=== PATIENT | female | born 1940 | race Caucasian/White ===

== ENCOUNTER 2022-02-10 09:44 | Inpatient (IN) ==
[2022-02-10] MEDS ORDERED: 0.9 % SODIUM CHLORIDE 1,000 ML IV ONE (09:50)
[2022-02-10 10:13] LABS: POC Calcium, Ionized 1.16 (1.16-1.32); POC Creatinine 1.7 (0.6-1.2); POC Potassium 4.3 (3.3-5.1)
--- NOTE | 2022-02-10 10:26 | Emergency Department Note ---
HPI General Chief complaint: Wound/Laceration Stated complaint: Lower Leg Infection Time Seen by Provider: 02/10/22 09:50 Source: patient Mode of arrival: wheelchair Limitations: no limitations History of Present Illness HPI Narrative: Narrative: 81-year-old female presents the emergency department with wounds on both legs. She is currently seeing wound care for these the wound care Dr. Wong actually came and spoke with me and wants the patient admitted for possible sepsis as well as infection on the legs and better wound care. Patient family state that her legs do seem to be getting worse. She started to get this more ulcers and pain in both lower extremity wounds. Does not believe it is a vascularity issue thinks it could just all be a cellulitis would like basic labs sepsis including CRP and procalcitonin ordered which will be done. Patient says that she really does not want to stay but understands that she is okay with staying in the hospital to get better treatment of her legs. Patient currently has no fevers or chills just does not feel well in the pain in the legs it seems to be getting worse and they are not healing. There is been no trauma to the legs. Related Data Home Medications Medication Instructions Recorded Confirmed allopurinol 300 mg tablet 300 mg PO QDAY 01/09/15 01/17/22 carvedilol 25 mg tablet 12.5 mg PO BID 01/09/15 01/17/22 pravastatin 40 mg tablet 40 mg PO QDAY 01/09/15 01/17/22 potassium chloride 20 mEq 20 meq PO QDAY 90 days #90 tabs 03/01/18 01/17/22 tablet,extended release(part/cryst) levothyroxine 100 mcg tablet 100 mcg PO .COMPLEX 30 days 02/20/19 01/17/22 acetaminophen 325 mg capsule 325 mg PO ONCE PRN 10/06/20 10/18/21 albuterol sulfate 90 mcg/actuation 2 puff inhalation Q4H PRN 10/06/20 01/17/22 aerosol inhaler isosorbide mononitrate 60 mg 60 mg PO QDAY 10/06/20 01/17/22 tablet,extended release 24 hr losartan 25 mg tablet 25 mg PO 10/06/20 01/17/22 warfarin 2.5 mg tablet 2.5 mg PO 10/06/20 01/17/22 Lactobacillus acidophilus 1 tab PO QDAY 12/14/20 10/18/21 [Probiotic Acidophilus] calcium carbonate [Antacid 1 tab PO QDAY 12/14/20 01/17/22 (calcium carbonate)] acetaminophen 300 mg-codeine 30 mg 1 tab PO Q6H PRN 01/17/22 01/17/22 tablet gabapentin 100 mg capsule 0 mg PO 01/17/22 01/17/22 metoprolol succinate 50 mg 50 mg PO QDAY 01/17/22 01/17/22 tablet,extended release 24 hr Previous Rx's Medication Instructions Recorded calcitriol 0.25 mcg capsule 0.25 mcg PO Q OTHER DAY #15 caps 07/13/21 torsemide 20 mg tablet 20 mg PO BID CHF #180 tabs 01/20/22 Allergies Allergy/AdvReac Type Severity Reaction Status Date / Time Sulfa (Sulfonamide Allergy Severe Unknown Verified 02/10/22 09:50 Antibiotics) NSAIDS (Non-Steroidal Allergy Intermediate Unknown Verified 02/10/22 09:50 Anti-Inflamma LIDYA Inhibitors Allergy Unknown Unknown Verified 02/10/22 09:50 morphine Allergy Unknown Nausea Verified 02/10/22 09:50 pantoprazole [From Protonix] Allergy Unknown Unknown Verified 02/10/22 09:50 paregoric Allergy Unknown Nausea Verified 02/10/22 09:50 tramadol Allergy Unknown Unknown Verified 02/10/22 09:50 Review of Systems ROS ROS Narrative: Narrative: All systems ED: reviewed and negative except as stated. PFSH Narrative Patient History Narrative: Narrative: Medical/Surgical/Family History All Active Problems (Updated 02/10/22 @ 14:40 by Mynor Curiel DO) Cellulitis (Acute) Cardiac pacemaker in situ (Chronic) Restrictive lung disease (Chronic) Varicose veins of lower extremities (Chronic) Chronic venous insufficiency (Chronic) Atrophic vaginitis (Chronic) Impaired fasting glucose (Chronic) Malaise and fatigue (Chronic) IBS (irritable bowel syndrome) (Chronic) Intrinsic asthma (Chronic) Hypertension, essential (Chronic) CKD (chronic kidney disease), stage III (Chronic) Cardiomyopathy, hypertensive (Chronic) Hyperlipidemia (Chronic) GERD (gastroesophageal reflux disease) (Chronic) Hypothyroidism (Chronic) Gout (Chronic) Morbid obesity (Chronic) Allergic rhinitis (Chronic) Gastric ulcer (Chronic ~2009) History of esophagogastroduodenoscopy (Chronic) Hiatal hernia (Chronic) History of colonoscopy (Chronic) Sigmoid diverticulosis (Chronic) Diverticulitis (Chronic) PVC (premature ventricular contraction) (Chronic) Skin ulcer (Chronic) Chronic rhinitis (Chronic) History of appendectomy (Chronic) History of hysterectomy (Chronic) Hx of BSO (bilateral salpingo-oophorectomy) (Chronic) S/P removal of thyroid nodule (Chronic) History of breast biopsy (Chronic) History of open reduction and internal fixation (ORIF) procedure (Chronic) History of knee replacement (Chronic) History of varicose vein stripping (Chronic) History of cardiac cath (Chronic) Hypertensive renal disease (Chronic) 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, 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) Secondary hyperparathyroidism of renal origin (Chronic) Sebaceous cyst (Chronic) Cellulitis of left leg (Chronic) Paroxysmal atrial fibrillation (Chronic) Venous insufficiency (Chronic) Right leg swelling (Chronic) Pansinusitis (Chronic) Familial hypercholesterolemia (Chronic) Abnormal fasting glucose (Chronic) Hair loss (Chronic) Soft tissue mass (Chronic) Neck pain (Chronic) Back pain, thoracic (Chronic) Lumbar radiculitis (Chronic) Closed head injury (Chronic) Osteoarthrosis-multiple sites (Chronic) Fibromyalgia (Chronic) Diarrhea (Chronic) Duodenitis without hemorrhage (Chronic) Redness (Chronic) Hemorrhoid (Chronic) Poor circulation (Chronic) Lymphedema of lower extremity (Acute) Stasis edema with ulcer and inflammation (Acute) Superficial incisional infection of surgical site (Acute) No-show for appointment (Acute) Medical History Abnormal fasting glucose Allergic rhinitis Atrophic vaginitis Back pain, thoracic 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, 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 BNP elevated, on B-blockers, loop diuretic and ARB Weigh 190's seems good (down from 204) Cardiac pacemaker in situ 2007 - Replaced 2013 - Biventricular ICD pulse generator with defibrillator Cardiomyopathy, hypertensive Cellulitis of left leg Chronic rhinitis Chronic venous insufficiency CKD (chronic kidney disease), stage III Stable CKD 3-4 with bland U/A Controlled HTN, systolic CHF and vascular disease likely etiology Closed head injury Diarrhea Diverticulitis 2008, 2010 Duodenitis without hemorrhage Familial hypercholesterolemia Fibromyalgia Gastric ulcer (~2009) GERD (gastroesophageal reflux disease) Gout Hair loss Hemorrhoid Internal, External Hiatal hernia Hyperlipidemia Hypertension, essential Hypertensive renal disease Hypothyroidism IBS (irritable bowel syndrome) Impaired fasting glucose Intrinsic asthma Lumbar radiculitis Malaise and fatigue Morbid obesity Neck pain Osteoarthrosis-multiple sites Pansinusitis Paroxysmal atrial fibrillation Poor circulation PVC (premature ventricular contraction) Redness Restrictive lung disease Right leg swelling Sebaceous cyst Secondary hyperparathyroidism of renal origin Low dose, calcitriol qOD Sigmoid diverticulosis 2010 Skin ulcer Both Legs Soft tissue mass Left thigh Varicose veins of lower extremities Venous insufficiency Surgical History History of appendectomy History of breast biopsy History of cardiac cath 2006 - Left History of colonoscopy History of esophagogastroduodenoscopy History of hysterectomy History of knee replacement Bilateral History of open reduction and internal fixation (ORIF) procedure Left Femur History of pacemaker (~2007) Replaced 2014 History of toe surgery Left great toenail medial slantback History of varicose vein stripping bilateral legs, left-2016 Hx of BSO (bilateral salpingo-oophorectomy) 1968 - For bleeding S/P removal of thyroid nodule Family History Mother Cardiac disease Essential hypertension HTN (hypertension) ASCVD (arteriosclerotic cardiovascular disease) Father Cardiac disease ASCVD (arteriosclerotic cardiovascular disease) Brother Cardiac disease Myocardial infarct Daughter Depression Social History Smoking Status: Never smoker Alcohol Intake Frequency: does not drink Substance Use: does not use Exam Narrative Narrative: Narrative: Vital signs noted General: Awake. Alert. No distress. Skin: Warm. Dry. No rash. Obvious open wounds but no involvement of the bones almost like bilateral ulcers in both lower extremities in the tib-fib area along the shins. No involvement of the ankles. There is generalized alert erythema to both lower extremities as well. There are 2+ bilateral pedal pulses. Normal sensation and normal range of motion in both lower extremities. HEENT: NCAT. PERRL. EOMI. No conjunctivitis. No nystagmus. No pharyngitis. Membranes moist. Neck: No PTP. Good ROM. No meningeal signs. No stridor. No thyromegaly. No JVD. Cardiovascular: RRR. No murmur. No rubs. No gallops. Respiratory: No respiratory distress. Breath sounds equal. Lungs clear. Gastrointestinal: Abdomen soft. No tenderness. No distention. Normal bowel sounds. No palpable organomegaly or masses. Back: No deformity. No CVAT. Musculoskeletal: No tenderness. No swelling. No erythema. No edema. Good peripheral pulses x 4 Lymphatic: No palpable adenopathy. Neurological: No focal neurological deficits observed. General Limitations: no limitations Course Vital Signs Vital signs: Vital Signs Temperature 97.5 F 02/10/22 09:47 Pulse Rate 89 02/10/22 09:47 Respiratory Rate 18 02/10/22 09:47 Blood Pressure 121/63 02/10/22 09:47 Pulse Oximetry (%) 98 02/10/22 09:47 Oxygen Delivery Method 02/10/22 09:47 Temperature 97.5 F 02/10/22 09:47 Pulse Rate 84 02/10/22 14:02 Respiratory Rate 18 02/10/22 09:47 Blood Pressure 116/58 02/10/22 14:02 Pulse Oximetry (%) 98 02/10/22 14:02 Oxygen Delivery Method 02/10/22 09:47 MDM MDM Narrative Medical decision making narrative: Narrative: Patient has obvious wounds to both lower extremities. This could easily be sepsis. I think she does need further wound care. I think it would be most beneficial for patient to be admitted for further wound care and possibly IV antibiotics. We will going get basic labs including CRP procalc itonin lactic acid and blood cultures. I will also go ahead and get bilateral duplex ultrasounds to be sure there is not a secondary to venous stasis be sure she does not have any blood clots. Patient and family are okay with this plan. He more about fluid overload so we will only give the patient 1 L of IV fluids then reevaluate she is not currently in septic shock or in severe sepsis at this time. Do not think she needs the full 30 mL per kg iv fluid bolus. Ultrasounds were done and they showed no signs of DVT but there is some venous stasis. Patient was started on antibiotics. Patient again has no signs of sirs or sepsis at this time. I do think patient does need IV antibiotics and further wound care. We will look at admitting the patient at this time. Spoke with . Who has agreed to admit the patient. Labs to come back she had no white blood cell count CRP and procalcitonin all came back just mildly elevated lactate was normal there is again no signs of sepsis or severe sepsis. Patient will be admitted in fair condition for bilateral lower leg cellulitis and will be Followed also by wound care. Sepsis Sepsis Identified: No Lab Data Result diagrams: 02/10/22 10:05 Labs: Lab Results 02/10/22 02/10/22 02/10/22 Range/Units 10:05 10:05 10:05 WBC 8.5 (4.5-11.0) K/mcL RBC 3.19 L (3.59-5.38) M/mcL Hgb 9.6 L (11.2-15.7) g/dL Hct 31.8 L (34.1-44.9) % POC Hct (36-48) MCV 99.7 (80.0-100.0) fL MCH 30.1 (26.0-34.0) pg MCHC 30.2 L (31.0-36.0) g/dL RDW 16.2 H (11.5-14.5) % Plt Count 172 (140-440) K/mcL MPV 10.1 (8.8-12.5) fL Immature Gran % (Auto) 0.6 H (0.0-0.5) % Neut % (Auto) 76.7 (38.0-78.0) % Lymph % (Auto) 6.6 L (15.5-49.0) % [place] % (Auto) 9.6 (1.0-12.0) % Eos % (Auto) 5.8 (0.0-7.0) % Baso % (Auto) 0.7 (0.0-2.0) % Lymph # (Auto) 0.56 L (1.50-4.80) K/mcL [place] # (Auto) 0.81 (0.10-0.90) K/mcL Eos # (Auto) 0.49 (0.00-0.70) K/mcL Baso # (Auto) 0.06 (0.00-0.30) K/mcL Immature Gran # 0.05 (0.00-0.05) K/mcl Absolute Neutrophils 6.51 (1.80-8.00) K/mcL PT (11.9-14.5) sec INR (0.9-1.1) VBG Lactic Acid < 0.2 L (0.5-2.0) mmol/L POC Sodium (133-145) POC Potassium (3.3-5.1) POC Chloride (96-108) POC Total CO2 (22-30) POC BUN (6-20) POC Creatinine (0.6-1.2) POC Glucose (70-105) POC WB Ioniz Calcium (1.16-1.32) C-Reactive Protein 8.50 H (0.03-0.80) mg/dL Procalcitonin 0.12 H (<0.10) ng/mL Urine Color Urine Appearance (Clear) Urine pH (5.0-9.0) Ur Specific [place] (1.000-1.035) Urine Protein (Negative) mg/dL Urine Glucose (UA) (Negative) mg/dL Urine Ketones (Negative) mg/dL Urine Occult Blood (Negative) mg/dL Urine Nitrate (Negative) Urine Bilirubin (Negative) mg/dL Urine Urobilinogen mg/dL Ur Leukocyte Esterase (Negative) /uL Urine RBC (0-3) /hpf Urine WBC (0-4) /hpf Ur Squamous Epith Cells (0-4) /hpf Ur Transition Epith Cell (0-2) /hpf Urine Bacteria (0) /hpf Hyaline Casts (0-2) /lph Urine Mucus (None) /hpf Ur Culture Indicated? 02/10/22 02/10/22 02/10/22 Range/Units 10:05 10:10 10:26 WBC (4.5-11.0) K/mcL RBC (3.59-5.38) M/mcL Hgb (11.2-15.7) g/dL Hct (34.1-44.9) % POC Hct 31.0 L (36-48) MCV (80.0-100.0) fL MCH (26.0-34.0) pg MCHC (31.0-36.0) g/dL RDW (11.5-14.5) % Plt Count (140-440) K/mcL MPV (8.8-12.5) fL Immature Gran % (Auto) (0.0-0.5) % Neut % (Auto) (38.0-78.0) % Lymph % (Auto) (15.5-49.0) % [place] % (Auto) (1.0-12.0) % Eos % (Auto) (0.0-7.0) % Baso % (Auto) (0.0-2.0) % Lymph # (Auto) (1.50-4.80) K/mcL [place] # (Auto) (0.10-0.90) K/mcL Eos # (Auto) (0.00-0.70) K/mcL Baso # (Auto) (0.00-0.30) K/mcL Immature Gran # (0.00-0.05) K/mcl Absolute Neutrophils (1.80-8.00) K/mcL PT 26.7 H (11.9-14.5) sec INR 2.4 H (0.9-1.1) VBG Lactic Acid (0.5-2.0) mmol/L POC Sodium 138 (133-145) POC Potassium 4.3 (3.3-5.1) POC Chloride 108 (96-108) POC Total CO2 21.0 L (22-30) POC BUN 51 H (6-20) POC Creatinine 1.7 H (0.6-1.2) POC Glucose 133 H (70-105) POC WB Ioniz Calcium 1.16 (1.16-1.32) C-Reactive Protein (0.03-0.80) mg/dL Procalcitonin (<0.10) ng/mL Urine Color Yellow Urine Appearance Cloudy A (Clear) Urine pH 5.0 (5.0-9.0) Ur Specific [place] 1.020 (1.000-1.035) Urine Protein 30 A (Negative) mg/dL Urine Glucose (UA) Negative (Negative) mg/dL Urine Ketones Negative (Negative) mg/dL Urine Occult Blood 0.03 (Negative) mg/dL Urine Nitrate Negative (Negative) Urine Bilirubin Negative (Negative) mg/dL Urine Urobilinogen Negative mg/dL Ur Leukocyte Esterase 250 A (Negative) /uL Urine RBC 4 H (0-3) /hpf Urine WBC 11 H (0-4) /hpf Ur Squamous Epith Cells 6 H (0-4) /hpf Ur Transition Epith Cell < 1 (0-2) /hpf Urine Bacteria Few A (0) /hpf Hyaline Casts 9 H (0-2) /lph Urine Mucus Few A (None) /hpf Ur Culture Indicated? No Discharge Plan Patient/Caregiver Discharge Instructions Pt seen by [employer]/PA only: No Clinical Impression: Cellulitis Activity: increase activity as tolerated Patient Disposition: Xfer As Outpt/Obs ([facility]) Condition: Fair Follow up with: Susan Abad ARNP [Primary Care Provider] - Prescriptions: No Action calcitriol 0.25 mcg capsule 0.25 mcg PO Q OTHER DAY Qty: 15 11RF torsemide 20 mg tablet 20 mg PO BID Qty: 180 3RF Rx Instructions: New dose carvedilol 25 mg tablet 12.5 mg PO BID Rx Instructions: administer with food pravastatin 40 mg tablet 40 mg PO QDAY allopurinol 300 mg tablet 300 mg PO QDAY albuterol sulfate 90 mcg/actuation HFA aerosol inhaler 2 puff INHALATION Q4H PRN Rx Instructions: administer with spacer calcium carbonate [Antacid (calcium carbonate)] 1 tab PO QDAY Lactobacillus acidophilus [Probiotic Acidophilus] 1 tab PO QDAY potassium chloride 20 mEq tablet,ER particles/crystals 20 meq PO QDAY 90 Days Qty: 90 levothyroxine 100 mcg tablet 100 mcg PO .COMPLEX 30 Days Rx Instructions: 100 mcg PO Every other day with 75mg on other days; losartan 25 mg tablet 25 mg PO Label Comments: take 1/2 tablet by mouth twice a day isosorbide mononitrate 60 mg tablet extended release 24 hr 60 mg PO QDAY Label Comments: take 1 tablet by mouth every morning warfarin 2.5 mg tablet 2.5 mg PO Label Comments: take 2 tablets by mouth once daily EXCEPT 1 TABLET ON SUN, MON, AND THURS acetaminophen 325 mg capsule 325 mg PO ONCE PRN metoprolol succinate 50 mg tablet extended release 24 hr 50 mg PO QDAY Label Comments: take 1 tablet by mouth twice a day acetaminophen-codeine 300-30 mg tablet 1 tab PO Q6H PRN gabapentin 100 mg capsule 0 mg PO
[2022-02-10 10:53] LABS: Basophils # (Auto) 0.06 K/mcL (0.00-0.30); Basophils % (Auto) 0.7 % (0.0-2.0); Eosinophils # (Auto) 0.49 K/mcL (0.00-0.70); Eosinophils % (Auto) 5.8 % (0.0-7.0); Hematocrit 31.8 % (34.1-44.9); Hemoglobin 9.6 g/dL (11.2-15.7); Lymphocytes # (Auto) 0.56 K/mcL (1.50-4.80); Lymphocytes % (Auto) 6.6 % (15.5-49.0); Mean Cell Volume 99.7 fL (80.0-100.0); Mean Corpuscular HGB Conc 30.2 g/dL (31.0-36.0); Mean Platelet Volume 10.1 fL (8.8-12.5); Monocytes # (Auto) 0.81 K/mcL (0.10-0.90); Monocytes % (Auto) 9.6 % (1.0-12.0); Neutrophils % (Auto) 76.7 % (38.0-78.0); Platelet Count 172 K/mcL (140-440); RBC 3.19 M/mcL (3.59-5.38); Red Cell Distribution Width 16.2 % (11.5-14.5); WBC 8.5 K/mcL (4.5-11.0)
[2022-02-10] MEDS ORDERED: cefTRIAXone 1 GM VIAL IV ONE (11:16)
[2022-02-10 11:25] LABS: INR 2.4 (0.9-1.1); Prothrombin Time 26.7 sec (11.9-14.5)
[2022-02-10 11:47] LABS: Appearance,Urine CLOUDY (Clear); Bacteria,Urine FEW /hpf (0); Bilirubin,Urine Negative (Negative); Color,Urine YELLOW; Culture Indicated,Urine No; Glucose,Urine (UA) Negative (Negative); Ketones,Urine Negative (Negative); Leukocyte Esterase,Urine 250 /uL (Negative); Mucus,Urine FEW /hpf; Nitrate,Urine Negative (Negative); Protein,Urine 30 mg/dL (Negative); Urine Blood 0.03 mg/dL (Negative); Urine Hyaline Cast 9 /lph (0-2); Urine RBC 4 /hpf (0-3); Urine Squamous Epithelial Cell 6 /hpf (0-4); Urine Transitional Epi Cells < 1 /hpf (0-2); Urine WBC 11 /hpf (0-4); Urobilinogen,Urine Negative
--- NOTE | 2022-02-10 11:54 | Ultrasound Report ---
CLINICAL INFORMATION: Bilateral leg swelling COMPARISON: None. FINDINGS: The entire deep venous system of both lower extremities including the common femoral, superficial femoral, popliteal and paired trifurcation calf veins are easily compressible and show normal venous blood flow on color and spectral Doppler. No evidence of thrombus IMPRESSION: Negative exam - no evidence of deep vein thrombosis in either lower extremity. Moderate reflux in both greater saphenous and lesser saphenous veins suggests venous insufficiency. Interpreted and Authenticated by: Cristopher Davalos 02/10/22
[2022-02-10] MEDS ORDERED: ACETAMINOPHEN W/CODEINE #3 1 TABLET PO ONE (13:04)
--- NOTE | 2022-02-10 14:33 | Internal Med History&Physical ---
HPI History of Present Illness Patient information: Note initiated : 02/10/22 at 2:31 pm Service Date, if different from initiated Date: [] Patient: Courtney Reid a 81 y/o F admitted on for Lower Leg Infection. Chief Complaint: [] History of present illness: Ms. Reid is a 81 year old F With history of bilateral lower extremity wounds for several months has been following with Dr. Berrios. Sent from Dr. Berrios office due to concerns of sepsis with cellulitis of the wounds which are draining and painful and red and warm. Patient states over the past week her legs have become increasingly tender. She states are always erythematous and started felt that is different but they are definitely more painful and she is also had more swelling past couple days. She denies fevers or chills. In the ED she was evaluated she had vital stable signs and a normal temperature. Her CRP was elevated 8.5. She admits to feeling constipated from pain medications. Review of Systems: Pertinent positives as above. Denies headache/fever/chills/naus ea/vomiting/chest or abdominal pain/cough/dyspnea/diarrhea. Remaining 10 point review of system reviewed negative PFSH PFSH All Active Problems (Updated 02/10/22 @ 14:40 by Mynor Curiel DO) Cellulitis (Acute) Cardiac pacemaker in situ (Chronic) Restrictive lung disease (Chronic) Varicose veins of lower extremities (Chronic) Chronic venous insufficiency (Chronic) Atrophic vaginitis (Chronic) Impaired fasting glucose (Chronic) Malaise and fatigue (Chronic) IBS (irritable bowel syndrome) (Chronic) Intrinsic asthma (Chronic) Hypertension, essential (Chronic) CKD (chronic kidney disease), stage III (Chronic) Cardiomyopathy, hypertensive (Chronic) Hyperlipidemia (Chronic) GERD (gastroesophageal reflux disease) (Chronic) Hypothyroidism (Chronic) Gout (Chronic) Morbid obesity (Chronic) Allergic rhinitis (Chronic) Gastric ulcer (Chronic ~2009) History of esophagogastroduodenoscopy (Chronic) Hiatal hernia (Chronic) History of colonoscopy (Chronic) Sigmoid diverticulosis (Chronic) Diverticulitis (Chronic) PVC (premature ventricular contraction) (Chronic) Skin ulcer (Chronic) Chronic rhinitis (Chronic) History of appendectomy (Chronic) History of hysterectomy (Chronic) Hx of BSO (bilateral salpingo-oophorectomy) (Chronic) S/P removal of thyroid nodule (Chronic) History of breast biopsy (Chronic) History of open reduction and internal fixation (ORIF) procedure (Chronic) History of knee replacement (Chronic) History of varicose vein stripping (Chronic) History of cardiac cath (Chronic) Hypertensive renal disease (Chronic) 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, 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) Secondary hyperparathyroidism of renal origin (Chronic) Sebaceous cyst (Chronic) Cellulitis of left leg (Chronic) Paroxysmal atrial fibrillation (Chronic) Venous insufficiency (Chronic) Right leg swelling (Chronic) Pansinusitis (Chronic) Familial hypercholesterolemia (Chronic) Abnormal fasting glucose (Chronic) Hair loss (Chronic) Soft tissue mass (Chronic) Neck pain (Chronic) Back pain, thoracic (Chronic) Lumbar radiculitis (Chronic) Closed head injury (Chronic) Osteoarthrosis-multiple sites (Chronic) Fibromyalgia (Chronic) Diarrhea (Chronic) Duodenitis without hemorrhage (Chronic) Redness (Chronic) Hemorrhoid (Chronic) Poor circulation (Chronic) Lymphedema of lower extremity (Acute) Stasis edema with ulcer and inflammation (Acute) Superficial incisional infection of surgical site (Acute) No-show for appointment (Acute) Medical History Abnormal fasting glucose Allergic rhinitis Atrophic vaginitis Back pain, thoracic 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, 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 BNP elevated, on B-blockers, loop diuretic and ARB Weigh 190's seems good (down from 204) Cardiac pacemaker in situ 2007 - Replaced 2013 - Biventricular ICD pulse generator with defibrillator Cardiomyopathy, hypertensive Cellulitis of left leg Chronic rhinitis Chronic venous insufficiency CKD (chronic kidney disease), stage III Stable CKD 3-4 with bland U/A Controlled HTN, systolic CHF and vascular disease likely etiology Closed head injury Diarrhea Diverticulitis 2008, 2010 Duodenitis without hemorrhage Familial hypercholesterolemia Fibromyalgia Gastric ulcer (~2009) GERD (gastroesophageal reflux disease) Gout Hair loss Hemorrhoid Internal, External Hiatal hernia Hyperlipidemia Hypertension, essential Hypertensive renal disease Hypothyroidism IBS (irritable bowel syndrome) Impaired fasting glucose Intrinsic asthma Lumbar radiculitis Malaise and fatigue Morbid obesity Neck pain Osteoarthrosis-multiple sites Pansinusitis Paroxysmal atrial fibrillation Poor circulation PVC (premature ventricular contraction) Redness Restrictive lung disease Right leg swelling Sebaceous cyst Secondary hyperparathyroidism of renal origin Low dose, calcitriol qOD Sigmoid diverticulosis 2010 Skin ulcer Both Legs Soft tissue mass Left thigh Varicose veins of lower extremities Venous insufficiency Surgical History History of appendectomy History of breast biopsy History of cardiac cath 2006 - Left History of colonoscopy History of esophagogastroduodenoscopy History of hysterectomy History of knee replacement Bilateral History of open reduction and internal fixation (ORIF) procedure Left Femur History of pacemaker (~2007) Replaced 2013 History of toe surgery Left great toenail medial slantback History of varicose vein stripping bilateral legs, left-2016 Hx of BSO (bilateral salpingo-oophorectomy) 1968 - For bleeding S/P removal of thyroid nodule Family History Mother Cardiac disease Essential hypertension HTN (hypertension) ASCVD (arteriosclerotic cardiovascular disease) Father Cardiac disease ASCVD (arteriosclerotic cardiovascular disease) Brother Cardiac disease Myocardial infarct Daughter Depression Social History household members: significant other marital status: occupational status: retired occupation: [employer] physical activity: none smoking status: Never smoker alcohol intake frequency: does not drink substance use type: does not use MEDS/ALLERGIES Home Medications and Allergies Home Medications Medication Instructions Recorded Confirmed Type allopurinol 300 mg tablet 300 mg PO QDAY 01/09/15 01/17/22 History carvedilol 25 mg tablet 12.5 mg PO BID 01/09/15 01/17/22 History pravastatin 40 mg tablet 40 mg PO QDAY 01/09/15 01/17/22 History potassium chloride 20 mEq 20 meq PO QDAY 90 days #90 tabs 03/01/18 01/17/22 History tablet,extended release(part/cryst) levothyroxine 100 mcg tablet 100 mcg PO .COMPLEX 30 days 02/20/19 01/17/22 History acetaminophen 325 mg capsule 325 mg PO ONCE PRN 10/06/20 10/18/21 History albuterol sulfate 90 mcg/actuation 2 puff inhalation Q4H PRN 10/06/20 01/17/22 History aerosol inhaler isosorbide mononitrate 60 mg 60 mg PO QDAY 10/06/20 01/17/22 History tablet,extended release 24 hr losartan 25 mg tablet 25 mg PO 10/06/20 01/17/22 History warfarin 2.5 mg tablet 2.5 mg PO 10/06/20 01/17/22 History Lactobacillus acidophilus 1 tab PO QDAY 12/14/20 10/18/21 History [Probiotic Acidophilus] calcium carbonate [Antacid 1 tab PO QDAY 12/14/20 01/17/22 History (calcium carbonate)] calcitriol 0.25 mcg capsule 0.25 mcg PO Q OTHER DAY #15 caps 07/13/21 01/17/22 Rx acetaminophen 300 mg-codeine 30 mg 1 tab PO Q6H PRN 01/17/22 01/17/22 History tablet gabapentin 100 mg capsule 0 mg PO 01/17/22 01/17/22 History metoprolol succinate 50 mg 50 mg PO QDAY 01/17/22 01/17/22 History tablet,extended release 24 hr torsemide 20 mg tablet 20 mg PO BID CHF #180 tabs 01/20/22 Rx Allergies Allergy/AdvReac Type Severity Reaction Status Date / Time Sulfa (Sulfonamide Allergy Severe Unknown Verified 02/10/22 09:50 Antibiotics) NSAIDS (Non-Steroidal Allergy Intermediate Unknown Verified 02/10/22 09:50 Anti-Inflamma LIDYA Inhibitors Allergy Unknown Unknown Verified 02/10/22 09:50 morphine Allergy Unknown Nausea Verified 02/10/22 09:50 pantoprazole [From Protonix] Allergy Unknown Unknown Verified 02/10/22 09:50 paregoric Allergy Unknown Nausea Verified 02/10/22 09:50 tramadol Allergy Unknown Unknown Verified 02/10/22 09:50 EXAM Constitutional Vitals: Temp Pulse Resp BP Pulse Ox O2 Del Method 97.5 F 84 18 116/58 98 02/10/22 09:47 02/10/22 14:02 02/10/22 09:47 02/10/22 14:02 02/10/22 14:02 02/10/22 09:47 Exam: General: Alert, Awake, No acute Distress, obese Eyes/N/T: EOMI, Head/Neck: neck supple, normocephalic atraumatic CV: RRR with occ irreg, No murmurs, normal s1/s2 Pulm: Clear b/l, no wheezing/rhonchi/rales Abd: soft, nontender, +BS x4 Ext: no clubbing/cyanosis, b/l LE edema/erythema/TTP/warmth/drainage Neuro: Alert, no focal deficits, moves all extremities, CN 2-12 grossly intact, sensations intact b/l upper/lower Skin: warm/dry DATA Data Completed and Pending Labs: Labs from last 24 hours 02/10/22 02/10/22 02/10/22 10:26 10:10 10:05 WBC RBC Hgb Hct POC Hct 31.0 L MCV MCH MCHC RDW Plt Count MPV Immature Gran % (Auto) Neut % (Auto) Lymph % (Auto) [place] % (Auto) Eos % (Auto) Baso % (Auto) Lymph # (Auto) [place] # (Auto) Eos # (Auto) Baso # (Auto) Immature Gran # Absolute Neutrophils PT 26.7 H INR 2.4 H VBG Lactic Acid POC Sodium 138 POC Potassium 4.3 POC Chloride 108 POC Total CO2 21.0 L POC BUN 51 H POC Creatinine 1.7 H POC Glucose 133 H POC WB Ioniz Calcium 1.16 C-Reactive Protein Procalcitonin Urine Color Yellow Urine Appearance Cloudy A Urine pH 5.0 Ur Specific [place] 1.020 Urine Protein 30 A Urine Glucose (UA) Negative Urine Ketones Negative Urine Occult Blood 0.03 Urine Nitrate Negative Urine Bilirubin Negative Urine Urobilinogen Negative Ur Leukocyte Esterase 250 A Urine RBC 4 H Urine WBC 11 H Ur Squamous Epith Cells 6 H Ur Transition Epith Cell < 1 Urine Bacteria Few A Hyaline Casts 9 H Urine Mucus Few A Ur Culture Indicated? No 02/10/22 02/10/22 02/10/22 10:05 10:05 10:05 WBC 8.5 RBC 3.19 L Hgb 9.6 L Hct 31.8 L POC Hct MCV 99.7 MCH 30.1 MCHC 30.2 L RDW 16.2 H Plt Count 172 MPV 10.1 Immature Gran % (Auto) 0.6 H Neut % (Auto) 76.7 Lymph % (Auto) 6.6 L [place] % (Auto) 9.6 Eos % (Auto) 5.8 Baso % (Auto) 0.7 Lymph # (Auto) 0.56 L [place] # (Auto) 0.81 Eos # (Auto) 0.49 Baso # (Auto) 0.06 Immature Gran # 0.05 Absolute Neutrophils 6.51 PT INR VBG Lactic Acid < 0.2 L POC Sodium POC Potassium POC Chloride POC Total CO2 POC BUN POC Creatinine POC Glucose POC WB Ioniz Calcium C-Reactive Protein 8.50 H Procalcitonin 0.12 H Urine Color Urine Appearance Urine pH Ur Specific [place] Urine Protein Urine Glucose (UA) Urine Ketones Urine Occult Blood Urine Nitrate Urine Bilirubin Urine Urobilinogen Ur Leukocyte Esterase Urine RBC Urine WBC Ur Squamous Epith Cells Ur Transition Epith Cell Urine Bacteria Hyaline Casts Urine Mucus Ur Culture Indicated? A/P Narrative A/P Narrative: A: *b/l LE cellulitis R>L: * *CKD IV: Follows with Dr. Smith *Anemia, chronic: *h/o CHF: on ARB/BB/Torsemide *h/o PAFib w/PPM: on BB/Warfarin *Hypothyroidism: *HTN/HLD: *Obesity: BMI 31 P: -IV abx -pending BC/WC -f/u CT leg -Dr. Berrios for wound care -repeat UA -Continue home BB/ARB/Imdur/torsemide - -Home medication reconciliation -PT/OT -CM for placement needs -ppx: Warfarin per pharmacy DNR Time Spent With Patient Time: Total time spent is greater than 50% in coordination of care (as documented) at patient's floor/unit and/or counseling patient: Total time spent with greater than 50% in coordination of care (as documented) at patient's floor/unit and/or counseling patient:: Greater than 70 minutes
--- NOTE | 2022-02-10 16:01 | Cat Scan Report ---
CLINICAL INFORMATION: Cellulitis and swelling. Evaluate for abscess COMPARISON: None. TECHNIQUE: 0.625 mm helical slices were obtained from the mid tibia fibula through the foot and ankle.2.5 cm sagittal coronal axial reformatted images were processed and reviewed in bone and soft tissue windows. FINDINGS: Bone windows show no evidence of osteomyelitis or other significant osseous lesion. There are scattered tiny cysts within the tarsometatarsal regions of the foot compatible with degeneration. Mild hallux valgus deformity and also hammertoe deformities first through fifth digits noted. There is moderate degeneration in the talonavicular joint and also all of the MTT joints. Diffuse cellulitis seen throughout the calf and ankle. Scattered calcified phleboliths noted within superficial congested varicose veins. IMPRESSION: Diffuse cellulitis. No evidence of soft tissue abscess or osteomyelitis. Other chronic findings as as described Interpreted and Authenticated by: Cristopher Davalos 02/10/22
[2022-02-10] MEDS ORDERED: POLYETHYLENE GLYCOL 3350 17 GM PACKET PO ONE (16:41)
[2022-02-10] MEDS ORDERED: IPRATROPIUM/ALBUTEROL 3 ML AMPUL.NEB NEB PRN (16:41)
[2022-02-10] MEDS ORDERED: POTASSIUM CHLORIDE 40 MEQ in DEXTROSE 5% IN WATER 500 ML IV PRN (16:41)
[2022-02-10] MEDS ORDERED: METOCLOPRAMIDE 10 MG/2 ML VIAL IV PRN (16:41)
[2022-02-10] MEDS ORDERED: POTASSIUM CHLORIDE 20 MEQ TABLET PO PRN ×2 (16:41)
[2022-02-10] MEDS ORDERED: MAGNESIUM SULFATE 2 GM/50 ML BAG IV PRN (16:41)
[2022-02-10] MEDS ORDERED: LACTULOSE 20 GM/30 ML ORAL.SOL PO PRN (16:41)
[2022-02-10] MEDS ORDERED: POLYETHYLENE GLYCOL 3350 17 GM PACKET PO PRN (16:41)
[2022-02-10] MEDS: HYDROmorphone 0.5 MG/0.5 ML SYRINGE IV PRN ×3 (17:24→23:53)
[2022-02-10] MEDS ORDERED: WARFARIN 2.5 MG TABLET PO ONE (18:00)
[2022-02-10] MEDS: PIPERACILLIN SODIUM/TAZOBACTAM 2.25 GM in DEXTROSE 5% IN WATER 50 ML IV SCH ×2 (18:05→23:54)
[2022-02-10 18:47] LABS: Appearance,Urine CLOUDY (Clear); Bilirubin,Urine Negative (Negative); Color,Urine YELLOW; Culture Indicated,Urine No; Glucose,Urine (UA) Negative (Negative); Ketones,Urine Negative (Negative); Leukocyte Esterase,Urine 500 /uL (Negative); Nitrate,Urine Negative (Negative); Protein,Urine Negative (Negative); Specific Gravity,Urine 1.018 (1.000-1.035); Urine Blood 0.03 mg/dL (Negative); Urine RBC 4 /hpf (0-3); Urine Squamous Epithelial Cell 24 /hpf (0-4); Urine WBC 22 /hpf (0-4); Urobilinogen,Urine Negative
[2022-02-10] MEDS: 0.9 % SODIUM CHLORIDE 10 ML SYRINGE IV SCH (21:52)
[2022-02-10] MEDS: SENNOSIDES 1 TABLET PO PRN (21:52)
[2022-02-10] MEDS: DOCUSATE SODIUM 100 MG CAPSULE PO SCH (21:52)
[2022-02-11] MEDS: HYDROcodone/APAP 5/325MG TABLET PO PRN ×3 (02:08→15:50)
[2022-02-11] MEDS: ONDANSETRON 4 MG/2 ML VIAL IV PRN (02:08)
[2022-02-11] MEDS: 0.9 % SODIUM CHLORIDE 10 ML SYRINGE IV SCH ×3 (05:55→20:29)
[2022-02-11] MEDS: PIPERACILLIN SODIUM/TAZOBACTAM 2.25 GM in DEXTROSE 5% IN WATER 50 ML IV SCH ×4 (05:55→23:56)
[2022-02-11 06:06] LABS: Hematocrit 29.3 % (34.1-44.9); Hemoglobin 8.8 g/dL (11.2-15.7); Mean Cell Volume 98.3 fL (80.0-100.0); Mean Platelet Volume 10.2 fL (8.8-12.5); Platelet Count 169 K/mcL (140-440); RBC 2.98 M/mcL (3.59-5.38); Red Cell Distribution Width 16.1 % (11.5-14.5); WBC 9.4 K/mcL (4.5-11.0)
[2022-02-11 06:34] LABS: INR 3.2 (0.9-1.1); Prothrombin Time 33.5 sec (11.9-14.5)
[2022-02-11 06:49] LABS: ALT/SGPT < 5 U/L (<40); AST/SGOT 13 U/L (<32); Albumin/Globulin Ratio 1.1 (1.0-2.3); Alkaline Phosphatase 162 U/L (39-117); Bilirubin,Direct 0.5 mg/dL (<0.3); Bilirubin,Total 0.7 mg/dL (0.1-1.0); Blood Urea Nitrogen 35 mg/dL (8-23); Calcium 8.1 mg/dL (8.6-10.4); Carbon Dioxide 20 mmol/L (22-30); Chloride 106 mmol/L (96-108); Globulin 2.7 gm/dL (2.2-3.7); Glomerular Filtration Rate 35; Glucose 109 mg/dL (70-105); Lactate Dehydrogenase 121 U/L (135-225); Phosphorous 2.4 mg/dL (2.5-4.5); Triglycerides 80 mg/dL (<150); Uric Acid 5.1 mg/dL (2.5-8.0)
[2022-02-11 07:06] LABS: Anisocytosis 1+ (None Seen); Eosinophils % (Manual) 8 % (0-7); Lymphocytes % 6 % (15-49); Monocytes % (Manual) 11 % (1-12); Ovalocytes FEW (None Seen); Platelet Estimate NORMAL (Normal); RBC Morphology ABNORMAL (Normal); Segmented Neutrophils % 75 % (38-78)
--- NOTE | 2022-02-11 08:10 | Internal Med Progress Note ---
SUBJECTIVE Subjective Patient information: Note initiated : 02/11/22 at 8:04 am Service Date, if different from initiated Date: [] Patient: Courtney Reid a 81 y/o F admitted on 02/10/22 for Lower Leg Infection. Chief Complaint: [] Interval history: History of present illness: Ms. Reid is a 81 year old F With history of bilateral lower extremity wounds for several months has been following with Dr. Berrios. Sent from Dr. Berrios office due to concerns of sepsis with cellulitis of the wounds which are draining and painful and red and warm. Patient states over the past week her legs have become increasingly tender. She states are always erythematous and started felt that is different but they are definitely more painful and she is also had more swelling past couple days. She denies fevers or chills. In the ED she was evaluated she had vital stable signs and a normal temperature. Her CRP was elevated 8.5. She admits to feeling constipated from pain medications. 02/11 Patient says she is a little uncomfortable and had poor sleep. Other than that it was some reported chills she denies any other complaints. Awaiting cultures. Anemia present. Awaiting Dr. Berrios's evaluation and wound care. Review of Systems: denies headache/fever/chills/nausea/vomiting/chest or abdominal pain/cough/dyspnea/diarrhea. Otherwise see above. Constitutional Vitals: Vital Signs Temp Pulse Resp BP Pulse Ox O2 Del Method 98.9 F 93 H 16 92/51 91 02/10/22 23:46 02/11/22 04:37 02/11/22 04:37 02/11/22 04:37 02/11/22 04:37 02/11/22 04:37 Period Temp Pulse Resp BP Sys/Landry Pulse Ox O2 Del Method O2 Flow Rate Last 24 Hr 97.5 F-98.9 F 78-102 16-18 92-122/51-89 90-98 Room Air-Room Air Intake and Output 02/10/22 02/11/22 02/11/22 21:59 05:59 13:59 Intake Total 50 770 50 Output Total 425 225 Balance -375 545 50 Weight 84.867 kg Intake & Output: Intake & Output 02/10/22 02/11/22 02/11/22 21:59 05:59 13:59 Intake Total 50 770 50 Output Total 425 225 Balance -375 545 50 Weight 84.867 kg Intake: IV 50 50 50 Zosyn 2.25 gm In Dextrose 5% in 50 50 50 Water 50 ml @ 100 mls/hr IV Q6H [facility] Rx#:[id number] Oral 720 Output: Void Amount 425 225 Other: Urine Appearance Clear Cloudy Urine Color Dark Yellow Yellow Urine Odor Normal Normal Exam: General: Alert, Awake, No acute Distress, obese Eyes/N/T: EOMI, Head/Neck: neck supple, CV: RRR with occ irreg, No murmurs, Pulm: Clear b/l, no wheezing/rhonchi/rales Abd: soft, nontender, +BS x4 Ext: no clubbing/cyanosis, b/l LE edema/erythema/TTP/warmth/drainage Neuro: Alert, no focal deficits, moves all extremities Skin: warm/dry OBJ DATA Labs CBC & Chem 7: 02/11/22 05:10 02/11/22 05:09 Labs: Abnormal Lab Results 02/11/22 02/11/22 02/11/22 05:10 05:10 05:09 RBC 2.98 L Hgb 8.8 L Hct 29.3 L POC Hct MCHC 30.0 L RDW 16.1 H Immature Gran % (Auto) Lymph % (Auto) Lymph # (Auto) Lymphocytes % 6 L Eosinophils % (Manual) 8 H RBC Morphology Abnormal A Anisocytosis 1+ A Ovalocytes Few A PT 33.5 H INR 3.2 H VBG Lactic Acid Carbon Dioxide 20 L POC Total CO2 POC BUN BUN 35 H Creatinine 1.4 H POC Creatinine Glucose 109 H POC Glucose Calcium 8.1 L Phosphorus 2.4 L Direct Bilirubin 0.5 H GGT 63 H Alkaline Phosphatase 162 H Lactate Dehydrogenase 121 L C-Reactive Protein Total Protein 5.7 L Albumin 3.0 L Procalcitonin Urine Appearance Urine Protein Ur Leukocyte Esterase Urine RBC Urine WBC Ur Squamous Epith Cells Urine Bacteria Hyaline Casts Urine Mucus 02/10/22 02/10/22 02/10/22 17:50 10:26 10:10 RBC Hgb Hct POC Hct 31.0 L MCHC RDW Immature Gran % (Auto) Lymph % (Auto) Lymph # (Auto) Lymphocytes % Eosinophils % (Manual) RBC Morphology Anisocytosis Ovalocytes PT INR VBG Lactic Acid Carbon Dioxide POC Total CO2 21.0 L POC BUN 51 H BUN Creatinine POC Creatinine 1.7 H Glucose POC Glucose 133 H Calcium Phosphorus Direct Bilirubin GGT Alkaline Phosphatase Lactate Dehydrogenase C-Reactive Protein Total Protein Albumin Procalcitonin Urine Appearance Cloudy A Cloudy A Urine Protein 30 A Ur Leukocyte Esterase 500 A 250 A Urine RBC 4 H 4 H Urine WBC 22 H 11 H Ur Squamous Epith Cells 24 H 6 H Urine Bacteria Few A Hyaline Casts 9 H Urine Mucus Few A 02/10/22 02/10/22 02/10/22 10:05 10:05 10:05 RBC Hgb Hct POC Hct MCHC RDW Immature Gran % (Auto) Lymph % (Auto) Lymph # (Auto) Lymphocytes % Eosinophils % (Manual) RBC Morphology Anisocytosis Ovalocytes PT 26.7 H INR 2.4 H VBG Lactic Acid < 0.2 L Carbon Dioxide POC Total CO2 POC BUN BUN Creatinine POC Creatinine Glucose POC Glucose Calcium Phosphorus Direct Bilirubin GGT Alkaline Phosphatase Lactate Dehydrogenase C-Reactive Protein 8.50 H Total Protein Albumin Procalcitonin 0.12 H Urine Appearance Urine Protein Ur Leukocyte Esterase Urine RBC Urine WBC Ur Squamous Epith Cells Urine Bacteria Hyaline Casts Urine Mucus 02/10/22 10:05 RBC 3.19 L Hgb 9.6 L Hct 31.8 L POC Hct MCHC 30.2 L RDW 16.2 H Immature Gran % (Auto) 0.6 H Lymph % (Auto) 6.6 L Lymph # (Auto) 0.56 L Lymphocytes % Eosinophils % (Manual) RBC Morphology Anisocytosis Ovalocytes PT INR VBG Lactic Acid Carbon Dioxide POC Total CO2 POC BUN BUN Creatinine POC Creatinine Glucose POC Glucose Calcium Phosphorus Direct Bilirubin GGT Alkaline Phosphatase Lactate Dehydrogenase C-Reactive Protein Total Protein Albumin Procalcitonin Urine Appearance Urine Protein Ur Leukocyte Esterase Urine RBC Urine WBC Ur Squamous Epith Cells Urine Bacteria Hyaline Casts Urine Mucus Meds: Medications Acetaminophen (Acetaminophen 325 Mg Tablet) 650 mg PO Q6HP PRN; Protocol PRN Reason: Per Pain Protocol/Fever > 101 Hydrocodone Bitart/Acetaminophen (Hydrocodone/Apap 5/325mg Tablet) 1 tab PO Q4HP PRN PRN Reason: PAIN LEVEL 3-6 Last Admin: 02/11/22 02:08 Dose: 1 tab Albuterol/Ipratropium (Ipratropium/Albuterol 3 Ml Ampul.Neb) 3 ml NEB Q4HP PRN PRN Reason: Shortness Of Breath Docusate Sodium (Docusate Sodium 100 Mg Capsule) 100 mg PO BID EDIE Last Admin: 02/10/22 21:52 Dose: 100 mg Hydromorphone HCl (Hydromorphone 0.5 Mg/0.5 Ml Syringe) 0 mg IV Q2HP PRN PRN Reason: Pain Last Admin: 02/10/22 23:53 Dose: 0.5 mg Potassium Chloride 40 meq/ (Dextrose) 520 mls @ 130 mls/hr IV UD PRN PRN Reason: Potassium < 3 Magnesium Sulfate (Magnesium Sulfate) 2 gm in 50 mls @ 50 mls/hr IV UD PRN PRN Reason: Magnesium </= 1.6 Piperacillin Sod/Tazobactam (Sod 2.25 gm/ Dextrose) 50 mls @ 100 mls/hr IV Q6H [facility]; Protocol Last Infusion: 02/11/22 06:41 Dose: Infused Lactulose (Lactulose 20 Gm/30 Ml Oral.Linh) 20 gm PO DAILYP PRN PRN Reason: Constipation Metoclopramide HCl (Metoclopramide 10 Mg/2 Ml Vial) 10 mg IV Q6HP PRN PRN Reason: Nausea And Vomiting Last Admin: 02/10/22 21:52 Dose: 10 mg Ondansetron HCl (Ondansetron 4 Mg/2 Ml Vial) 4 mg IV Q4HP PRN PRN Reason: Nausea And Vomiting Last Admin: 02/11/22 02:08 Dose: 4 mg Polyethylene Glycol (Polyethylene Glycol 3350 17 Gm Packet) 17 gm PO DAILYP PRN PRN Reason: Constipation Potassium Chloride (Potassium Chloride 20 Meq Tablet) 40 meq PO UD PRN PRN Reason: Potssium is 3-3.5 Potassium Chloride (Potassium Chloride 20 Meq Tablet) 40 meq PO UD PRN PRN Reason: Potassium < 3 Senna (Sennosides 1 Tablet) 2 tab PO DAILYP PRN PRN Reason: Constipation Last Admin: 02/10/22 21:52 Dose: 2 tab Sodium Chloride (0.9 % Sodium Chloride 10 Ml Syringe) 10 ml IV Q8 EDIE Last Admin: 02/11/22 05:55 Dose: 10 ml Warfarin Sodium (Warfarin Per Pharmacy) 1 order PO UD EDIE A/P Narrative A/P Narrative: A: *b/l LE cellulitis R>L (h/o proteus/enterococcus/pseudomonas wound cx's): -no abscess/fasciitis/osteo on imaging *CKD IV: Follows with Dr. Smith *Anemia, chronic: *h/o CHF: on ARB/BB/Torsemide *h/o PAFib w/PPM: on BB/Warfarin *Hypothyroidism: *HTN/HLD: *Obesity: BMI 31 P: -IV abx -pending BC/WC, MRSA screen neg -Dr. Berrios for wound care -Continue home BB/ARB/Imdur/torsemide -Home medication reconciliation -PT/OT -CM for placement needs -ppx: Warfarin per pharmacy DNR Time Spent With Patient Time: Total time spent is greater than 50% in coordination of care (as documented) at patient's floor/unit and/or counseling patient: Total time spent with greater than 50% in coordination of care (as documented) at patient's floor/unit and/or counseling patient:: 25 - 35 minutes QUALITY Stroke Symptom Onset Unknown: No VTE Deep Vein Thrombosis/Pulmonary Embolism Present on Admission: No
[2022-02-11] MEDS: DOCUSATE SODIUM 100 MG CAPSULE PO SCH ×2 (08:26→20:29)
[2022-02-11] MEDS ORDERED: METOPROLOL SUCCINATE 50 MG TAB.XL.24H PO SCH (09:00)
--- NOTE | 2022-02-11 12:20 | General Surgery Consult Note ---
HPI Date of Consult Consult Date: 02/11/22 Requesting physician: Gera Poon Primary Care Provider: Susan Abad Consult Narrative Chief complaint: Bilateral lower lleg cellulitis Reason for consult: Wound care / management. History of present illness: Established patient at wound care clinic. Admitted via ER overnite for change in conation, cc:: CC: Gera Poon Constitutional Constitutional: Present as per HPI and other (Occasional chills and increased odorous draiange from leg wounds) Integumentary Integumentary: Present wounds Additional comments: Bilateral chronic lower leg wounds / venous leg ulcers with cellulitis and in creased drainage. Endocrine Endocrine: Present other Additional comments: Secondary hyperparathyroidism. PFSH PFSH All Active Problems Cellulitis (Acute) Cardiac pacemaker in situ (Chronic) Restrictive lung disease (Chronic) Varicose veins of lower extremities (Chronic) Chronic venous insufficiency (Chronic) Atrophic vaginitis (Chronic) Impaired fasting glucose (Chronic) Malaise and fatigue (Chronic) IBS (irritable bowel syndrome) (Chronic) Intrinsic asthma (Chronic) Hypertension, essential (Chronic) CKD (chronic kidney disease), stage III (Chronic) Cardiomyopathy, hypertensive (Chronic) Hyperlipidemia (Chronic) GERD (gastroesophageal reflux disease) (Chronic) Hypothyroidism (Chronic) Gout (Chronic) Morbid obesity (Chronic) Allergic rhinitis (Chronic) Gastric ulcer (Chronic ~2009) History of esophagogastroduodenoscopy (Chronic) Hiatal hernia (Chronic) History of colonoscopy (Chronic) Sigmoid diverticulosis (Chronic) Diverticulitis (Chronic) PVC (premature ventricular contraction) (Chronic) Skin ulcer (Chronic) Chronic rhinitis (Chronic) History of appendectomy (Chronic) History of hysterectomy (Chronic) Hx of BSO (bilateral salpingo-oophorectomy) (Chronic) S/P removal of thyroid nodule (Chronic) History of breast biopsy (Chronic) History of open reduction and internal fixation (ORIF) procedure (Chronic) History of knee replacement (Chronic) History of varicose vein stripping (Chronic) History of cardiac cath (Chronic) Hypertensive renal disease (Chronic) 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, 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) Secondary hyperparathyroidism of renal origin (Chronic) Sebaceous cyst (Chronic) Cellulitis of left leg (Chronic) Paroxysmal atrial fibrillation (Chronic) Venous insufficiency (Chronic) Right leg swelling (Chronic) Pansinusitis (Chronic) Familial hypercholesterolemia (Chronic) Abnormal fasting glucose (Chronic) Hair loss (Chronic) Soft tissue mass (Chronic) Neck pain (Chronic) Back pain, thoracic (Chronic) Lumbar radiculitis (Chronic) Closed head injury (Chronic) Osteoarthrosis-multiple sites (Chronic) Fibromyalgia (Chronic) Diarrhea (Chronic) Duodenitis without hemorrhage (Chronic) Redness (Chronic) Hemorrhoid (Chronic) Poor circulation (Chronic) Lymphedema of lower extremity (Acute) Stasis edema with ulcer and inflammation (Acute) Superficial incisional infection of surgical site (Acute) No-show for appointment (Acute) Medical History Abnormal fasting glucose Allergic rhinitis Atrophic vaginitis Back pain, thoracic 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, 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 BNP elevated, on B-blockers, loop diuretic and ARB Weigh 190's seems good (down from 204) Cardiac pacemaker in situ 2007 - Replaced 2013 - Biventricular ICD pulse generator with defibrillator Cardiomyopathy, hypertensive Cellulitis of left leg Chronic rhinitis Chronic venous insufficiency CKD (chronic kidney disease), stage III Stable CKD 3-4 with bland U/A Controlled HTN, systolic CHF and vascular disease likely etiology Closed head injury Diarrhea Diverticulitis 2008, 2010 Duodenitis without hemorrhage Familial hypercholesterolemia Fibromyalgia Gastric ulcer (~2009) GERD (gastroesophageal reflux disease) Gout Hair loss Hemorrhoid Internal, External Hiatal hernia Hyperlipidemia Hypertension, essential Hypertensive renal disease Hypothyroidism IBS (irritable bowel syndrome) Impaired fasting glucose Intrinsic asthma Lumbar radiculitis Malaise and fatigue Morbid obesity Neck pain Osteoarthrosis-multiple sites Pansinusitis Paroxysmal atrial fibrillation Poor circulation PVC (premature ventricular contraction) Redness Restrictive lung disease Right leg swelling Sebaceous cyst Secondary hyperparathyroidism of renal origin Low dose, calcitriol qOD Sigmoid diverticulosis 2010 Skin ulcer Both Legs Soft tissue mass Left thigh Varicose veins of lower extremities Venous insufficiency Surgical History History of appendectomy History of breast biopsy History of cardiac cath 2006 - Left History of colonoscopy History of esophagogastroduodenoscopy History of hysterectomy History of knee replacement Bilateral History of open reduction and internal fixation (ORIF) procedure Left Femur History of pacemaker (~2007) Replaced 2014 History of toe surgery Left great toenail medial slantback History of varicose vein stripping bilateral legs, left-2015 Hx of BSO (bilateral salpingo-oophorectomy) 1968 - For bleeding S/P removal of thyroid nodule Family History Mother Cardiac disease Essential hypertension HTN (hypertension) ASCVD (arteriosclerotic cardiovascular disease) Father Cardiac disease ASCVD (arteriosclerotic cardiovascular disease) Brother Cardiac disease Myocardial infarct Daughter Depression Social History household members: significant other marital status: occupational status: retired occupation: Resident Hall Director physical activity: none smoking status: Never smoker alcohol intake frequency: does not drink substance use type: does not use MEDS/ALLERGIES Home Medications and Allergies Home Medications Medication Instructions Recorded Confirmed Type allopurinol 300 mg tablet 300 mg PO QDAY 01/09/15 01/17/22 History carvedilol 25 mg tablet 12.5 mg PO BID 01/09/15 01/17/22 History pravastatin 40 mg tablet 40 mg PO QDAY 01/09/15 01/17/22 History potassium chloride 20 mEq 20 meq PO QDAY 90 days #90 tabs 03/01/18 01/17/22 History tablet,extended release(part/cryst) levothyroxine 100 mcg tablet 100 mcg PO .COMPLEX 30 days 02/20/19 01/17/22 History acetaminophen 325 mg capsule 325 mg PO ONCE PRN 10/06/20 10/18/21 History albuterol sulfate 90 mcg/actuation 2 puff inhalation Q4H PRN 10/06/20 01/17/22 History aerosol inhaler isosorbide mononitrate 60 mg 60 mg PO QDAY 10/06/20 01/17/22 History tablet,extended release 24 hr losartan 25 mg tablet 25 mg PO 10/06/20 01/17/22 History warfarin 2.5 mg tablet 2.5 mg PO 10/06/20 01/17/22 History Lactobacillus acidophilus 1 tab PO QDAY 12/14/20 10/18/21 History [Probiotic Acidophilus] calcium carbonate [Antacid 1 tab PO QDAY 12/14/20 01/17/22 History (calcium carbonate)] calcitriol 0.25 mcg capsule 0.25 mcg PO Q OTHER DAY #15 caps 07/13/21 01/17/22 Rx acetaminophen 300 mg-codeine 30 mg 1 tab PO Q6H PRN 01/17/22 01/17/22 History tablet gabapentin 100 mg capsule 0 mg PO 01/17/22 01/17/22 History metoprolol succinate 50 mg 50 mg PO QDAY 01/17/22 01/17/22 History tablet,extended release 24 hr torsemide 20 mg tablet 20 mg PO BID CHF #180 tabs 01/20/22 Rx Allergies Allergy/AdvReac Type Severity Reaction Status Date / Time LIDYA Inhibitors Allergy Unknown Unknown Verified 02/10/22 09:50 NSAIDS (Non-Steroidal Allergy Unknown Unknown Verified 02/10/22 17:31 Anti-Inflamma pantoprazole [From Protonix] Allergy Unknown Unknown Verified 02/10/22 09:50 Sulfa (Sulfonamide Allergy Unknown Unknown Verified 02/10/22 17:31 Antibiotics) tramadol Allergy Unknown Unknown Verified 02/10/22 09:50 morphine AdvReac Mild Nausea Verified 02/10/22 17:31 paregoric AdvReac Mild Nausea Verified 02/10/22 17:31 Physical Examination Vital Signs Vital signs: Temp Pulse Resp BP Pulse Ox O2 Del Method 97.9 F 90 20 116/63 93 02/11/22 11:37 02/11/22 11:37 02/11/22 11:37 02/11/22 11:37 02/11/22 11:37 02/11/22 11:37 General physical appearance General physical exam: well developed, well nourished, no distress and chronical ly ill Eyes Eye exam: PERRL ENT ENT exam: normal pinna, normal mucosa and no congestion Head Head exam IM: Present atraumatic and normocephalic Neck Neck exam: no masses, trachea midline and no venous distension Cardiovascular Cardiovascular exam IM: Present irregular rhythm Peripheral pulses: 2+: dorsalis pedis (L) and dorsalis pedis (R) Respiratory Respiratory exam: normal respiratory effort and clear to auscultation Abdomen Abdomen: Present soft, non tender and bowel sounds Integumentary Integumentary: Present other (Crhonic venous leg ulcers Stage 2 and 3 BOTH lower legs. Lymphedema Cellulitis.Lymphatic serous draiange form wounds with odor. ) Neurologic Neurologic: Present normal coordination and other (No gross neurological or lateralizing signs.) Results Labs Result diagrams: 02/11/22 05:10 02/11/22 05:09 Labs: Abnormal lab results 02/10/22 02/10/22 02/11/22 Range/Units 10:05 17:50 05:09 RBC (3.59-5.38) M/mcL Hgb (11.2-15.7) g/dL Hct (34.1-44.9) % MCHC (31.0-36.0) g/dL RDW (11.5-14.5) % Lymphocytes % (15-49) % Eosinophils % (Manual) (0-7) % RBC Morphology (Normal) Anisocytosis (None Seen) Ovalocytes (None Seen) PT (11.9-14.5) sec INR (0.9-1.1) Carbon Dioxide 20 L (22-30) mmol/L BUN 35 H (8-23) mg/dL Creatinine 1.4 H (0.6-1.1) mg/dL Glucose 109 H (70-105) mg/dL Calcium 8.1 L (8.6-10.4) mg/dL Phosphorus 2.4 L (2.5-4.5) mg/dL Direct Bilirubin 0.5 H (<0.3) mg/dL GGT 63 H (5-36) U/L Alkaline Phosphatase 162 H (39-117) U/L Lactate Dehydrogenase 121 L (135-225) U/L C-Reactive Protein 8.50 H (0.03-0.80) mg/dL Total Protein 5.7 L (5.9-8.4) gm/dL Albumin 3.0 L (3.2-5.2) gm/dL Urine Appearance Cloudy A (Clear) Ur Leukocyte Esterase 500 A (Negative) /uL Urine RBC 4 H (0-3) /hpf Urine WBC 22 H (0-4) /hpf Ur Squamous Epith Cells 24 H (0-4) /hpf 02/11/22 02/11/22 Range/Units 05:10 05:10 RBC 2.98 L (3.59-5.38) M/mcL Hgb 8.8 L (11.2-15.7) g/dL Hct 29.3 L (34.1-44.9) % MCHC 30.0 L (31.0-36.0) g/dL RDW 16.1 H (11.5-14.5) % Lymphocytes % 6 L (15-49) % Eosinophils % (Manual) 8 H (0-7) % RBC Morphology Abnormal A (Normal) Anisocytosis 1+ A (None Seen) Ovalocytes Few A (None Seen) PT 33.5 H (11.9-14.5) sec INR 3.2 H (0.9-1.1) Carbon Dioxide (22-30) mmol/L BUN (8-23) mg/dL Creatinine (0.6-1.1) mg/dL Glucose (70-105) mg/dL Calcium (8.6-10.4) mg/dL Phosphorus (2.5-4.5) mg/dL Direct Bilirubin (<0.3) mg/dL GGT (5-36) U/L Alkaline Phosphatase (39-117) U/L Lactate Dehydrogenase (135-225) U/L C-Reactive Protein (0.03-0.80) mg/dL Total Protein (5.9-8.4) gm/dL Albumin (3.2-5.2) gm/dL Urine Appearance (Clear) Ur Leukocyte Esterase (Negative) /uL Urine RBC (0-3) /hpf Urine WBC (0-4) /hpf Ur Squamous Epith Cells (0-4) /hpf Diabetes panel 02/11/22 Range/Units 05:09 Sodium 140 (133-145) mmol/L Potassium 4.4 (3.3-5.1) mmol/L Chloride 106 (96-108) mmol/L Carbon Dioxide 20 L (22-30) mmol/L BUN 35 H (8-23) mg/dL Creatinine 1.4 H (0.6-1.1) mg/dL Glucose 109 H (70-105) mg/dL Calcium 8.1 L (8.6-10.4) mg/dL AST 13 (<32) U/L ALT < 5 (<40) U/L Alkaline Phosphatase 162 H (39-117) U/L Total Protein 5.7 L (5.9-8.4) gm/dL Albumin 3.0 L (3.2-5.2) gm/dL Triglycerides 80 (<150) mg/dL Calcium panel 02/11/22 Range/Units 05:09 Calcium 8.1 L (8.6-10.4) mg/dL Phosphorus 2.4 L (2.5-4.5) mg/dL Albumin 3.0 L (3.2-5.2) gm/dL Pituitary panel 02/11/22 Range/Units 05:09 Sodium 140 (133-145) mmol/L Potassium 4.4 (3.3-5.1) mmol/L Chloride 106 (96-108) mmol/L Carbon Dioxide 20 L (22-30) mmol/L BUN 35 H (8-23) mg/dL Creatinine 1.4 H (0.6-1.1) mg/dL Glucose 109 H (70-105) mg/dL Calcium 8.1 L (8.6-10.4) mg/dL Adrenal panel 02/11/22 Range/Units 05:09 Sodium 140 (133-145) mmol/L Potassium 4.4 (3.3-5.1) mmol/L Chloride 106 (96-108) mmol/L Carbon Dioxide 20 L (22-30) mmol/L BUN 35 H (8-23) mg/dL Creatinine 1.4 H (0.6-1.1) mg/dL Glucose 109 H (70-105) mg/dL Calcium 8.1 L (8.6-10.4) mg/dL Total Bilirubin 0.7 (0.1-1.0) mg/dL AST 13 (<32) U/L ALT < 5 (<40) U/L Alkaline Phosphatase 162 H (39-117) U/L Total Protein 5.7 L (5.9-8.4) gm/dL Albumin 3.0 L (3.2-5.2) gm/dL All other labs normal. A/P Narrative A/P Narrative: Assessment: Bilateral lower leg venous leg ulcers Cellulitis (Lymphorrhea) Lymphedema of both lower legs. Comorbidities: Anemia HTN CHF CKD Secondary hyperparathyroidism. Hypothyroid Obesity Plan of Treatment: plan: Local wound care Daily MIST treatment IV antibiotics per Dr. Poon Await wound cultures. Will review wounds again with [place] (patient's daughter) Tomorrow Monday around 10:00 Hrs. Time Spent With Patient Time: Total time spent is greater than 50% in coordination of care (as documented) at patient's floor/unit and/or counseling patient:
[2022-02-11] MEDS: HYDROmorphone 0.5 MG/0.5 ML SYRINGE IV PRN ×2 (12:25→23:55)
[2022-02-11] MEDS: MELATONIN 3 MG TABLET PO SCH (20:29)
[2022-02-12] MEDS: PIPERACILLIN SODIUM/TAZOBACTAM 2.25 GM in DEXTROSE 5% IN WATER 50 ML IV SCH ×4 (05:45→23:54)
[2022-02-12] MEDS: 0.9 % SODIUM CHLORIDE 10 ML SYRINGE IV SCH ×5 (05:46→20:35)
[2022-02-12] MEDS: HYDROcodone/APAP 5/325MG TABLET PO PRN ×3 (06:50→17:17)
[2022-02-12 06:51] LABS: Basophils # (Auto) 0.06 K/mcL (0.00-0.30); Basophils % (Auto) 0.6 % (0.0-2.0); Eosinophils % (Auto) 9.3 % (0.0-7.0); Hematocrit 29.7 % (34.1-44.9); Lymphocytes # (Auto) 0.72 K/mcL (1.50-4.80); Lymphocytes % (Auto) 7.5 % (15.5-49.0); Mean Corpuscular HGB Conc 30.3 g/dL (31.0-36.0); Mean Platelet Volume 10.2 fL (8.8-12.5); Monocytes # (Auto) 0.93 K/mcL (0.10-0.90); Monocytes % (Auto) 9.6 % (1.0-12.0); Neutrophils % (Auto) 72.5 % (38.0-78.0); Platelet Count 180 K/mcL (140-440); Red Cell Distribution Width 16.4 % (11.5-14.5); WBC 9.6 K/mcL (4.5-11.0)
[2022-02-12 06:56] LABS: INR 3.6 (0.9-1.1); Prothrombin Time 37.3 sec (11.9-14.5)
[2022-02-12 07:08] LABS: ALT/SGPT < 5 U/L (<40); AST/SGOT 15 U/L (<32); Albumin 2.9 gm/dL (3.2-5.2); Alkaline Phosphatase 165 U/L (39-117); Bilirubin,Direct 0.5 mg/dL (<0.3); Bilirubin,Total 0.6 mg/dL (0.1-1.0); Blood Urea Nitrogen 36 mg/dL (8-23); Calcium 8.9 mg/dL (8.6-10.4); Carbon Dioxide 22 mmol/L (22-30); Chloride 106 mmol/L (96-108); Globulin 2.9 gm/dL (2.2-3.7); Glomerular Filtration Rate 32; Glucose 123 mg/dL (70-105); Lactate Dehydrogenase 123 U/L (135-225); Phosphorous 2.7 mg/dL (2.5-4.5); Triglycerides 76 mg/dL (<150); Uric Acid 4.7 mg/dL (2.5-8.0)
[2022-02-12] MEDS ORDERED: ACETAMINOPHEN W/CODEINE #3 1 TABLET PO PRN (07:57)
--- NOTE | 2022-02-12 07:59 | Internal Med Progress Note ---
SUBJECTIVE Subjective Patient information: Note initiated : 02/12/22 at 7:55 am Service Date, if different from initiated Date: [] Patient: Courtney Reid a 81 y/o F admitted on 02/10/22 for Lower Leg Infection. Chief Complaint: [] Interval history: History of present illness: Ms. Reid is a 81 year old F With history of bilateral lower extremity wounds for several months has been following with Dr. Berrios. Sent from Dr. Berrios office due to concerns of sepsis with cellulitis of the wounds which are draining and painful and red and warm. Patient states over the past week her legs have become increasingly tender. She states are always erythematous and started felt that is different but they are definitely more painful and she is also had more swelling past couple days. She denies fevers or chills. In the ED she was evaluated she had vital stable signs and a normal temperature. Her CRP was elevated 8.5. She admits to feeling constipated from pain medications. 02/11 Patient says she is a little uncomfortable and had poor sleep. Other than that it was some reported chills she denies any other complaints. Awaiting cultures. Anemia present. Awaiting Dr. Berrios's evaluation and wound care. 02/12 Patient does not seem to be quite as uncomfortable today. She says she was constipated had a large bowel movements and feels somewhat better from that standpoint although she says she has also little residual abdominal discomfort from it. Wound culture pending. Follow-up CRP. Continue wound care. Review of Systems: denies headache/fever/chills/nausea/vomiting/chest or abdominal pain/cough/dyspnea/diarrhea. Otherwise see above. Constitutional Vitals: Vital Signs Temp Pulse Resp BP Pulse Ox O2 Del Method 97.8 F 91 H 20 121/66 98 02/12/22 06:52 02/12/22 06:52 02/12/22 06:52 02/12/22 06:52 02/12/22 06:52 02/12/22 06:52 Period Temp Pulse Resp BP Sys/Landry Pulse Ox O2 Del Method O2 Flow Rate Last 24 Hr 97.1 F-98.4 F 88-93 - 104-122/55-67 93-98 Room Air-Room Air Intake and Output 02/11/22 02/12/22 02/12/22 21:59 05:59 13:59 Intake Total 50 450 50 Output Total 51 245 Balance -1 205 50 Weight 82.781 kg Intake & Output: Intake & Output 02/11/22 02/12/22 02/12/22 21:59 05:59 13:59 Intake Total 50 450 50 Output Total 51 245 Balance -1 205 50 Weight 82.781 kg Intake: IV 50 50 50 Zosyn 2.25 gm In Dextrose 5% in 50 50 50 Water 50 ml @ 100 mls/hr IV Q6H [facility] Rx#:[id number] Oral 400 Output: Void Amount 51 245 Other: Urine Appearance Clear Clear Clear Urine Color Dark Yellow Dark Yellow Yellow Urine Odor Normal Strong Stool Size Small Small Stool Color Brown Brown Stool Consistency Dry and Hard Formed Formed # Voids 1 # Bowel Movements 1 1 # of times incontinent of 1 Bowels Exam: General: Alert, Awake, No acute Distress, obese Eyes/N/T: EOMI, Head/Neck: neck supple, CV: RRR with occ irreg, 3/6SM Pulm: Clear b/l, no wheezing/rhonchi/rales Abd: soft, nontender, +BS x4 Ext: no clubbing/cyanosis, b/l LE's in dressings - edema/erythema/TTP/warmth/drainage Neuro: Alert, no focal deficits, moves all extremities Skin: warm/dry OBJ DATA Labs CBC & Chem 7: 02/12/22 05:12 02/12/22 05:12 Labs: Abnormal Lab Results 02/12/22 02/12/22 02/12/22 05:12 05:12 05:12 RBC 3.00 L Hgb 9.0 L Hct 29.7 L POC Hct MCHC 30.3 L RDW 16.4 H Immature Gran % (Auto) Lymph % (Auto) 7.5 L Eos % (Auto) 9.3 H Lymph # (Auto) 0.72 L Bullock # (Auto) 0.93 H Eos # (Auto) 0.90 H Lymphocytes % Eosinophils % (Manual) RBC Morphology Anisocytosis Ovalocytes PT 37.3 H INR 3.6 H VBG Lactic Acid Carbon Dioxide POC Total CO2 POC BUN BUN 36 H Creatinine 1.5 H POC Creatinine Glucose 123 H POC Glucose Calcium Phosphorus Direct Bilirubin 0.5 H GGT 66 H Alkaline Phosphatase 165 H Lactate Dehydrogenase 123 L C-Reactive Protein 11.30 H Total Protein 5.8 L Albumin 2.9 L Procalcitonin Urine Appearance Urine Protein Ur Leukocyte Esterase Urine RBC Urine WBC Ur Squamous Epith Cells Urine Bacteria Hyaline Casts Urine Mucus 02/11/22 02/11/22 02/11/22 05:10 05:10 05:09 RBC 2.98 L Hgb 8.8 L Hct 29.3 L POC Hct MCHC 30.0 L RDW 16.1 H Immature Gran % (Auto) Lymph % (Auto) Eos % (Auto) Lymph # (Auto) Bullock # (Auto) Eos # (Auto) Lymphocytes % 6 L Eosinophils % (Manual) 8 H RBC Morphology Abnormal A Anisocytosis 1+ A Ovalocytes Few A PT 33.5 H INR 3.2 H VBG Lactic Acid Carbon Dioxide 20 L POC Total CO2 POC BUN BUN 35 H Creatinine 1.4 H POC Creatinine Glucose 109 H POC Glucose Calcium 8.1 L Phosphorus 2.4 L Direct Bilirubin 0.5 H GGT 63 H Alkaline Phosphatase 162 H Lactate Dehydrogenase 121 L C-Reactive Protein Total Protein 5.7 L Albumin 3.0 L Procalcitonin Urine Appearance Urine Protein Ur Leukocyte Esterase Urine RBC Urine WBC Ur Squamous Epith Cells Urine Bacteria Hyaline Casts Urine Mucus 02/10/22 02/10/22 02/10/22 17:50 10:26 10:10 RBC Hgb Hct POC Hct 31.0 L MCHC RDW Immature Gran % (Auto) Lymph % (Auto) Eos % (Auto) Lymph # (Auto) Bullock # (Auto) Eos # (Auto) Lymphocytes % Eosinophils % (Manual) RBC Morphology Anisocytosis Ovalocytes PT INR VBG Lactic Acid Carbon Dioxide POC Total CO2 21.0 L POC BUN 51 H BUN Creatinine POC Creatinine 1.7 H Glucose POC Glucose 133 H Calcium Phosphorus Direct Bilirubin GGT Alkaline Phosphatase Lactate Dehydrogenase C-Reactive Protein Total Protein Albumin Procalcitonin Urine Appearance Cloudy A Cloudy A Urine Protein 30 A Ur Leukocyte Esterase 500 A 250 A Urine RBC 4 H 4 H Urine WBC 22 H 11 H Ur Squamous Epith Cells 24 H 6 H Urine Bacteria Few A Hyaline Casts 9 H Urine Mucus Few A 02/10/22 02/10/22 02/10/22 10:05 10:05 10:05 RBC Hgb Hct POC Hct MCHC RDW Immature Gran % (Auto) Lymph % (Auto) Eos % (Auto) Lymph # (Auto) Bullock # (Auto) Eos # (Auto) Lymphocytes % Eosinophils % (Manual) RBC Morphology Anisocytosis Ovalocytes PT 26.7 H INR 2.4 H VBG Lactic Acid < 0.2 L Carbon Dioxide POC Total CO2 POC BUN BUN Creatinine POC Creatinine Glucose POC Glucose Calcium Phosphorus Direct Bilirubin GGT Alkaline Phosphatase Lactate Dehydrogenase C-Reactive Protein 8.50 H Total Protein Albumin Procalcitonin 0.12 H Urine Appearance Urine Protein Ur Leukocyte Esterase Urine RBC Urine WBC Ur Squamous Epith Cells Urine Bacteria Hyaline Casts Urine Mucus 02/10/22 10:05 RBC 3.19 L Hgb 9.6 L Hct 31.8 L POC Hct MCHC 30.2 L RDW 16.2 H Immature Gran % (Auto) 0.6 H Lymph % (Auto) 6.6 L Eos % (Auto) Lymph # (Auto) 0.56 L Bullock # (Auto) Eos # (Auto) Lymphocytes % Eosinophils % (Manual) RBC Morphology Anisocytosis Ovalocytes PT INR VBG Lactic Acid Carbon Dioxide POC Total CO2 POC BUN BUN Creatinine POC Creatinine Glucose POC Glucose Calcium Phosphorus Direct Bilirubin GGT Alkaline Phosphatase Lactate Dehydrogenase C-Reactive Protein Total Protein Albumin Procalcitonin Urine Appearance Urine Protein Ur Leukocyte Esterase Urine RBC Urine WBC Ur Squamous Epith Cells Urine Bacteria Hyaline Casts Urine Mucus Meds: Medications Acetaminophen (Acetaminophen 325 Mg Tablet) 650 mg PO Q6HP PRN; Protocol PRN Reason: Per Pain Protocol/Fever > 101 Hydrocodone Bitart/Acetaminophen (Hydrocodone/Apap 5/325mg Tablet) 1 tab PO Q4HP PRN PRN Reason: PAIN LEVEL 3-6 Last Admin: 02/12/22 06:50 Dose: 1 tab Albuterol/Ipratropium (Ipratropium/Albuterol 3 Ml Ampul.Neb) 3 ml NEB Q4HP PRN PRN Reason: Shortness Of Breath Docusate Sodium (Docusate Sodium 100 Mg Capsule) 100 mg PO BID EDIE Last Admin: 02/11/22 20:29 Dose: 100 mg Hydromorphone HCl (Hydromorphone 0.5 Mg/0.5 Ml Syringe) 0 mg IV Q2HP PRN PRN Reason: Pain Last Admin: 02/11/22 23:55 Dose: 0.5 mg Potassium Chloride 40 meq/ (Dextrose) 520 mls @ 130 mls/hr IV UD PRN PRN Reason: Potassium < 3 Magnesium Sulfate (Magnesium Sulfate) 2 gm in 50 mls @ 50 mls/hr IV UD PRN PRN Reason: Magnesium </= 1.6 Piperacillin Sod/Tazobactam (Sod 2.25 gm/ Dextrose) 50 mls @ 100 mls/hr IV Q6H EDIE; Protocol Last Infusion: 02/12/22 06:31 Dose: Infused Lactulose (Lactulose 20 Gm/30 Ml Oral.Linh) 20 gm PO DAILYP PRN PRN Reason: Constipation Last Admin: 02/11/22 08:26 Dose: 20 gm Melatonin (Melatonin 3 Mg Tablet) 3 mg PO QHS EDIE Last Admin: 02/11/22 20:29 Dose: 3 mg Metoclopramide HCl (Metoclopramide 10 Mg/2 Ml Vial) 10 mg IV Q6HP PRN PRN Reason: Nausea And Vomiting Last Admin: 02/10/22 21:52 Dose: 10 mg Metoprolol Succinate (Metoprolol Succinate 50 Mg Tab.Xl.24h) 50 mg PO DAILY EDIE Last Admin: 02/11/22 08:26 Dose: 50 mg Ondansetron HCl (Ondansetron 4 Mg/2 Ml Vial) 4 mg IV Q4HP PRN PRN Reason: Nausea And Vomiting Last Admin: 02/11/22 02:08 Dose: 4 mg Polyethylene Glycol (Polyethylene Glycol 3350 17 Gm Packet) 17 gm PO DAILYP PRN PRN Reason: Constipation Potassium Chloride (Potassium Chloride 20 Meq Tablet) 40 meq PO UD PRN PRN Reason: Potssium is 3-3.5 Potassium Chloride (Potassium Chloride 20 Meq Tablet) 40 meq PO UD PRN PRN Reason: Potassium < 3 Senna (Sennosides 1 Tablet) 2 tab PO DAILYP PRN PRN Reason: Constipation Last Admin: 02/10/22 21:52 Dose: 2 tab Sodium Chloride (0.9 % Sodium Chloride 10 Ml Syringe) 10 ml IV Q8 [facility] Last Admin: 02/12/22 05:46 Dose: 10 ml Warfarin Sodium (Warfarin Per Pharmacy) 1 order PO UD EDIE A/P Narrative A/P Narrative: A: *b/l LE cellulitis R>L (h/o proteus/enterococcus/pseudomonas wound cx's) & venous ulcers: -no abscess/fasciitis/osteo on imaging *CKD IV: Follows with Dr. Smith *Anemia, chronic: *h/o CHF: on ARB/BB/Torsemide *h/o PAFib w/PPM: on BB/Warfarin *Hypothyroidism: *HTN/HLD: *Obesity: BMI 31 P: -IV zosyn pending WC -pending BC/WC, MRSA screen neg -Dr. Berrios for wound care -Continue home BB/ARB/Imdur/torsemide -PT/OT -CM for placement needs -ppx: Warfarin per pharmacy DNR Time Spent With Patient Time: Total time spent is greater than 50% in coordination of care (as documented) at patient's floor/unit and/or counseling patient: Total time spent with greater than 50% in coordination of care (as documented) at patient's floor/unit and/or counseling patient:: 25 - 35 minutes QUALITY Stroke Symptom Onset Unknown: No VTE Deep Vein Thrombosis/Pulmonary Embolism Present on Admission: No
[2022-02-12] MEDS ORDERED: CALCIUM CARBONATE 500 MG TAB.CHEW CHEWED PRN ×2 (08:14→15:19)
[2022-02-12] MEDS ORDERED: diphenhydrAMINE 50 MG/ML VIAL IV ONE (08:30)
[2022-02-12] MEDS ORDERED: PRAVASTATIN 40 MG TABLET PO SCH (09:00)
[2022-02-12] MEDS: METOPROLOL SUCCINATE 50 MG TAB.XL.24H PO SCH (09:35)
[2022-02-12] MEDS: CARVEDILOL 12.5 MG TABLET PO SCH ×2 (09:35→16:19)
[2022-02-12] MEDS: ISOSORBIDE MONONITRATE 60 MG TAB.XL.24H PO SCH (09:36)
[2022-02-12] MEDS: TORSEMIDE 20 MG TABLET PO SCH ×2 (09:36→16:18)
[2022-02-12] MEDS: GABAPENTIN 100 MG CAPSULE PO SCH ×2 (09:37→20:34)
[2022-02-12] MEDS: DOCUSATE SODIUM 100 MG CAPSULE PO SCH ×2 (09:38→20:34)
[2022-02-12] MEDS: LOSARTAN 25 MG TABLET PO SCH (09:38)
[2022-02-12] MEDS: ALLOPURINOL 300 MG TABLET PO SCH (09:38)
[2022-02-12] MEDS: SIMVASTATIN 20 MG TABLET PO SCH (09:39)
[2022-02-12] MEDS: LACTOBACILLUS 1 CAPSULE PO SCH (09:39)
--- NOTE | 2022-02-12 10:52 | General Surgery Progress Note ---
SUBJECTIVE Subjective Patient information: Note initiated : 02/12/22 at 10:39 am Service Date, if different from initiated Date: [] Patient: Courtney Reid 81 y/o F admitted on 02/10/22 for Lower Leg Infection. Chief Complaint: [] Additional PMFSH (Level 3 Only): Patient seen along with her daughter Alexandrea. Progress reviewed with Nurse and Dr. Poon. Patient had a large BM, Feels better. C/O Itching and skin rash groins and back. Constitutional Vitals: Vital Signs Temp Pulse Resp BP Pulse Ox O2 Del Method 97.8 F 91 H 20 121/66 98 02/12/22 06:52 02/12/22 06:52 02/12/22 06:52 02/12/22 06:52 02/12/22 06:52 02/12/22 06:52 Period Temp Pulse Resp BP Sys/Landry Pulse Ox O2 Del Method O2 Flow Rate Last 24 Hr 97.4 F-98.4 F 89-93 16-20 106-122/57-67 93-98 Room Air-Room Air Intake and Output 02/11/22 02/12/22 02/12/22 21:59 05:59 13:59 Intake Total 50 450 50 Output Total 51 245 Balance -1 205 50 Weight 182 lb 8 oz Intake & Output: Intake & Output 02/11/22 02/12/22 02/12/22 21:59 05:59 13:59 Intake Total 50 450 50 Output Total 51 245 Balance -1 205 50 Weight 182 lb 8 oz Intake: IV 50 50 50 Zosyn 2.25 gm In Dextrose 5% in 50 50 50 Water 50 ml @ 100 mls/hr IV Q6H [facility] Rx#:[id number] Oral 400 Output: Void Amount 51 245 Other: Meal Breakfast Percent of Meal Consumed 50% Feeding Ability Independent Urine Appearance Clear Clear Clear Urine Color Dark Yellow Dark Yellow Bright Yellow Urine Odor Normal Strong Normal Stool Size Small Small Stool Color Brown Brown Stool Consistency Dry and Hard Formed Formed # Voids 1 # Bowel Movements 1 1 # of times incontinent of 1 Bowels Exam: AVSS. NIKOLAY unremarkable. No distress. CONSUELO like rash groins and back. Drainage from VLU Right lower leg > Left. Toes are PWD. Drainage thru Kerlix bandage RIGHT leg. Labs: Blood c/s negative MRSA nasal swab negative WOUND tissue c/s pending. 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 Consuelo Wound c/s awaited Plan of Treatment: Plan: Continue wound care ? MIST daily INTERDRY in groin skin folds. Change in 3 days DESITIN creme on back daily BID Time Spent With Patient Time: Total time spent is greater than 50% in coordination of care (as documented) at patient's floor/unit and/or counseling patient: Total time spent with greater than 50% in coordination of care (as documented) at patient's floor/unit and/or counseling patient:: 15 - 24 minutes
[2022-02-12] MEDS ORDERED: INTERDRY SCH (11:00)
[2022-02-12] MEDS: ZINC OXIDE TOPICAL SCH ×2 (13:27→20:35)
[2022-02-12] MEDS: HYDROmorphone 0.5 MG/0.5 ML SYRINGE IV PRN (13:27)
[2022-02-12] MEDS: LEVOTHYROXINE 100 MCG TABLET PO SCH (14:40)
[2022-02-12] MEDS: MELATONIN 3 MG TABLET PO SCH (20:34)
[2022-02-13] MEDS: 0.9 % SODIUM CHLORIDE 10 ML SYRINGE IV SCH ×3 (05:39→20:36)
[2022-02-13] MEDS: PIPERACILLIN SODIUM/TAZOBACTAM 2.25 GM in DEXTROSE 5% IN WATER 50 ML IV SCH ×4 (05:39→23:51)
[2022-02-13 06:20] LABS: INR 3.3 (0.9-1.1); Prothrombin Time 34.9 sec (11.9-14.5)
[2022-02-13 06:33] LABS: Blood Urea Nitrogen 42 mg/dL (8-23); Calcium 8.9 mg/dL (8.6-10.4); Carbon Dioxide 23 mmol/L (22-30); Chloride 105 mmol/L (96-108); Glomerular Filtration Rate 29; Glucose 114 mg/dL (70-105)
[2022-02-13] MEDS ORDERED: CARVEDILOL 12.5 MG TABLET PO SCH (08:00)
[2022-02-13] MEDS: ALLOPURINOL 300 MG TABLET PO SCH (08:26)
[2022-02-13] MEDS: GABAPENTIN 100 MG CAPSULE PO SCH ×2 (08:26→20:36)
[2022-02-13] MEDS: SIMVASTATIN 20 MG TABLET PO SCH (08:27)
[2022-02-13] MEDS: DOCUSATE SODIUM 100 MG CAPSULE PO SCH ×3 (08:27→21:00)
[2022-02-13] MEDS: TORSEMIDE 20 MG TABLET PO SCH (08:28)
[2022-02-13] MEDS: LACTOBACILLUS 1 CAPSULE PO SCH (08:28)
[2022-02-13] MEDS: ZINC OXIDE TOPICAL SCH ×2 (08:29→20:38)
--- NOTE | 2022-02-13 09:10 | Internal Med Progress Note ---
SUBJECTIVE Subjective Patient information: Note initiated : 02/13/22 at 9:03 am Service Date, if different from initiated Date: [] Patient: Courtney Reid 81 y/o F admitted on 02/10/22 for Lower Leg Infection. Chief Complaint: [] Interval history: History of present illness: Ms. Reid is a 81 year old F With history of bilateral lower extremity wounds for several months has been following with Dr. Berrios. Sent from Dr. Berrios office due to concerns of sepsis with cellulitis of the wounds which are draining and painful and red and warm. Patient states over the past week her legs have become increasingly tender. She states are always erythematous and started felt that is different but they are definitely more painful and she is also had more swelling past couple days. She denies fevers or chills. In the ED she was evaluated she had vital stable signs and a normal temperature. Her CRP was elevated 8.5. She admits to feeling constipated from pain medications. 02/11 Patient says she is a little uncomfortable and had poor sleep. Other than that it was some reported chills she denies any other complaints. Awaiting cultures. Anemia present. Awaiting Dr. Berrios's evaluation and wound care. 02/12 Patient does not seem to be quite as uncomfortable today. She says she was constipated had a large bowel movements and feels somewhat better from that standpoint although she says she has also little residual abdominal discomfort from it. Wound culture pending. Follow-up CRP. Continue wound care. 02/13 New complaints. Superficial wound cultures grew out Pseudomonas aeruginosa. CRP now improving. BUN/creatinine slightly bumped. We will hold diuretic today and ARB. She is on metoprolol and carvedilol. We will stop carvedilol and continue Toprol for soft blood pressures. Review of Systems: denies headache/fever/chills/nausea/vomiting/chest or abdominal pain/cough/dyspnea/diarrhea. Otherwise see above. Constitutional Vitals: Vital Signs Temp Pulse Resp BP Pulse Ox O2 Del Method 97.7 F 84 20 96/87 97 02/13/22 07:42 02/13/22 07:42 02/13/22 07:42 02/13/22 07:42 02/13/22 07:42 02/13/22 07:42 Period Temp Pulse Resp BP Sys/Landry Pulse Ox O2 Del Method O2 Flow Rate Last 24 Hr 97.5 F-98.3 F 82-92 16-20 89-105/49-87 93-97 Room Air-Room Air Intake and Output 02/12/22 02/13/22 02/13/22 21:59 05:59 13:59 Intake Total 150 250 400 Output Total 270 100 225 Balance -120 150 175 Weight 83.597 kg Intake & Output: Intake & Output 02/12/22 02/13/22 02/13/22 21:59 05:59 13:59 Intake Total 150 250 400 Output Total 270 100 225 Balance -120 150 175 Weight 83.597 kg Intake: Nourishment/Supplement quantity 0 (ml) IV 50 50 50 Zosyn 2.25 gm In Dextrose 5% in 50 50 50 Water 50 ml @ 100 mls/hr IV Q6H [facility] Rx#:[id number] Oral 100 200 GI Tube Flush 350 Output: Void Amount 270 100 225 Other: Meal Dinner Percent of Meal Consumed 25% Feeding Ability Independent Nourishment/Supplement name ensure enlive Urine Appearance Clear Cloudy Sediment Urine Color Dark Yellow Dark Yellow Dark Yellow Urine Odor Normal Strong # Bowel Movements 0 Exam: General: Alert, Awake, No acute Distress, obese Eyes/N/T: EOMI, Head/Neck: neck supple, CV: RRR with occ irreg, 3/6SM Pulm: Clear b/l, no wheezing/rhonchi/rales Abd: soft, nontender, +BS x4 Ext: no clubbing/cyanosis, b/l LE's in dressings Neuro: Alert, no focal deficits, moves all extremities Skin: warm/dry OBJ DATA Labs CBC & Chem 7: 02/12/22 05:12 02/13/22 05:16 Labs: Abnormal Lab Results 02/13/22 02/13/22 02/12/22 05:16 05:16 05:12 RBC Hgb Hct POC Hct MCHC RDW Immature Gran % (Auto) Lymph % (Auto) Eos % (Auto) Lymph # (Auto) Yancey # (Auto) Eos # (Auto) Lymphocytes % Eosinophils % (Manual) RBC Morphology Anisocytosis Ovalocytes PT 34.9 H INR 3.3 H VBG Lactic Acid Carbon Dioxide POC Total CO2 POC BUN BUN 42 H 36 H Creatinine 1.6 H 1.5 H POC Creatinine Glucose 114 H 123 H POC Glucose Calcium Phosphorus Direct Bilirubin 0.5 H GGT 66 H Alkaline Phosphatase 165 H Lactate Dehydrogenase 123 L C-Reactive Protein 7.10 H 11.30 H Total Protein 5.8 L Albumin 2.9 L Procalcitonin Urine Appearance Urine Protein Ur Leukocyte Esterase Urine RBC Urine WBC Ur Squamous Epith Cells Urine Bacteria Hyaline Casts Urine Mucus 02/12/22 02/12/22 02/11/22 05:12 05:12 05:10 RBC 3.00 L Hgb 9.0 L Hct 29.7 L POC Hct MCHC 30.3 L RDW 16.4 H Immature Gran % (Auto) Lymph % (Auto) 7.5 L Eos % (Auto) 9.3 H Lymph # (Auto) 0.72 L Yancey # (Auto) 0.93 H Eos # (Auto) 0.90 H Lymphocytes % Eosinophils % (Manual) RBC Morphology Anisocytosis Ovalocytes PT 37.3 H 33.5 H INR 3.6 H 3.2 H VBG Lactic Acid Carbon Dioxide POC Total CO2 POC BUN BUN Creatinine POC Creatinine Glucose POC Glucose Calcium Phosphorus Direct Bilirubin GGT Alkaline Phosphatase Lactate Dehydrogenase C-Reactive Protein Total Protein Albumin Procalcitonin Urine Appearance Urine Protein Ur Leukocyte Esterase Urine RBC Urine WBC Ur Squamous Epith Cells Urine Bacteria Hyaline Casts Urine Mucus 02/11/22 02/11/22 02/10/22 05:10 05:09 17:50 RBC 2.98 L Hgb 8.8 L Hct 29.3 L POC Hct MCHC 30.0 L RDW 16.1 H Immature Gran % (Auto) Lymph % (Auto) Eos % (Auto) Lymph # (Auto) Yancey # (Auto) Eos # (Auto) Lymphocytes % 6 L Eosinophils % (Manual) 8 H RBC Morphology Abnormal A Anisocytosis 1+ A Ovalocytes Few A PT INR VBG Lactic Acid Carbon Dioxide 20 L POC Total CO2 POC BUN BUN 35 H Creatinine 1.4 H POC Creatinine Glucose 109 H POC Glucose Calcium 8.1 L Phosphorus 2.4 L Direct Bilirubin 0.5 H GGT 63 H Alkaline Phosphatase 162 H Lactate Dehydrogenase 121 L C-Reactive Protein Total Protein 5.7 L Albumin 3.0 L Procalcitonin Urine Appearance Cloudy A Urine Protein Ur Leukocyte Esterase 500 A Urine RBC 4 H Urine WBC 22 H Ur Squamous Epith Cells 24 H Urine Bacteria Hyaline Casts Urine Mucus 02/10/22 02/10/22 02/10/22 10:26 10:10 10:05 RBC Hgb Hct POC Hct 31.0 L MCHC RDW Immature Gran % (Auto) Lymph % (Auto) Eos % (Auto) Lymph # (Auto) Yancey # (Auto) Eos # (Auto) Lymphocytes % Eosinophils % (Manual) RBC Morphology Anisocytosis Ovalocytes PT 26.7 H INR 2.4 H VBG Lactic Acid Carbon Dioxide POC Total CO2 21.0 L POC BUN 51 H BUN Creatinine POC Creatinine 1.7 H Glucose POC Glucose 133 H Calcium Phosphorus Direct Bilirubin GGT Alkaline Phosphatase Lactate Dehydrogenase C-Reactive Protein Total Protein Albumin Procalcitonin Urine Appearance Cloudy A Urine Protein 30 A Ur Leukocyte Esterase 250 A Urine RBC 4 H Urine WBC 11 H Ur Squamous Epith Cells 6 H Urine Bacteria Few A Hyaline Casts 9 H Urine Mucus Few A 02/10/22 02/10/22 02/10/22 10:05 10:05 10:05 RBC 3.19 L Hgb 9.6 L Hct 31.8 L POC Hct MCHC 30.2 L RDW 16.2 H Immature Gran % (Auto) 0.6 H Lymph % (Auto) 6.6 L Eos % (Auto) Lymph # (Auto) 0.56 L Yancey # (Auto) Eos # (Auto) Lymphocytes % Eosinophils % (Manual) RBC Morphology Anisocytosis Ovalocytes PT INR VBG Lactic Acid < 0.2 L Carbon Dioxide POC Total CO2 POC BUN BUN Creatinine POC Creatinine Glucose POC Glucose Calcium Phosphorus Direct Bilirubin GGT Alkaline Phosphatase Lactate Dehydrogenase C-Reactive Protein 8.50 H Total Protein Albumin Procalcitonin 0.12 H Urine Appearance Urine Protein Ur Leukocyte Esterase Urine RBC Urine WBC Ur Squamous Epith Cells Urine Bacteria Hyaline Casts Urine Mucus Meds: Medications Acetaminophen (Acetaminophen 325 Mg Tablet) 650 mg PO Q6HP PRN; Protocol PRN Reason: Per Pain Protocol/Fever > 101 Hydrocodone Bitart/Acetaminophen (Hydrocodone/Apap 5/325mg Tablet) 1 tab PO Q4HP PRN PRN Reason: PAIN LEVEL 3-6 Last Admin: 02/12/22 17:17 Dose: 1 tab Albuterol/Ipratropium (Ipratropium/Albuterol 3 Ml Ampul.Neb) 3 ml NEB Q4HP PRN PRN Reason: Shortness Of Breath Allopurinol (Allopurinol 300 Mg Tablet) 300 mg PO QDAY [facility] Last Admin: 02/13/22 08:26 Dose: 300 mg Calcium Carbonate/Glycine (Calcium Carbonate 500 Mg Tab.Chew) 500 mg CHEWED BAILEY LYP PRN PRN Reason: Acid Reflux Last Admin: 02/12/22 15:19 Dose: 500 mg Carvedilol (Carvedilol 12.5 Mg Tablet) 6.25 mg PO BIDCC [facility] Last Admin: 02/13/22 08:27 Dose: 6.25 mg Docusate Sodium (Docusate Sodium 100 Mg Capsule) 100 mg PO BID [facility] Last Admin: 02/13/22 08:27 Dose: 100 mg Gabapentin (Gabapentin 100 Mg Capsule) 200 mg PO BID [facility] Last Admin: 02/13/22 08:26 Dose: 200 mg Hydromorphone HCl (Hydromorphone 0.5 Mg/0.5 Ml Syringe) 0 mg IV Q2HP PRN PRN Reason: Pain Last Admin: 02/12/22 13:27 Dose: 0.5 mg Potassium Chloride 40 meq/ (Dextrose) 520 mls @ 130 mls/hr IV UD PRN PRN Reason: Potassium < 3 Magnesium Sulfate (Magnesium Sulfate) 2 gm in 50 mls @ 50 mls/hr IV UD PRN PRN Reason: Magnesium </= 1.6 Piperacillin Sod/Tazobactam (Sod 2.25 gm/ Dextrose) 50 mls @ 100 mls/hr IV Q6H [facility]; Protocol Last Infusion: 02/13/22 06:11 Dose: Infused Isosorbide Mononitrate (Isosorbide Mononitrate 60 Mg Tab.Xl.24h) 60 mg PO QDAY [facility] Last Admin: 02/12/22 09:36 Dose: 60 mg Lactobacillus Rhamnosus (Lactobacillus 1 Capsule) 1 cap PO QDAY [facility] Last Admin: 02/13/22 08:28 Dose: 1 cap Lactulose (Lactulose 20 Gm/30 Ml Oral.Linh) 20 gm PO DAILYP PRN PRN Reason: Constipation Last Admin: 02/11/22 08:26 Dose: 20 gm Levothyroxine Sodium (Levothyroxine 100 Mcg Tablet) 100 mcg PO Q48H [facility] Last Admin: 02/12/22 14:40 Dose: Not Given Levothyroxine Sodium (Levothyroxine 75 Mcg Tablet) 75 mcg PO Q48H [facility] Losartan Potassium (Losartan 25 Mg Tablet) 12.5 mg PO DAILY [facility] Last Admin: 02/12/22 09:38 Dose: 12.5 mg Melatonin (Melatonin 3 Mg Tablet) 3 mg PO QHS [facility] Last Admin: 02/12/22 20:34 Dose: 3 mg Metoclopramide HCl (Metoclopramide 10 Mg/2 Ml Vial) 10 mg IV Q6HP PRN PRN Reason: Nausea And Vomiting Last Admin: 02/10/22 21:52 Dose: 10 mg Metoprolol Succinate (Metoprolol Succinate 50 Mg Tab.Xl.24h) 50 mg PO QDAY [facility] Last Admin: 02/12/22 09:35 Dose: 50 mg Ondansetron HCl (Ondansetron 4 Mg/2 Ml Vial) 4 mg IV Q4HP PRN PRN Reason: Nausea And Vomiting Last Admin: 02/11/22 02:08 Dose: 4 mg Polyethylene Glycol (Polyethylene Glycol 3350 17 Gm Packet) 17 gm PO DAILYP PRN PRN Reason: Constipation Potassium Chloride (Potassium Chloride 20 Meq Tablet) 40 meq PO UD PRN PRN Reason: Potssium is 3-3.5 Potassium Chloride (Potassium Chloride 20 Meq Tablet) 40 meq PO UD PRN PRN Reason: Potassium < 3 Senna (Sennosides 1 Tablet) 2 tab PO DAILYP PRN PRN Reason: Constipation Last Admin: 02/10/22 21:52 Dose: 2 tab Simvastatin (Simvastatin 20 Mg Tablet) 20 mg PO DAILY [facility] Last Admin: 02/13/22 08:27 Dose: 20 mg Sodium Chloride (0.9 % Sodium Chloride 10 Ml Syringe) 10 ml IV Q8 [facility] Last Admin: 02/13/22 05:39 Dose: 10 ml Torsemide (Torsemide 20 Mg Tablet) 20 mg PO BIDD [facility] Last Admin: 02/13/22 08:28 Dose: 20 mg Warfarin Sodium (Warfarin Per Pharmacy) 1 order PO UD [facility] Zinc Oxide (Zinc Oxide 60gm Tube) 0 dose TOPICAL BID [facility] Last Admin: 02/13/22 08:29 Dose: 1 dose A/P Narrative A/P Narrative: A: *b/l LE cellulitis R>L (h/o proteus/enterococcus/pseudomonas wound cx's) & venous ulcers: -no abscess/fasciitis/osteo on imaging -superficial WC with Pseuomonas a. -crp improving *CKD IV: Follows with Dr. Smith *Anemia, chronic: *h/o systolic/diastolic CHF and Valvular dz(TR): on ARB/BB/Torsemide *h/o PAFib w/PPM: on BB/Warfarin *Hypothyroidism: *HTN/HLD: *Obesity: BMI 31 P: -IV zosyn to cipro upon d/c, MRSA screen neg -Dr. Berrios for wound care -hold home coreg for soft BP's, cont home Toprol -hold ARB/Torsemide today for soft BP and f/u renal fxn and likely restart in AM -PT/OT -CM for placement needs -ppx: Warfarin per pharmacy DNR Time Spent With Patient Time: Total time spent is greater than 50% in coordination of care (as documented) at patient's floor/unit and/or counseling patient: Total time spent with greater than 50% in coordination of care (as documented) at patient's floor/unit and/or counseling patient:: 25 - 35 minutes QUALITY Stroke Symptom Onset Unknown: No VTE Deep Vein Thrombosis/Pulmonary Embolism Present on Admission: No
[2022-02-13] MEDS: LOSARTAN 25 MG TABLET PO SCH (09:30)
[2022-02-13] MEDS: ISOSORBIDE MONONITRATE 60 MG TAB.XL.24H PO SCH (10:08)
[2022-02-13] MEDS: LEVOTHYROXINE 75 MCG TABLET PO SCH (10:08)
[2022-02-13] MEDS: METOPROLOL SUCCINATE 50 MG TAB.XL.24H PO SCH (10:09)
--- NOTE | 2022-02-13 11:09 | Discharge Summary ---
Discharge Provider Provider IMPORTANT FOLLOW-UP INFORMATION FOR PCP: Patient to Monitor blood pressure twice daily, keep log and bring to PCP and deli clerk. Patient information: Note initiated : 02/13/22 at 11:06 am Service Date, if different from initiated Date: [] Patient: Courtney Reid 81 y/o F admitted on 02/10/22 for Lower Leg Infection. Chief Complaint: [] Date of admission: 02/10/22 15:47 Discharge date: 02/15/22 Primary care physician: Susan Abad Consults: 02/10/22 Consult to Physician [CONS] Stat Comment: Consulting Provider: Gera Poon Reason For Exam: Physician to Consult 02/10/22 16:41 Consult to Physician [CONS] Urgent Comment: Consulting Provider: Norm Berrios Reason For Exam: Physician to Consult COURSE Hospital Course Hospital course: History of present illness: Ms. Reid is a 81 year old F With history of bilateral lower extremity wounds for several months has been following with Dr. Berrios. Sent from Dr. Berrios office due to concerns of sepsis with cellulitis of the wounds which are draining and painful and red and warm. Patient states over the past week her legs have become increasingly tender. She states are always erythematous and started felt that is different but they are definitely more painful and she is also had more swelling past couple days. She denies fevers or chills. In the ED she was evaluated she had vital stable signs and a normal temperature. Her CRP was elevated 8.5. She admits to feeling constipated from pain medications. 02/11 Patient says she is a little uncomfortable and had poor sleep. Other than that it was some reported chills she denies any other complaints. Awaiting cultures. Anemia present. Awaiting Dr. Berrios's evaluation and wound care. 02/12 Patient does not seem to be quite as uncomfortable today. She says she was constipated had a large bowel movements and feels somewhat better from that standpoint although she says she has also little residual abdominal discomfort from it. Wound culture pending. Follow-up CRP. Continue wound care. 02/13 New complaints. Superficial wound cultures grew out Pseudomonas aeruginosa. CRP now improving. BUN/creatinine slightly bumped. We will hold diuretic today and ARB. She is on metoprolol and carvedilol. We will stop carvedilol and continue Toprol for soft blood pressures. 02/14 Patient complains of leg pains. No other new complaints overnight events. Awaiting physical therapy. She will likely need nursing home facility. 02/15 Patient seems a bit more comfortable today. No overnight event or new complaints. Awaiting placement to SNF. Creatinine improved after holding the diuretics for a day. Restart the diuretics tomorrow. A: *b/l LE cellulitis R>L & venous ulcers: -superficial WC withPseudomonas a. *CKD IV: Follows with Dr. Smith *Anemia, chronic: *h/o systolic/diastolic CHF and Valvular dz(TR): on ARB/BB/Torsemide *h/o PAFib w/PPM: on BB/Warfarin *Hypothyroidism: *HTN/HLD: *Obesity: BMI 31 P: -kennedy -Dr. Berrios for wound care -hold home coreg for soft BP's, cont home Toprol Discharge diagnosis: Lower extremity cellulitis with Pseudomonas aeruginsona Secondary discharge diagnosis: Chronic kidney disease stage IV chronic anemia history of systolic diastolic heart failure and valvular disease. Paroxysmal atrial relation hypertension thyroidism hypertension upper lipidemia obesity Time Spent with Patient Time attestation: Total time spent providing and/or coordinating discharge services: Time spent: Greater than 30 minutes EXAM Constitutional Vitals: Temp Pulse Resp BP Pulse Ox O2 Del Method 98.7 F 78 18 110/65 95 02/13/22 11:02 02/13/22 11:02 02/13/22 11:02 02/13/22 11:02 02/13/22 11:02 02/13/22 11:02 Discharge Data Data Completed and Pending Labs on day of discharge: Labs from last 24 hours 02/13/22 02/13/22 05:16 05:16 PT 34.9 H INR 3.3 H Sodium 140 Potassium 4.4 Chloride 105 Carbon Dioxide 23 Anion Gap 12.0 BUN 42 H Creatinine 1.6 H GFR Calculation 29 Glucose 114 H Calcium 8.9 C-Reactive Protein 7.10 H Preliminary micro results at discharge 02/10/22 10:15 Blood Culture - Preliminary Blood 02/10/22 10:10 Blood Culture - Preliminary Blood Discharge Plan Patient/Caregiver Discharge Instructions Activity: increase activity as tolerated Diet: Regular Diet Activity Restrictions/Additional Instructions: Monitor blood pressure twice daily, keep log and bring to PCP and deli clerk. Prescriptions: New ciprofloxacin HCl [Cipro] 500 mg tablet 500 mg PO BID Qty: 10 0RF Continued torsemide 20 mg tablet 20 mg PO BID Qty: 180 3RF Rx Instructions: New dose pravastatin 40 mg tablet 40 mg PO QDAY allopurinol 300 mg tablet 300 mg PO QDAY albuterol sulfate 90 mcg/actuation HFA aerosol inhaler 2 puff INHALATION Q4H PRN (Reason: sob) Rx Instructions: administer with spacer calcium carbonate [Antacid (calcium carbonate)] 1 tab PO QDAY PRN (Reason: Acid Reflux) Lactobacillus acidophilus [Probiotic Acidophilus] 1 tab PO QDAY potassium chloride 20 mEq tablet,ER particles/crystals 20 meq PO QDAY 90 Days Qty: 90 levothyroxine 100 mcg tablet 100 mcg PO .COMPLEX 30 Days Rx Instructions: 100 mcg PO Every other day with 75mg on other days; losartan 25 mg tablet 12.5 mg PO DAILY Label Comments: take 1/2 tablet by mouth twice a day isosorbide mononitrate 60 mg tablet extended release 24 hr 60 mg PO QDAY Label Comments: take 1 tablet by mouth every morning warfarin 2.5 mg tablet 2.5 mg PO DAILY Label Comments: take 2 tablets by mouth once daily EXCEPT 1 TABLET ON MON, MON, AND metoprolol succinate 50 mg tablet extended release 24 hr 50 mg PO QDAY Label Comments: take 1 tablet by mouth twice a day acetaminophen-codeine 300-30 mg tablet 1 tab PO Q6H PRN (Reason: pain) gabapentin 100 mg capsule 200 mg PO BID Discontinued carvedilol 25 mg tablet 12.5 mg PO BID Rx Instructions: administer with food Follow Up Plan Follow up with: Norm Berrios MD [Physician] - Susan Abad ARNP [Primary Care Provider] - Patient Disposition: Xfer SNF Prognosis: Fair Rehab Potential: Fair I certify that the patient requires SNF services: Yes Overall status at discharge: patient is progressing back to baseline Discharge Orders: Discharge Order (Routine); Ordered 02/15/22 Ordered By: Gera Poon [facility] VTE Deep Vein Thrombosis/Pulmonary Embolism Present on Admission: No
[2022-02-13] MEDS: HYDROcodone/APAP 5/325MG TABLET PO PRN ×3 (11:38→20:36)
--- NOTE | 2022-02-13 12:03 | General Surgery Progress Note ---
SUBJECTIVE Subjective Patient information: Note initiated : 02/13/22 at 11:54 am Service Date, if different from initiated Date: [] Patient: Courtney Reid 81 y/o F admitted on 02/10/22 for Lower Leg Infection. Chief Complaint: [] Additional PMFSH (Level 3 Only): Hospitalization Day # 3. Patient seen with Pepper RN Patient had an uneventful night. Continues to be on IV antibiotics and daily MIST treatments. Constitutional Vitals: Vital Signs Temp Pulse Resp BP Pulse Ox O2 Del Method 98.7 F 78 18 110/65 95 02/13/22 11:02 02/13/22 11:02 02/13/22 11:02 02/13/22 11:02 02/13/22 11:02 02/13/22 11:02 Period Temp Pulse Resp BP Sys/Landry Pulse Ox O2 Del Method O2 Flow Rate Last 24 Hr 97.5 F-98.7 F 78-92 16-20 89-110/49-87 93-97 Room Air-Room Air Intake and Output 02/12/22 02/13/22 02/13/22 21:59 05:59 13:59 Intake Total 150 250 850 Output Total 270 100 225 Balance -120 150 625 Weight 184 lb 4.8 oz Intake & Output: Intake & Output 02/12/22 02/13/22 02/13/22 21:59 05:59 13:59 Intake Total 150 250 850 Output Total 270 100 225 Balance -120 150 625 Weight 184 lb 4.8 oz Intake: Nourishment/Supplement quantity 0 (ml) IV 50 50 100 Zosyn 2.25 gm In Dextrose 5% in 50 50 100 Water 50 ml @ 100 mls/hr IV Q6H [facility] Rx#:[id number] Oral 100 200 GI Tube Flush 750 Output: Void Amount 270 100 225 Other: Meal Dinner Breakfast Percent of Meal Consumed 25% 100% Feeding Ability Independent Nourishment/Supplement name ensure enlive Urine Appearance Clear Cloudy Sediment Urine Color Dark Yellow Dark Yellow Yellow Urine Odor Normal Strong Stool Size Small Stool Color Brown Green Stool Consistency Soft Loose # Voids 1 # Bowel Movements 0 1 General appearance: no average body habitus Exam: AVSS, No changes NIKOLAY. Large tortuous varicosities Both LE. Moisture dermatitis and edema of both LE is improving. Labs: Wound / tissue c/s. Pseudomonas. CRP is starting to trend down Creatinine at 1.6 A/P Narrative A/P Narrative: Assessment: Responding to treatment. She is at her baseline. Keen to be discharged home. Plan of Treatment: Plan: Continue present management. Reassess tomorrow (Monday) CM to see patient for d/c planning. Discussed with Dr. Poon. Hospitalist. Time Spent With Patient Time: Total time spent is greater than 50% in coordination of care (as documented) at patient's floor/unit and/or counseling patient: Total time spent with greater than 50% in coordination of care (as documented) at patient's floor/unit and/or counseling patient:: 25 - 35 minutes
[2022-02-13] MEDS: MELATONIN 3 MG TABLET PO SCH (20:36)
[2022-02-14] MEDS: HYDROcodone/APAP 5/325MG TABLET PO PRN ×5 (03:41→22:05)
[2022-02-14] MEDS: PIPERACILLIN SODIUM/TAZOBACTAM 2.25 GM in DEXTROSE 5% IN WATER 50 ML IV SCH ×3 (05:30→17:22)
[2022-02-14] MEDS: 0.9 % SODIUM CHLORIDE 10 ML SYRINGE IV SCH ×3 (05:31→20:55)
[2022-02-14 05:52] LABS: INR 2.6 (0.9-1.1); Prothrombin Time 28.8 sec (11.9-14.5)
[2022-02-14] MEDS: ISOSORBIDE MONONITRATE 60 MG TAB.XL.24H PO SCH (08:29)
[2022-02-14] MEDS: ZINC OXIDE TOPICAL SCH ×2 (08:30→20:55)
[2022-02-14] MEDS: SIMVASTATIN 20 MG TABLET PO SCH (08:30)
[2022-02-14] MEDS: METOPROLOL SUCCINATE 50 MG TAB.XL.24H PO SCH (08:30)
[2022-02-14] MEDS: GABAPENTIN 100 MG CAPSULE PO SCH ×2 (08:30→20:55)
[2022-02-14] MEDS: LACTOBACILLUS 1 CAPSULE PO SCH (08:30)
[2022-02-14] MEDS: LEVOTHYROXINE 100 MCG TABLET PO SCH (08:30)
[2022-02-14] MEDS: DOCUSATE SODIUM 100 MG CAPSULE PO SCH ×2 (08:31→20:55)
[2022-02-14] MEDS: ALLOPURINOL 300 MG TABLET PO SCH (08:32)
--- NOTE | 2022-02-14 09:18 | Internal Med Progress Note ---
SUBJECTIVE Subjective Patient information: Note initiated : 02/14/22 at 9:16 am Service Date, if different from initiated Date: [] Patient: Courtney Reid 81 y/o F admitted on 02/10/22 for Lower Leg Infection. Chief Complaint: [] Interval history: History of present illness: Ms. Reid is a 81 year old F With history of bilateral lower extremity wounds for several months has been following with Dr. Berrios. Sent from Dr. Berrios office due to concerns of sepsis with cellulitis of the wounds which are draining and painful and red and warm. Patient states over the past week her legs have become increasingly tender. She states are always erythematous and started felt that is different but they are definitely more painful and she is also had more swelling past couple days. She denies fevers or chills. In the ED she was evaluated she had vital stable signs and a normal temperature. Her CRP was elevated 8.5. She admits to feeling constipated from pain medications. 02/11 Patient says she is a little uncomfortable and had poor sleep. Other than that it was some reported chills she denies any other complaints. Awaiting cultures. Anemia present. Awaiting Dr. Berrios's evaluation and wound care. 02/12 Patient does not seem to be quite as uncomfortable today. She says she was constipated had a large bowel movements and feels somewhat better from that standpoint although she says she has also little residual abdominal discomfort from it. Wound culture pending. Follow-up CRP. Continue wound care. 02/13 New complaints. Superficial wound cultures grew out Pseudomonas aeruginosa. CRP now improving. BUN/creatinine slightly bumped. We will hold diuretic today and ARB. She is on metoprolol and carvedilol. We will stop carvedilol and continue Toprol for soft blood pressures. 02/14 Patient complains of leg pains. No other new complaints overnight events. Awaiting physical therapy. She will likely need long term facility. Review of Systems: denies headache/fever/chills/nausea/vomiting/chest or abdominal pain/cough/dyspnea/diarrhea. Otherwise see above. Constitutional Vitals: Vital Signs Temp Pulse Resp BP Pulse Ox O2 Del Method 97.4 F 76 16 98/60 97 02/14/22 07:37 02/14/22 07:37 02/14/22 07:37 02/14/22 07:37 02/14/22 07:37 02/14/22 07:37 Period Temp Pulse Resp BP Sys/Landry Pulse Ox O2 Del Method O2 Flow Rate Last 24 Hr 97.3 F-98.7 F 76-84 16-20 91-113/49-67 94-97 Room Air-Room Air Intake and Output 02/13/22 02/14/22 02/14/22 21:59 05:59 13:59 Intake Total 450 170 50 Output Total 601 400 Balance -151 -230 50 Weight 82.696 kg Intake & Output: Intake & Output 02/13/22 02/14/22 02/14/22 21:59 05:59 13:59 Intake Total 450 170 50 Output Total 601 400 Balance -151 -230 50 Weight 82.696 kg Intake: IV 50 50 50 Zosyn 2.25 gm In Dextrose 5% in 50 50 50 Water 50 ml @ 100 mls/hr IV Q6H [facility] Rx#:[id number] Oral 400 120 Output: Void Amount 600 400 Urine/Stool Mix 1 Other: Meal Dinner Breakfast Percent of Meal Consumed 50% 25% 50% Feeding Ability Assist with Tray Set Up Assist with Tray Set Up Urine Appearance Clear Clear Urine Color Yellow Dark Yellow Urine Odor Normal Stool Size Moderate Stool Color Brown Stool Consistency Loose # Voids 1 # Bowel Movements 1 Exam: General: Alert, Awake, No acute Distress, obese Eyes/N/T: EOMI, Head/Neck: neck supple, CV: RRR with occ irreg, 3/6SM Pulm: Clear b/l, no wheezing/rhonchi/rales Abd: soft, nontender, +BS x4 Ext: no clubbing/cyanosis, b/l LE's in dressings Neuro: Alert, no focal deficits, moves all extremities Skin: warm/dry OBJ DATA Labs CBC & Chem 7: 02/12/22 05:12 02/13/22 05:16 Labs: Abnormal Lab Results 02/14/22 02/13/22 02/13/22 04:52 05:16 05:16 RBC Hgb Hct MCHC RDW Lymph % (Auto) Eos % (Auto) Lymph # (Auto) [place] # (Auto) Eos # (Auto) PT 28.8 H 34.9 H INR 2.6 H 3.3 H BUN 42 H Creatinine 1.6 H Glucose 114 H Direct Bilirubin GGT Alkaline Phosphatase Lactate Dehydrogenase C-Reactive Protein 7.10 H Total Protein Albumin 02/12/22 02/12/22 02/12/22 05:12 05:12 05:12 RBC 3.00 L Hgb 9.0 L Hct 29.7 L MCHC 30.3 L RDW 16.4 H Lymph % (Auto) 7.5 L Eos % (Auto) 9.3 H Lymph # (Auto) 0.72 L [place] # (Auto) 0.93 H Eos # (Auto) 0.90 H PT 37.3 H INR 3.6 H BUN 36 H Creatinine 1.5 H Glucose 123 H Direct Bilirubin 0.5 H GGT 66 H Alkaline Phosphatase 165 H Lactate Dehydrogenase 123 L C-Reactive Protein 11.30 H Total Protein 5.8 L Albumin 2.9 L Meds: Medications Acetaminophen (Acetaminophen 325 Mg Tablet) 650 mg PO Q6HP PRN; Protocol PRN Reason: Per Pain Protocol/Fever > 101 Hydrocodone Bitart/Acetaminophen (Hydrocodone/Apap 5/325mg Tablet) 1 tab PO Q4H P PRN PRN Reason: PAIN LEVEL 3-6 Last Admin: 02/14/22 07:30 Dose: 1 tab Albuterol/Ipratropium (Ipratropium/Albuterol 3 Ml Ampul.Neb) 3 ml NEB Q4HP PRN PRN Reason: Shortness Of Breath Allopurinol (Allopurinol 300 Mg Tablet) 300 mg PO QDAY [facility] Last Admin: 02/14/22 08:32 Dose: 300 mg Calcium Carbonate/Glycine (Calcium Carbonate 500 Mg Tab.Chew) 500 mg CHEWED DAILYP PRN PRN Reason: Acid Reflux Last Admin: 02/12/22 15:19 Dose: 500 mg Docusate Sodium (Docusate Sodium 100 Mg Capsule) 100 mg PO BID [facility] Last Admin: 02/14/22 08:31 Dose: Not Given Gabapentin (Gabapentin 100 Mg Capsule) 200 mg PO BID [facility] Last Admin: 02/14/22 08:30 Dose: 200 mg Hydromorphone HCl (Hydromorphone 0.5 Mg/0.5 Ml Syringe) 0 mg IV Q2HP PRN PRN Reason: Pain Last Admin: 02/12/22 13:27 Dose: 0.5 mg Potassium Chloride 40 meq/ (Dextrose) 520 mls @ 130 mls/hr IV UD PRN PRN Reason: Potassium < 3 Magnesium Sulfate (Magnesium Sulfate) 2 gm in 50 mls @ 50 mls/hr IV UD PRN PRN Reason: Magnesium </= 1.6 Piperacillin Sod/Tazobactam (Sod 2.25 gm/ Dextrose) 50 mls @ 100 mls/hr IV Q6H [facility]; Protocol Last Infusion: 02/14/22 06:18 Dose: Infused Isosorbide Mononitrate (Isosorbide Mononitrate 60 Mg Tab.Xl.24h) 60 mg PO QDAY [facility] Last Admin: 02/14/22 08:29 Dose: 60 mg Lactobacillus Rhamnosus (Lactobacillus 1 Capsule) 1 cap PO QDAY [facility] Last Admin: 02/14/22 08:30 Dose: 1 cap Lactulose (Lactulose 20 Gm/30 Ml Oral.Linh) 20 gm PO DAILYP PRN PRN Reason: Constipation Last Admin: 02/11/22 08:26 Dose: 20 gm Levothyroxine Sodium (Levothyroxine 100 Mcg Tablet) 100 mcg PO Q48H [facility] Last Admin: 02/14/22 08:30 Dose: 100 mcg Levothyroxine Sodium (Levothyroxine 75 Mcg Tablet) 75 mcg PO Q48H [facility] Last Admin: 02/13/22 10:08 Dose: 75 mcg Melatonin (Melatonin 3 Mg Tablet) 3 mg PO QHS [facility] Last Admin: 02/13/22 20:36 Dose: 3 mg Metoclopramide HCl (Metoclopramide 10 Mg/2 Ml Vial) 10 mg IV Q6HP PRN PRN Reason: Nausea And Vomiting Last Admin: 02/10/22 21:52 Dose: 10 mg Metoprolol Succinate (Metoprolol Succinate 50 Mg Tab.Xl.24h) 50 mg PO QDAY [facility] Last Admin: 02/14/22 08:30 Dose: 50 mg Ondansetron HCl (Ondansetron 4 Mg/2 Ml Vial) 4 mg IV Q4HP PRN PRN Reason: Nausea And Vomiting Last Admin: 02/11/22 02:08 Dose: 4 mg Polyethylene Glycol (Polyethylene Glycol 3350 17 Gm Packet) 17 gm PO DAILYP PRN PRN Reason: Constipation Potassium Chloride (Potassium Chloride 20 Meq Tablet) 40 meq PO UD PRN PRN Reason: Potssium is 3-3.5 Potassium Chloride (Potassium Chloride 20 Meq Tablet) 40 meq PO UD PRN PRN Reason: Potassium < 3 Senna (Sennosides 1 Tablet) 2 tab PO DAILYP PRN PRN Reason: Constipation Last Admin: 02/10/22 21:52 Dose: 2 tab Simvastatin (Simvastatin 20 Mg Tablet) 20 mg PO DAILY [facility] Last Admin: 02/14/22 08:30 Dose: 20 mg Sodium Chloride (0.9 % Sodium Chloride 10 Ml Syringe) 10 ml IV Q8 [facility] Last Admin: 02/14/22 05:31 Dose: 10 ml Warfarin Sodium (Warfarin Per Pharmacy) 1 order PO UD [facility] Warfarin Sodium (Warfarin 2.5 Mg Tablet) 2.5 mg PO ONCE@1400 ONE Stop: 02/14/22 14:01 Zinc Oxide (Zinc Oxide 60gm Tube) 0 dose TOPICAL BID [facility] Last Admin: 02/14/22 08:30 Dose: 1 dose A/P Narrative A/P Narrative: A: *b/l LE cellulitis R>L (h/o proteus/enterococcus/pseudomonas wound cx's) & venous ulcers: -no abscess/fasciitis/osteo on imaging -superficial WC with Pseudomonas a. -crp improving *CKD IV: Follows with Dr. Smith *Anemia, chronic: *h/o systolic/diastolic CHF and Valvular dz(TR): on ARB/BB/Torsemide *h/o PAFib w/PPM: on BB/Warfarin *Hypothyroidism: *HTN/HLD: *Obesity: BMI 31 P: -IV zosyn to cipro upon d/c, MRSA screen neg -Dr. Berrios for wound care -hold home coreg for soft BP's, cont home Toprol -hold ARB/Torsemide today for soft BP and f/u renal fxn and likely restart in AM -PT/OT -CM for SNF -ppx: Warfarin per pharmacy DNR Time Spent With Patient Time: Total time spent is greater than 50% in coordination of care (as documented) at patient's floor/unit and/or counseling patient: QUALITY Stroke Symptom Onset Unknown: No VTE Deep Vein Thrombosis/Pulmonary Embolism Present on Admission: No
[2022-02-14] MEDS ORDERED: WARFARIN 2.5 MG TABLET PO ONE (14:00)
[2022-02-14] MEDS: HYDROmorphone 0.5 MG/0.5 ML SYRINGE IV PRN (17:22)
[2022-02-14] MEDS: MELATONIN 3 MG TABLET PO SCH (20:55)
[2022-02-15] MEDS: PIPERACILLIN SODIUM/TAZOBACTAM 2.25 GM in DEXTROSE 5% IN WATER 50 ML IV SCH ×2 (00:19→05:57)
[2022-02-15] MEDS: HYDROcodone/APAP 5/325MG TABLET PO PRN ×4 (03:39→23:24)
[2022-02-15] MEDS: 0.9 % SODIUM CHLORIDE 10 ML SYRINGE IV SCH ×3 (05:57→21:00)
[2022-02-15 07:04] LABS: INR 2.5 (0.9-1.1); Prothrombin Time 27.5 sec (11.9-14.5)
[2022-02-15] MEDS: DOCUSATE SODIUM 100 MG CAPSULE PO SCH ×2 (07:18→21:00)
[2022-02-15] MEDS: LEVOTHYROXINE 75 MCG TABLET PO SCH (07:21)
--- NOTE | 2022-02-15 07:42 | Internal Med Progress Note ---
SUBJECTIVE Subjective Patient information: Note initiated : 02/15/22 at 7:40 am Service Date, if different from initiated Date: [] Patient: Courtney Reid a 81 y/o F admitted on 02/10/22 for Lower Leg Infection. Chief Complaint: [] Interval history: History of present illness: Ms. Reid is a 81 year old F With history of bilateral lower extremity wounds for several months has been following with Dr. Berrios. Sent from Dr. Berrios office due to concerns of sepsis with cellulitis of the wounds which are draining and painful and red and warm. Patient states over the past week her legs have become increasingly tender. She states are always erythematous and started felt that is different but they are definitely more painful and she is also had more swelling past couple days. She denies fevers or chills. In the ED she was evaluated she had vital stable signs and a normal temperature. Her CRP was elevated 8.5. She admits to feeling constipated from pain medications. 02/11 Patient says she is a little uncomfortable and had poor sleep. Other than that it was some reported chills she denies any other complaints. Awaiting cultures. Anemia present. Awaiting Dr. Berrios's evaluation and wound care. 02/12 Patient does not seem to be quite as uncomfortable today. She says she was constipated had a large bowel movements and feels somewhat better from that standpoint although she says she has also little residual abdominal discomfort from it. Wound culture pending. Follow-up CRP. Continue wound care. 02/13 New complaints. Superficial wound cultures grew out Pseudomonas aeruginosa. CRP now improving. BUN/creatinine slightly bumped. We will hold diuretic today and ARB. She is on metoprolol and carvedilol. We will stop carvedilol and continue Toprol for soft blood pressures. 02/14 Patient complains of leg pains. No other new complaints overnight events. Awaiting physical therapy. She will likely need jail facility. 02/15 Patient seems a bit more comfortable today. No overnight event or new comp laints. Awaiting placement to SNF. Creatinine improved after holding the diuretics for a day. Restart the diuretics likely tomorrow. Review of Systems: denies headache/fever/chills/nausea/vomiting/chest or abdominal pain/cough/dyspnea/diarrhea. Otherwise see above. Constitutional Vitals: Vital Signs Temp Pulse Resp BP Pulse Ox O2 Del Method 97.4 F 84 18 105/66 95 02/15/22 03:30 02/15/22 03:30 02/15/22 03:30 02/15/22 03:30 02/15/22 03:30 02/15/22 03:30 Period Temp Pulse Resp BP Sys/Landry Pulse Ox O2 Del Method O2 Flow Rate Last 24 Hr 97.3 F-97.9 F 76-84 16-18 104-113/58-66 92-97 Room Air-Room Air Intake and Output 02/14/22 02/15/22 02/15/22 21:59 05:59 13:59 Intake Total 450 50 50 Output Total 200 375 Balance 250 -325 50 Weight 81.102 kg Intake & Output: Intake & Output 02/14/22 02/15/22 02/15/22 21:59 05:59 13:59 Intake Total 450 50 50 Output Total 200 375 Balance 250 -325 50 Weight 81.102 kg Intake: IV 50 50 50 Zosyn 2.25 gm In Dextrose 5% in 50 50 50 Water 50 ml @ 100 mls/hr IV Q6H [facility] Rx#:[id number] Oral 400 0 Output: Void Amount 200 375 Other: Meal Dinner Percent of Meal Consumed 25% Feeding Ability Independent Urine Appearance Clear Clear Urine Color Yellow Yellow Urine Odor Strong Normal Exam: General: Alert, Awake, No acute Distress, obese Eyes/N/T: EOMI, Head/Neck: neck supple, CV: RRR with occ irreg, 3/6SM Pulm: Clear b/l, no wheezing/rhonchi/rales Abd: soft, nontender, +BS x4 Ext: no clubbing/cyanosis, b/l LE's in dressings Neuro: Alert, no focal deficits, moves all extremities Skin: warm/dry OBJ DATA Labs CBC & Chem 7: 02/12/22 05:12 02/15/22 05:13 Labs: Abnormal Lab Results 02/15/22 02/14/22 02/13/22 05:13 04:52 05:16 PT 27.5 H 28.8 H INR 2.5 H 2.6 H BUN 42 H Creatinine 1.6 H Glucose 114 H C-Reactive Protein 7.10 H 02/13/22 05:16 PT 34.9 H INR 3.3 H BUN Creatinine Glucose C-Reactive Protein Meds: Medications Acetaminophen (Acetaminophen 325 Mg Tablet) 650 mg PO Q6HP PRN; Protocol PRN Reason: Per Pain Protocol/Fever > 101 Hydrocodone Bitart/Acetaminophen (Hydrocodone/Apap 5/325mg Tablet) 1 tab PO Q4HP PRN PRN Reason: PAIN LEVEL 3-6 Last Admin: 02/15/22 03:39 Dose: 1 tab Albuterol/Ipratropium (Ipratropium/Albuterol 3 Ml Ampul.Neb) 3 ml NEB Q4HP PRN PRN Reason: Shortness Of Breath Allopurinol (Allopurinol 300 Mg Tablet) 300 mg PO QDAY [facility] Last Admin: 02/14/22 08:32 Dose: 300 mg Calcium Carbonate/Glycine (Calcium Carbonate 500 Mg Tab.Chew) 500 mg CHEWED DAILYP PRN PRN Reason: Acid Reflux Last Admin: 02/12/22 15:19 Dose: 500 mg Docusate Sodium (Docusate Sodium 100 Mg Capsule) 100 mg PO BID [facility] Last Admin: 02/15/22 07:18 Dose: Not Given Gabapentin (Gabapentin 100 Mg Capsule) 200 mg PO BID [facility] Last Admin: 02/14/22 20:55 Dose: 200 mg Hydromorphone HCl (Hydromorphone 0.5 Mg/0.5 Ml Syringe) 0 mg IV Q2HP PRN PRN Reason: Pain Last Admin: 02/14/22 17:22 Dose: 0.5 mg Potassium Chloride 40 meq/ (Dextrose) 520 mls @ 130 mls/hr IV UD PRN PRN Reason: Potassium < 3 Magnesium Sulfate (Magnesium Sulfate) 2 gm in 50 mls @ 50 mls/hr IV UD PRN PRN Reason: Magnesium </= 1.6 Piperacillin Sod/Tazobactam (Sod 2.25 gm/ Dextrose) 50 mls @ 100 mls/hr IV Q6H [facility]; Protocol Last Infusion: 02/15/22 06:32 Dose: Infused Isosorbide Mononitrate (Isosorbide Mononitrate 60 Mg Tab.Xl.24h) 60 mg PO QDAY [facility] Last Admin: 02/14/22 08:29 Dose: 60 mg Lactobacillus Rhamnosus (Lactobacillus 1 Capsule) 1 cap PO QDAY [facility] Last Admin: 02/14/22 08:30 Dose: 1 cap Lactulose (Lactulose 20 Gm/30 Ml Oral.Linh) 20 gm PO DAILYP PRN PRN Reason: Constipation Last Admin: 02/11/22 08:26 Dose: 20 gm Levothyroxine Sodium (Levothyroxine 100 Mcg Tablet) 100 mcg PO Q48H [facility] Last Admin: 02/14/22 08:30 Dose: 100 mcg Levothyroxine Sodium (Levothyroxine 75 Mcg Tablet) 75 mcg PO Q48H [facility] Last Admin: 02/15/22 07:21 Dose: 75 mcg Melatonin (Melatonin 3 Mg Tablet) 3 mg PO QHS [facility] Last Admin: 02/14/22 20:55 Dose: 3 mg Metoclopramide HCl (Metoclopramide 10 Mg/2 Ml Vial) 10 mg IV Q6HP PRN PRN Reason: Nausea And Vomiting Last Admin: 02/10/22 21:52 Dose: 10 mg Metoprolol Succinate (Metoprolol Succinate 50 Mg Tab.Xl.24h) 50 mg PO QDAY [facility] Last Admin: 02/14/22 08:30 Dose: 50 mg Ondansetron HCl (Ondansetron 4 Mg/2 Ml Vial) 4 mg IV Q4HP PRN PRN Reason: Nausea And Vomiting Last Admin: 02/11/22 02:08 Dose: 4 mg Polyethylene Glycol (Polyethylene Glycol 3350 17 Gm Packet) 17 gm PO DAILYP PRN PRN Reason: Constipation Potassium Chloride (Potassium Chloride 20 Meq Tablet) 40 meq PO UD PRN PRN Reason: Potssium is 3-3.5 Potassium Chloride (Potassium Chloride 20 Meq Tablet) 40 meq PO UD PRN PRN Reason: Potassium < 3 Senna (Sennosides 1 Tablet) 2 tab PO DAILYP PRN PRN Reason: Constipation Last Admin: 02/10/22 21:52 Dose: 2 tab Simvastatin (Simvastatin 20 Mg Tablet) 20 mg PO DAILY [facility] Last Admin: 02/14/22 08:30 Dose: 20 mg Sodium Chloride (0.9 % Sodium Chloride 10 Ml Syringe) 10 ml IV Q8 [facility] Last Admin: 02/15/22 05:57 Dose: 10 ml Warfarin Sodium (Warfarin Per Pharmacy) 1 order PO UD [facility] Zinc Oxide (Zinc Oxide 60gm Tube) 0 dose TOPICAL BID [facility] Last Admin: 02/14/22 20:55 Dose: Not Given A/P Narrative A/P Narrative: A: *b/l LE cellulitis R>L (h/o proteus/enterococcus/pseudomonas wound cx's) & venou s ulcers: -no abscess/fasciitis/osteo on imaging -superficial WC with Pseudomonas a. -crp improving *CKD IV: Follows with Dr. Smith *Anemia, chronic: *h/o systolic/diastolic CHF and Valvular dz(TR): on ARB/BB/Torsemide *h/o PAFib w/PPM: on BB/Warfarin *Hypothyroidism: *HTN/HLD: *Obesity: BMI 31 P: -IV zosyn to po cipro, MRSA screen neg -Dr. Berrios for wound care -hold home coreg/ARB for soft BP's, cont home Toprol -restart Torsemide in AM -PT/OT -CM for SNF -ppx: Warfarin per pharmacy DNR Time Spent With Patient Time: Total time spent is greater than 50% in coordination of care (as documented) at patient's floor/unit and/or counseling patient: Total time spent with greater than 50% in coordination of care (as documented) at patient's floor/unit and/or counseling patient:: 25 - 35 minutes QUALITY Stroke Symptom Onset Unknown: No VTE Deep Vein Thrombosis/Pulmonary Embolism Present on Admission: No
[2022-02-15 08:15] LABS: Blood Urea Nitrogen 33 mg/dL (8-23); Calcium 8.2 mg/dL (8.6-10.4); Carbon Dioxide 25 mmol/L (22-30); Chloride 104 mmol/L (96-108); Glomerular Filtration Rate 35; Glucose 105 mg/dL (70-105)
[2022-02-15] MEDS: SIMVASTATIN 20 MG TABLET PO SCH (09:27)
[2022-02-15] MEDS: ALLOPURINOL 300 MG TABLET PO SCH (09:27)
[2022-02-15] MEDS: ISOSORBIDE MONONITRATE 60 MG TAB.XL.24H PO SCH (09:27)
[2022-02-15] MEDS: LACTOBACILLUS 1 CAPSULE PO SCH (09:28)
[2022-02-15] MEDS: GABAPENTIN 100 MG CAPSULE PO SCH ×2 (09:28→21:00)
[2022-02-15] MEDS: METOPROLOL SUCCINATE 50 MG TAB.XL.24H PO SCH (09:28)
[2022-02-15] MEDS: HYDROmorphone 0.5 MG/0.5 ML SYRINGE IV PRN ×2 (11:01→12:53)
[2022-02-15] MEDS: ZINC OXIDE TOPICAL SCH ×2 (11:01→21:00)
[2022-02-15] MEDS: CIPROFLOXACIN 500 MG TABLET PO SCH ×2 (11:02→21:00)
--- NOTE | 2022-02-15 13:07 | General Surgery Progress Note ---
SUBJECTIVE Subjective Patient information: Note initiated : 02/15/22 at 12:56 pm Service Date, if different from initiated Date: [] Patient: Courtney Reid 81 y/o F admitted on 02/10/22 for Lower Leg Infection. Chief Complaint: [] Additional PMFSH (Level 3 Only): Patient seen with Geoff Angel RN Wound care Nurse. Examined leg wounds after patient had completed her Physical Therapy and walking. Constitutional Vitals: Vital Signs Temp Pulse Resp BP Pulse Ox O2 Del Method 96.7 F L 82 20 123/73 97 02/15/22 07:34 02/15/22 07:34 02/15/22 07:34 02/15/22 07:34 02/15/22 07:34 02/15/22 07:44 Period Temp Pulse Resp BP Sys/Landry Pulse Ox O2 Del Method O2 Flow Rate Last 24 Hr 96.7 F-97.9 F 76-84 16-20 104-123/58-73 92-97 Room Air-Room Air Intake and Output 02/14/22 02/15/22 02/15/22 21:59 05:59 13:59 Intake Total 450 50 50 Output Total 200 375 200 Balance 250 -325 -150 Weight 178 lb 12.8 oz 178 lb 12.8 oz Patient Weight 02/16/22 05:59 Weight 178 lb 12.8 oz Intake & Output: Intake & Output 02/14/22 02/15/22 02/15/22 21:59 05:59 13:59 Intake Total 450 50 50 Output Total 200 375 200 Balance 250 -325 -150 Weight 178 lb 12.8 oz 178 lb 12.8 oz Intake: IV 50 50 50 Zosyn 2.25 gm In Dextrose 5% in 50 50 50 Water 50 ml @ 100 mls/hr IV Q6H [facility] Rx#:[id number] Oral 400 0 Output: Void Amount 200 375 200 Other: Meal Dinner Percent of Meal Consumed 25% Feeding Ability Independent Urine Appearance Clear Clear Clear Urine Color Yellow Yellow Dark Yellow Urine Odor Strong Normal Strong Exam: AVSS. No interval changes in NIKOLAY. L/E. RLE. Thick tortuous varicosities up to upper medial thigh. Knee edema around TKR scar. but a stable knee , THICK densely adherent eschar and slough around VLU lower lateral leg. (NEEDS surgical debridement in OR under anesthesia) ?? Versa Jet. LLE: Similar findings but dry VLU site lower lateral leg A/P Narrative A/P Narrative: Assessment: VLU with dense thick eschar RLE > >LLE. Peripheral Venous Hypertension both LE. SSSTI Pseudomonas. Plan of Treatment: Plan: Schedule OR surgical debridement. See Pre Op Orders. Answered all patient's Qs about surgery. Plan reviewed with Dr. Poon and nurse IC. Hold off on D/C at this time. Reassess later after debridement. Time Spent With Patient Time: Total time spent is greater than 50% in coordination of care (as documented) at patient's floor/unit and/or counseling patient: Total time spent with greater than 50% in coordination of care (as documented) at patient's floor/unit and/or counseling patient:: 35 - 50 minutes
[2022-02-15] MEDS ORDERED: WARFARIN 2.5 MG TABLET PO ONE (14:00)
[2022-02-15] MEDS: ONDANSETRON 4 MG/2 ML VIAL IV PRN (17:14)
--- NOTE | 2022-02-15 17:24 | EKG ---
[facility] Test Date: 2022-02-15 Pat Name: Courtney Reid Department: [facility] Room: 128 Gender: Female Construction Engineering Manager: : 1940 Requested By: Norm Berrios Order Number: [id number] Reading MD: Cristopher Marie M.D. Measurements Intervals [place] Rate: 75 P: 64 ME: 192 QRS: 183 QRSD: 141 T: 77 QT: 451 QTc: 504 Interpretive Statements Ventricular-paced rhythm No further analysis attempted due to paced rhythm Electronically Signed On 02-15-2022 17:24:10 PDT by Cristopher Marie M.D. /[id number]
[2022-02-15] MEDS: MELATONIN 3 MG TABLET PO SCH (21:00)
[2022-02-16] MEDS: 0.9 % SODIUM CHLORIDE 10 ML SYRINGE IV SCH ×3 (05:33→20:44)
[2022-02-16] MEDS ORDERED: GENTAMICIN SULFATE IRR SCH (06:00)
[2022-02-16] MEDS ORDERED: SODIUM CHLORIDE IRRIG IRR SCH (06:00)
[2022-02-16] MEDS ORDERED: CLINDAMYCIN IRR SCH (06:00)
[2022-02-16 06:58] LABS: Basophils # (Auto) 0.05 K/mcL (0.00-0.30); Basophils % (Auto) 0.7 % (0.0-2.0); Eosinophils # (Auto) 0.63 K/mcL (0.00-0.70); Eosinophils % (Auto) 8.9 % (0.0-7.0); Hematocrit 28.8 % (34.1-44.9); Hemoglobin 8.7 g/dL (11.2-15.7); Lymphocytes % (Auto) 14.2 % (15.5-49.0); Mean Cell Volume 99.3 fL (80.0-100.0); Mean Corpuscular HGB Conc 30.2 g/dL (31.0-36.0); Mean Platelet Volume 9.4 fL (8.8-12.5); Monocytes # (Auto) 0.88 K/mcL (0.10-0.90); Monocytes % (Auto) 12.5 % (1.0-12.0); Neutrophils % (Auto) 62.4 % (38.0-78.0); Platelet Count 170 K/mcL (140-440); Red Cell Distribution Width 16.3 % (11.5-14.5)
[2022-02-16 07:31] LABS: INR 2.4 (0.9-1.1); Prothrombin Time 26.7 sec (11.9-14.5)
[2022-02-16 07:33] LABS: ALT/SGPT < 5 U/L (<40); AST/SGOT 14 U/L (<32); Albumin 3.2 gm/dL (3.2-5.2); Albumin/Globulin Ratio 1.1 (1.0-2.3); Alkaline Phosphatase 180 U/L (39-117); Bilirubin,Total 0.5 mg/dL (0.1-1.0); Blood Urea Nitrogen 27 mg/dL (8-23); Calcium 8.3 mg/dL (8.6-10.4); Carbon Dioxide 23 mmol/L (22-30); Chloride 106 mmol/L (96-108); Globulin 2.8 gm/dL (2.2-3.7); Glomerular Filtration Rate 38; Glucose 95 mg/dL (70-105)
[2022-02-16] MEDS: ONDANSETRON 4 MG/2 ML VIAL IV PRN (08:52)
--- NOTE | 2022-02-16 11:04 | General Surgery Progress Note ---
SUBJECTIVE Subjective Patient information: Note initiated : 02/16/22 at 11:00 am Service Date, if different from initiated Date: [] Patient: Courtney Reid 81 y/o F admitted on 02/10/22 for Lower Leg Infection. Chief Complaint: [] Additional PMFSH (Level 3 Only): Patient seen. She had an uneventful night. Progressing well with physical therapy. Reports feeling well with PT. Preoperative w/u reviewed with Nigel De Paz, Manager Lan. INR still elevated, (though trending down) 2.4 today. Constitutional Vitals: Vital Signs Temp Pulse Resp BP Pulse Ox O2 Del Method 97.8 F 89 12 132/84 94 02/16/22 08:00 02/16/22 08:00 02/16/22 08:00 02/16/22 08:00 02/16/22 08:00 02/16/22 08:00 Period Temp Pulse Resp BP Sys/Landry Pulse Ox O2 Del Method O2 Flow Rate Last 24 Hr 97.2 F-98.9 F 73-89 12-20 108-132/58-84 92-97 Room Air-Room Air Intake and Output 02/15/22 02/16/22 02/16/22 21:59 05:59 13:59 Intake Total 390 300 Output Total 295 400 Balance 95 -100 Weight 180 lb Intake & Output: Intake & Output 02/15/22 02/16/22 02/16/22 21:59 05:59 13:59 Intake Total 390 300 Output Total 295 400 Balance 95 -100 Weight 180 lb Intake: Oral 390 300 Output: Void Amount 295 400 Other: Meal Dinner Percent of Meal Consumed 75% Feeding Ability Independent Urine Appearance Clear Clear Urine Color Yellow Dark Yellow Urine Odor Normal Normal Exam: 02/16/2022 NO changes in NIKOLAY. Bilateral lower leg wound sites are unchanged. Spoke with patient, Dr. Ochoa, Hospitalist and Nigel De Paz Manager Lan. Will hold off on surgical / Versa Jet debridement today. Concern for post surgery oozing / bleeding. Coumadin on hold. Reassess INR in AM and decide. A/P Narrative A/P Narrative: Assessment: No changes in NIKOLAY. INR still elevated though trending down. Coumadin on hold. Check INR in AM. Plan: Hold cancel surgery for today 02/16/2022 OK to feed patient . Check INR tomorrow and reassss. Plan of Treatment: Plan: Schedule OR surgical debridement. See Pre Op Orders. Answered all patient's Qs about surgery. Plan reviewed with Dr. Poon and nurse IC. Hold off on D/C at this time. Reassess later after debridement. Time Spent With Patient Time: Total time spent is greater than 50% in coordination of care (as documented) at patient's floor/unit and/or counseling patient:
[2022-02-16] MEDS: METOPROLOL SUCCINATE 50 MG TAB.XL.24H PO SCH (11:05)
[2022-02-16] MEDS: GABAPENTIN 100 MG CAPSULE PO SCH ×2 (11:05→20:44)
[2022-02-16] MEDS: LEVOTHYROXINE 100 MCG TABLET PO SCH (11:05)
[2022-02-16] MEDS: LACTOBACILLUS 1 CAPSULE PO SCH (11:05)
[2022-02-16] MEDS: SIMVASTATIN 20 MG TABLET PO SCH (11:06)
[2022-02-16] MEDS: DOCUSATE SODIUM 100 MG CAPSULE PO SCH ×2 (11:06→20:43)
[2022-02-16] MEDS: TORSEMIDE 10 MG TABLET PO SCH (11:06)
[2022-02-16] MEDS: CIPROFLOXACIN 500 MG TABLET PO SCH ×2 (11:06→20:43)
[2022-02-16] MEDS: ISOSORBIDE MONONITRATE 60 MG TAB.XL.24H PO SCH (11:07)
[2022-02-16] MEDS: ALLOPURINOL 300 MG TABLET PO SCH (11:07)
[2022-02-16] MEDS: ACETAMINOPHEN 325 MG TABLET PO PRN (11:24)
--- NOTE | 2022-02-16 12:09 | Internal Med Progress Note ---
SUBJECTIVE Subjective Patient information: Note initiated : 02/16/22 at 12:07 pm Service Date, if different from initiated Date: [] Patient: Courtney Reid 81 y/o F admitted on 02/10/22 for Lower Leg Infection. Chief Complaint: [] Interval history: Ms. Reid is a 81 year old F With history of bilateral lower extremity wounds for several months has been following with Dr. Berrios. Sent from Dr. Berrios office due to concerns of sepsis with cellulitis of the wounds which are draining and painful and red and warm. Patient states over the past week her legs have become increasingly tender. She states are always erythematous and started felt that is different but they are definitely more painful and she is also had more swelling past couple days. She denies fevers or chills. In the ED she was evaluated she had vital stable signs and a normal temperature. Her CRP was elevated 8.5. She admits to feeling constipated from pain medications. 02/11 Patient says she is a little uncomfortable and had poor sleep. Other than that it was some reported chills she denies any other complaints. Awaiting cultures. Anemia present. Awaiting Dr. Berrios's evaluation and wound care. 02/12 Patient does not seem to be quite as uncomfortable today. She says she was constipated had a large bowel movements and feels somewhat better from that standpoint although she says she has also little residual abdominal discomfort from it. Wound culture pending. Follow-up CRP. Continue wound care. 02/13 New complaints. Superficial wound cultures grew out Pseudomonas aeruginosa. CRP now improving. BUN/creatinine slightly bumped. We will hold diuretic today and ARB. She is on metoprolol and carvedilol. We will stop carvedilol and continue Toprol for soft blood pressures. 02/14 Patient complains of leg pains. No other new complaints overnight events. Awaiting physical therapy. She will likely need alf facility. 02/15 Patient seems a bit more comfortable today. No overnight event or new complaints. Awaiting placement to SNF. Creatinine improved after holding the diuretics for a day. Restart the diuretics likely tomorrow. 02/16: Afebrile overnight. On room air. INR 2.4 this morning. Bilateral leg wounds debridement got cancelled by surgery team due to INR level, rescheduled to tomorrow. Hold Warfarin, repeat INR tomorrow. Continue PO Ciprofloxacin for now for the bilateral leg cellulitis. Pending SNF placement. Patient is c/o severe bilateral legs burning pain. Denies fever or chills or sweating. Constitutional Vitals: Vital Signs Temp Pulse Resp BP Pulse Ox O2 Del Method 36.6 C 89 12 132/84 94 02/16/22 08:00 02/16/22 08:00 02/16/22 08:00 02/16/22 08:00 02/16/22 08:00 02/16/22 08:00 Period Temp Pulse Resp BP Sys/Landry Pulse Ox O2 Del Method O2 Flow Rate Last 24 Hr 36.2 C-37.2 C 73-89 12-18 108-132/58-84 92-97 Room Air-Room Air Intake and Output 02/15/22 02/16/22 02/16/22 21:59 05:59 13:59 Intake Total 390 300 240 Output Total 295 400 100 Balance 95 -100 140 Weight 81.647 kg Intake & Output: Intake & Output 02/15/22 02/16/22 02/16/22 21:59 05:59 13:59 Intake Total 390 300 240 Output Total 295 400 100 Balance 95 -100 140 Weight 81.647 kg Intake: Oral 390 300 240 Output: Void Amount 295 400 100 Other: Meal Dinner Percent of Meal Consumed 75% Feeding Ability Independent Urine Appearance Clear Clear Clear Urine Color Yellow Dark Yellow Dark Yellow Urine Odor Normal Normal Normal Head Head exam: Present atraumatic and normal inspection Eye Eye exam: Present normal appearance ENT ENT exam: Present mucous membranes moist, normal exam and normal external ear exam Neck Neck exam: Present normal inspection Respiratory Respiratory exam: Present normal respiratory exam Cardiovascular Cardiovascular exam: Present irregular rhythm Additional comments: pacemaker in place GI/Abdominal GI/Abdominal exam: Present normal bowel sounds Back Exam Back exam: Present normal inspection Neurological Exam Neurological exam: Present alert and oriented X3 Skin Skin exam: Present warm; Absent intact Additional comments: Bilateral lower legs covered by wound dressings OBJ DATA Labs CBC & Chem 7: 02/16/22 05:19 02/16/22 05:19 Labs: Abnormal Lab Results 02/16/22 02/16/22 02/16/22 05:19 05:19 05:19 RBC 2.90 L Hgb 8.7 L Hct 28.8 L MCHC 30.2 L RDW 16.3 H Immature Gran % (Auto) 1.3 H Lymph % (Auto) 14.2 L Taylor % (Auto) 12.5 H Eos % (Auto) 8.9 H Lymph # (Auto) 1.00 L Immature Gran # 0.09 H PT 26.7 H INR 2.4 H BUN 27 H Creatinine 1.3 H Calcium 8.3 L Alkaline Phosphatase 180 H 02/15/22 02/15/22 02/14/22 05:13 05:13 04:52 RBC Hgb Hct MCHC RDW Immature Gran % (Auto) Lymph % (Auto) Taylor % (Auto) Eos % (Auto) Lymph # (Auto) Immature Gran # PT 27.5 H 28.8 H INR 2.5 H 2.6 H BUN 33 H Creatinine 1.4 H Calcium 8.2 L Alkaline Phosphatase Meds: Medications Acetaminophen (Acetaminophen 325 Mg Tablet) 650 mg PO Q6HP PRN; Protocol PRN Reason: Per Pain Protocol/Fever > 101 Last Admin: 02/16/22 11:24 Dose: 650 mg Hydrocodone Bitart/Acetaminophen (Hydrocodone/Apap 5/325mg Tablet) 1 tab PO Q4HP PRN PRN Reason: PAIN LEVEL 3-6 Last Admin: 02/15/22 23:24 Dose: 1 tab Albuterol/Ipratropium (Ipratropium/Albuterol 3 Ml Ampul.Neb) 3 ml NEB Q4HP PRN PRN Reason: Shortness Of Breath Allopurinol (Allopurinol 300 Mg Tablet) 300 mg PO QDAY [facility] Last Admin: 02/16/22 11:07 Dose: 300 mg Calcium Carbonate/Glycine (Calcium Carbonate 500 Mg Tab.Chew) 500 mg CHEWED DAILYP PRN PRN Reason: Acid Reflux Last Admin: 02/12/22 15:19 Dose: 500 mg Ciprofloxacin (Ciprofloxacin 500 Mg Tablet) 500 mg PO BID [facility]; Protocol Last Admin: 02/16/22 11:06 Dose: 500 mg Docusate Sodium (Docusate Sodium 100 Mg Capsule) 100 mg PO BID [facility] Last Admin: 02/16/22 11:06 Dose: 100 mg Gabapentin (Gabapentin 100 Mg Capsule) 200 mg PO BID [facility] Last Admin: 02/16/22 11:05 Dose: 200 mg Hydromorphone HCl (Hydromorphone 0.5 Mg/0.5 Ml Syringe) 0 mg IV Q2HP PRN PRN Reason: Pain Last Admin: 02/15/22 12:53 Dose: 0.5 mg Potassium Chloride 40 meq/ (Dextrose) 520 mls @ 130 mls/hr IV UD PRN PRN Reason: Potassium < 3 Magnesium Sulfate (Magnesium Sulfate) 2 gm in 50 mls @ 50 mls/hr IV UD PRN PRN Reason: Magnesium </= 1.6 Gentamicin Sulfate 40 mg/Clindamycin Phosphate 300 mg/Sodium Chloride 1,003 mls @ 0 mls/hr IRR ONCE EDIE; Protocol Stop: 02/16/22 17:00 Last Admin: 02/16/22 10:52 Dose: Not Given Isosorbide Mononitrate (Isosorbide Mononitrate 60 Mg Tab.Xl.24h) 60 mg PO QDAY [facility] Last Admin: 02/16/22 11:07 Dose: 60 mg Lactobacillus Rhamnosus (Lactobacillus 1 Capsule) 1 cap PO QDAY [facility] Last Admin: 02/16/22 11:05 Dose: 1 cap Lactulose (Lactulose 20 Gm/30 Ml Oral.Linh) 20 gm PO DAILYP PRN PRN Reason: Constipation Last Admin: 02/11/22 08:26 Dose: 20 gm Levothyroxine Sodium (Levothyroxine 100 Mcg Tablet) 100 mcg PO Q48H [facility] Last Admin: 02/16/22 11:05 Dose: 100 mcg Levothyroxine Sodium (Levothyroxine 75 Mcg Tablet) 75 mcg PO Q48H [facility] Last Admin: 02/15/22 07:21 Dose: 75 mcg Melatonin (Melatonin 3 Mg Tablet) 3 mg PO QHS [facility] Last Admin: 02/15/22 21:00 Dose: 3 mg Metoclopramide HCl (Metoclopramide 10 Mg/2 Ml Vial) 10 mg IV Q6HP PRN PRN Reason: Nausea And Vomiting Last Admin: 02/10/22 21:52 Dose: 10 mg Metoprolol Succinate (Metoprolol Succinate 50 Mg Tab.Xl.24h) 50 mg PO QDAY [facility] Last Admin: 02/16/22 11:05 Dose: 50 mg Ondansetron HCl (Ondansetron 4 Mg/2 Ml Vial) 4 mg IV Q4HP PRN PRN Reason: Nausea And Vomiting Last Admin: 02/16/22 08:52 Dose: 4 mg Polyethylene Glycol (Polyethylene Glycol 3350 17 Gm Packet) 17 gm PO DAILYP PRN PRN Reason: Constipation Potassium Chloride (Potassium Chloride 20 Meq Tablet) 40 meq PO UD PRN PRN Reason: Potssium is 3-3.5 Potassium Chloride (Potassium Chloride 20 Meq Tablet) 40 meq PO UD PRN PRN Reason: Potassium < 3 Senna (Sennosides 1 Tablet) 2 tab PO DAILYP PRN PRN Reason: Constipation Last Admin: 02/10/22 21:52 Dose: 2 tab Silver Sulfadiazine (Silver Sulfadiazine Cream.Top 25gm) 1 dose TOPICAL DAILY [facility] Simvastatin (Simvastatin 20 Mg Tablet) 20 mg PO DAILY [facility] Last Admin: 02/16/22 11:06 Dose: 20 mg Sodium Chloride (0.9 % Sodium Chloride 10 Ml Syringe) 10 ml IV Q8 [facility] Last Admin: 02/16/22 05:33 Dose: 10 ml Torsemide (Torsemide 10 Mg Tablet) 20 mg PO DAILY [facility] Last Admin: 02/16/22 11:06 Dose: 20 mg Warfarin Sodium (Warfarin Per Pharmacy) 1 order PO UD [facility] Zinc Oxide (Zinc Oxide 60gm Tube) 0 dose TOPICAL BID [facility] Last Admin: 02/15/22 21:00 Dose: 1 dose A/P Assessment and plan (1) Anemia, normocytic normochromic: Status: Acute (2) Permanent atrial fibrillation: Status: Acute (3) Combined congestive systolic and diastolic heart failure: Status: Acute (4) Cellulitis: Status: Acute Qualifiers: Laterality: unspecified laterality Site of cellulitis: extremity Site of cellulitis of extremity: lower extremity Qualified Code(s): L03.119 - Cellulitis of unspecified part of limb (5) CKD (chronic kidney disease), stage III: Status: Chronic Comment: Stable CKD 3-4 with bland U/A Controlled HTN, systolic CHF and vascular disease likely etiology (6) Hypothyroidism (acquired): Status: Acute Narrative A/P Narrative: Assessment and Plans: 1. Bilateral legs cellulitis: Inpatient med surg Wound care consult Dr. Berrios plans to take patient to the OR on 02/17 for wound debridement Wound culture: Pseudomonas aeruginosa Ciprofloxacin PO Physical therapy: recs. SNF placement 2. Permanent atrial fibrillation: Pacemaker in situ Holding Warfarin, daily INR, resume Warfarin after wound debridement Metoprolol Succinate 3. Combined systolic and diastolic CHF: Metoprolol Succinate Losartan Torsemide 4. Anemia, normocytic normochromic: cbc w/ auto diff in the morning to trend H/H 5. Chronic kidney disease III: Avoid nephotoxic agents Saline lock Losartan Torsemide CMP in the morning to trend kidney functions 6. Hypothyroidism: Continue thyroid replacement therapy GI ppx: not currently indicated DVT ppx: Holding Warfarin, daily INR, resume Warfarin after wound debridement Code status: Full Prognosis: guarded Disposition: inpatient med surg; pending SNF placement Plan of Treatment: Plan: Schedule OR surgical debridement. See Pre Op Orders. Answered all patient's Qs about surgery. Plan reviewed with Dr. Poon and nurse IC. Hold off on D/C at this time. Reassess later after debridement. Time Spent With Patient Time: Total time spent is greater than 50% in coordination of care (as documented) at patient's floor/unit and/or counseling patient: Total time spent with greater than 50% in coordination of care (as documented) at patient's floor/unit and/or counseling patient:: 35 - 50 minutes QUALITY Stroke Symptom Onset Unknown: No VTE Deep Vein Thrombosis/Pulmonary Embolism Present on Admission: No
[2022-02-16] MEDS: HYDROcodone/APAP 5/325MG TABLET PO PRN ×2 (13:16→17:05)
[2022-02-16] MEDS: ZINC OXIDE TOPICAL SCH (13:57)
[2022-02-16] MEDS: SILVER SULFADIAZINE CREAM.TOP 25GM TOPICAL SCH ×2 (13:57→14:04)
[2022-02-16] MEDS ORDERED: WARFARIN 2.5 MG TABLET PO ONE (14:00)
[2022-02-16] MEDS: SENNOSIDES 1 TABLET PO PRN ×2 (14:26→20:44)
[2022-02-16] MEDS: HYDROmorphone 0.5 MG/0.5 ML SYRINGE IV PRN (14:27)
[2022-02-16] MEDS: MELATONIN 3 MG TABLET PO SCH (20:43)
[2022-02-17] MEDS: HYDROcodone/APAP 5/325MG TABLET PO PRN ×4 (03:27→20:52)
[2022-02-17] MEDS: 0.9 % SODIUM CHLORIDE 10 ML SYRINGE IV SCH ×3 (05:20→20:42)
[2022-02-17 06:28] LABS: Basophils # (Auto) 0.07 K/mcL (0.00-0.30); Basophils % (Auto) 0.8 % (0.0-2.0); Eosinophils # (Auto) 0.46 K/mcL (0.00-0.70); Eosinophils % (Auto) 5.1 % (0.0-7.0); Hematocrit 28.3 % (34.1-44.9); Hemoglobin 8.7 g/dL (11.2-15.7); Lymphocytes # (Auto) 0.74 K/mcL (1.50-4.80); Lymphocytes % (Auto) 8.3 % (15.5-49.0); Mean Corpuscular HGB Conc 30.7 g/dL (31.0-36.0); Mean Platelet Volume 10.2 fL (8.8-12.5); Monocytes # (Auto) 0.98 K/mcL (0.10-0.90); Neutrophils % (Auto) 73.7 % (38.0-78.0); Platelet Count 181 K/mcL (140-440); RBC 2.86 M/mcL (3.59-5.38); Red Cell Distribution Width 16.4 % (11.5-14.5); WBC 8.9 K/mcL (4.5-11.0)
[2022-02-17 06:42] LABS: INR 1.9 (0.9-1.1); Prothrombin Time 22.7 sec (11.9-14.5)
[2022-02-17 06:55] LABS: ALT/SGPT < 5 U/L (<40); AST/SGOT 15 U/L (<32); Albumin 3.1 gm/dL (3.2-5.2); Albumin/Globulin Ratio 1.1 (1.0-2.3); Alkaline Phosphatase 178 U/L (39-117); Bilirubin,Total 0.5 mg/dL (0.1-1.0); Blood Urea Nitrogen 30 mg/dL (8-23); Calcium 8.6 mg/dL (8.6-10.4); Carbon Dioxide 27 mmol/L (22-30); Chloride 104 mmol/L (96-108); Globulin 2.9 gm/dL (2.2-3.7); Glomerular Filtration Rate 32; Glucose 124 mg/dL (70-105)
[2022-02-17] MEDS: LEVOTHYROXINE 75 MCG TABLET PO SCH (07:34)
[2022-02-17] MEDS ORDERED: LOSARTAN 25 MG TABLET PO SCH (09:00)
[2022-02-17] MEDS: GABAPENTIN 100 MG CAPSULE PO SCH ×2 (09:10→20:23)
[2022-02-17] MEDS: DOCUSATE SODIUM 100 MG CAPSULE PO SCH ×2 (09:10→20:23)
[2022-02-17] MEDS: CIPROFLOXACIN 500 MG TABLET PO SCH ×2 (09:11→20:23)
[2022-02-17] MEDS: SIMVASTATIN 20 MG TABLET PO SCH (09:11)
[2022-02-17] MEDS: LACTOBACILLUS 1 CAPSULE PO SCH (09:11)
[2022-02-17] MEDS: ALLOPURINOL 300 MG TABLET PO SCH (09:11)
[2022-02-17] MEDS: TORSEMIDE 10 MG TABLET PO SCH (10:00)
[2022-02-17] MEDS: METOPROLOL SUCCINATE 50 MG TAB.XL.24H PO SCH (10:00)
[2022-02-17] MEDS: ISOSORBIDE MONONITRATE 60 MG TAB.XL.24H PO SCH (10:01)
[2022-02-17] MEDS: HYDROmorphone 0.5 MG/0.5 ML SYRINGE IV PRN ×2 (10:35→20:23)
--- NOTE | 2022-02-17 11:06 | Internal Med Progress Note ---
SUBJECTIVE Subjective Patient information: Note initiated : 02/17/22 at 11:00 am Service Date, if different from initiated Date: [] Patient: Courtney Reid 82 y/o F admitted on 02/10/22 for Lower Leg Infection. Chief Complaint: [] Interval history: Ms. Reid is a 81 year old F With history of bilateral lower extremity wounds for several months has been following with Dr. Berrios. Sent from Dr. Berrios office due to concerns of sepsis with cellulitis of the wounds which are draining and painful and red and warm. Patient states over the past week her legs have become increasingly tender. She states are always erythematous and started felt that is different but they are definitely more painful and she is also had more swelling past couple days. She denies fevers or chills. In the ED she was evaluated she had vital stable signs and a normal temperature. Her CRP was elevated 8.5. She admits to feeling constipated from pain medications. 02/11 Patient says she is a little uncomfortable and had poor sleep. Other than that it was some reported chills she denies any other complaints. Awaiting cultures. Anemia present. Awaiting Dr. Berrios's evaluation and wound care. 02/12 Patient does not seem to be quite as uncomfortable today. She says she was constipated had a large bowel movements and feels somewhat better from that standpoint although she says she has also little residual abdominal discomfort from it. Wound culture pending. Follow-up CRP. Continue wound care. 02/13 New complaints. Superficial wound cultures grew out Pseudomonas aeruginosa. CRP now improving. BUN/creatinine slightly bumped. We will hold diuretic today and ARB. She is on metoprolol and carvedilol. We will stop carvedilol and continue Toprol for soft blood pressures. 02/14 Patient complains of leg pains. No other new complaints overnight events. Awaiting physical therapy. She will likely need senior living facility. 02/15 Patient seems a bit more comfortable today. No overnight event or new complaints. Awaiting placement to SNF. Creatinine improved after holding the diuretics for a day. Restart the diuretics likely tomorrow. 02/16: Afebrile overnight. On room air. INR 2.4 this morning. Bilateral leg wounds debridement got cancelled by surgery team due to INR level, rescheduled to tomorrow. Hold Warfarin, repeat INR tomorrow. Continue PO Ciprofloxacin for now for the bilateral leg cellulitis. Pending SNF placement. Patient is c/o severe bilateral legs burning pain. Denies fever or chills or sweating. 02/17: Afebrile overnight. INR 1.9 this morning, down from 2.4 from yesterday. Will touch base with surgical team Dr. Berrios regarding possibility for wound debridement today. Keep holding Coumadin until after surgery. Continue PO Ciprofloxacin for now for the bilateral leg cellulitis. Pending SNF placement. Patient denies any legs pain at the moment. Denies fever or chills or sweating. Constitutional Vitals: Vital Signs Temp Pulse Resp BP Pulse Ox O2 Del Method 36.7 C 81 14 110/69 93 02/17/22 08:59 02/17/22 08:59 02/17/22 08:59 02/17/22 08:59 02/17/22 08:59 02/17/22 08:59 Period Temp Pulse Resp BP Sys/Landry Pulse Ox O2 Del Method O2 Flow Rate Last 24 Hr 36.1 C-36.8 C 80-86 12-18 103-127/60-76 91-96 Room Air-Room Air Intake and Output 02/16/22 02/17/22 02/17/22 21:59 05:59 13:59 Intake Total 390 Output Total 1350 550 Balance -1350 -160 Weight 82.554 kg Intake & Output: Intake & Output 02/16/22 02/17/22 02/17/22 21:59 05:59 13:59 Intake Total 390 Output Total 1350 550 Balance -1350 -160 Weight 82.554 kg Intake: Oral 390 Output: Void Amount 1350 550 Other: Meal Dinner Percent of Meal Consumed 75% Feeding Ability Independent Urine Appearance Clear Clear Urine Color Dark Yellow Yellow Urine Odor Normal # Voids 1 Head Head exam: Present atraumatic and normal inspection Eye Eye exam: Present normal appearance ENT ENT exam: Present mucous membranes moist, normal exam and normal external ear exam Neck Neck exam: Present normal inspection Respiratory Respiratory exam: Present normal respiratory exam Cardiovascular Cardiovascular exam: Present irregular rhythm Additional comments: Cardiac pacemaker in place GI/Abdominal GI/Abdominal exam: Present normal bowel sounds Back Exam Back exam: Present normal inspection Neurological Exam Neurological exam: Present alert and oriented X3 Skin Skin exam: Present warm; Absent intact Additional comments: Bilateral lower legs covered by wound dressings OBJ DATA Labs CBC & Chem 7: 02/17/22 05:16 02/17/22 05:16 Labs: Abnormal Lab Results 02/17/22 02/17/22 02/17/22 05:16 05:16 05:15 RBC 2.86 L Hgb 8.7 L Hct 28.3 L MCHC 30.7 L RDW 16.4 H Immature Gran % (Auto) 1.1 H Lymph % (Auto) 8.3 L [place] % (Auto) Eos % (Auto) Lymph # (Auto) 0.74 L [place] # (Auto) 0.98 H Immature Gran # 0.10 H PT 22.7 H INR 1.9 H BUN 30 H Creatinine 1.5 H Glucose 124 H Calcium Alkaline Phosphatase 178 H Albumin 3.1 L 02/16/22 02/16/22 02/16/22 05:19 05:19 05:19 RBC 2.90 L Hgb 8.7 L Hct 28.8 L MCHC 30.2 L RDW 16.3 H Immature Gran % (Auto) 1.3 H Lymph % (Auto) 14.2 L [place] % (Auto) 12.5 H Eos % (Auto) 8.9 H Lymph # (Auto) 1.00 L [place] # (Auto) Immature Gran # 0.09 H PT 26.7 H INR 2.4 H BUN 27 H Creatinine 1.3 H Glucose Calcium 8.3 L Alkaline Phosphatase 180 H Albumin 02/15/22 02/15/22 05:13 05:13 RBC Hgb Hct MCHC RDW Immature Gran % (Auto) Lymph % (Auto) [place] % (Auto) Eos % (Auto) Lymph # (Auto) [place] # (Auto) Immature Gran # PT 27.5 H INR 2.5 H BUN 33 H Creatinine 1.4 H Glucose Calcium 8.2 L Alkaline Phosphatase Albumin Meds: Medications Acetaminophen (Acetaminophen 325 Mg Tablet) 650 mg PO Q6HP PRN; Protocol PRN Reason: Per Pain Protocol/Fever > 101 Last Admin: 02/16/22 11:24 Dose: 650 mg Hydrocodone Bitart/Acetaminophen (Hydrocodone/Apap 5/325mg Tablet) 1 tab PO Q4HP PRN PRN Reason: PAIN LEVEL 3-6 Last Admin: 02/17/22 07:34 Dose: 1 tab Albuterol/Ipratropium (Ipratropium/Albuterol 3 Ml Ampul.Neb) 3 ml NEB Q4HP PRN PRN Reason: Shortness Of Breath Allopurinol (Allopurinol 300 Mg Tablet) 300 mg PO QDAY [facility] Last Admin: 02/17/22 09:11 Dose: 300 mg Calcium Carbonate/Glycine (Calcium Carbonate 500 Mg Tab.Chew) 500 mg CHEWED DAILYP PRN PRN Reason: Acid Reflux Last Admin: 02/12/22 15:19 Dose: 500 mg Ciprofloxacin (Ciprofloxacin 500 Mg Tablet) 500 mg PO BID [facility]; Protocol Last Admin: 02/17/22 09:11 Dose: 500 mg Docusate Sodium (Docusate Sodium 100 Mg Capsule) 100 mg PO BID [facility] Last Admin: 02/17/22 09:10 Dose: 100 mg Gabapentin (Gabapentin 100 Mg Capsule) 200 mg PO BID [facility] Last Admin: 02/17/22 09:10 Dose: 200 mg Hydromorphone HCl (Hydromorphone 0.5 Mg/0.5 Ml Syringe) 0 mg IV Q2HP PRN PRN Reason: Pain Last Admin: 02/17/22 10:35 Dose: 0.5 mg Potassium Chloride 40 meq/ (Dextrose) 520 mls @ 130 mls/hr IV UD PRN PRN Reason: Potassium < 3 Magnesium Sulfate (Magnesium Sulfate) 2 gm in 50 mls @ 50 mls/hr IV UD PRN PRN Reason: Magnesium </= 1.6 Isosorbide Mononitrate (Isosorbide Mononitrate 60 Mg Tab.Xl.24h) 60 mg PO QDAY [facility] Last Admin: 02/17/22 10:01 Dose: Not Given Lactobacillus Rhamnosus (Lactobacillus 1 Capsule) 1 cap PO QDAY [facility] Last Admin: 02/17/22 09:11 Dose: 1 cap Lactulose (Lactulose 20 Gm/30 Ml Oral.Linh) 20 gm PO DAILYP PRN PRN Reason: Constipation Last Admin: 02/11/22 08:26 Dose: 20 gm Levothyroxine Sodium (Levothyroxine 100 Mcg Tablet) 100 mcg PO Q48H [facility] Last Admin: 02/16/22 11:05 Dose: 100 mcg Levothyroxine Sodium (Levothyroxine 75 Mcg Tablet) 75 mcg PO Q48H [facility] Last Admin: 02/17/22 07:34 Dose: 75 mcg Losartan Potassium (Losartan 25 Mg Tablet) 12.5 mg PO DAILY [facility] Last Admin: 02/17/22 10:01 Dose: Not Given Melatonin (Melatonin 3 Mg Tablet) 3 mg PO QHS [facility] Last Admin: 02/16/22 20:43 Dose: 3 mg Metoclopramide HCl (Metoclopramide 10 Mg/2 Ml Vial) 10 mg IV Q6HP PRN PRN Reason: Nausea And Vomiting Last Admin: 02/10/22 21:52 Dose: 10 mg Metoprolol Succinate (Metoprolol Succinate 50 Mg Tab.Xl.24h) 50 mg PO QDAY [facility] Last Admin: 02/17/22 10:00 Dose: 50 mg Ondansetron HCl (Ondansetron 4 Mg/2 Ml Vial) 4 mg IV Q4HP PRN PRN Reason: Nausea And Vomiting Last Admin: 02/16/22 08:52 Dose: 4 mg Polyethylene Glycol (Polyethylene Glycol 3350 17 Gm Packet) 17 gm PO DAILYP PRN PRN Reason: Constipation Last Admin: 02/17/22 09:37 Dose: 17 gm Potassium Chloride (Potassium Chloride 20 Meq Tablet) 40 meq PO UD PRN PRN Reason: Potssium is 3-3.5 Potassium Chloride (Potassium Chloride 20 Meq Tablet) 40 meq PO UD PRN PRN Reason: Potassium < 3 Senna (Sennosides 1 Tablet) 2 tab PO DAILYP PRN PRN Reason: Constipation Last Admin: 02/16/22 20:44 Dose: 2 tab Silver Sulfadiazine (Silver Sulfadiazine Cream.Top 25gm) 1 dose TOPICAL DAILY [facility] Last Admin: 02/16/22 14:04 Dose: 1 dose Simvastatin (Simvastatin 20 Mg Tablet) 20 mg PO DAILY [facility] Last Admin: 02/17/22 09:11 Dose: 20 mg Sodium Chloride (0.9 % Sodium Chloride 10 Ml Syringe) 10 ml IV Q8 [facility] Last Admin: 02/17/22 05:20 Dose: 10 ml Torsemide (Torsemide 10 Mg Tablet) 20 mg PO DAILY [facility] Last Admin: 02/17/22 10:00 Dose: 20 mg Warfarin Sodium (Warfarin Per Pharmacy) 1 order PO UD [facility] A/P Assessment and plan (1) Anemia, normocytic normochromic: Status: Acute (2) Permanent atrial fibrillation: Status: Acute (3) Combined congestive systolic and diastolic heart failure: Status: Acute (4) Cellulitis: Status: Acute Qualifiers: Laterality: unspecified laterality Site of cellulitis: extremity Site of cellulitis of extremity: lower extremity Qualified Code(s): L03.119 - Cellulitis of unspecified part of limb (5) CKD (chronic kidney disease), stage III: Status: Chronic Comment: Stable CKD 3-4 with bland U/A Controlled HTN, systolic CHF and vascular disease likely etiology (6) Hypothyroidism (acquired): Status: Acute Narrative A/P Narrative: Assessment and Plans: 1. Bilateral legs cellulitis: Inpatient med surg Wound care consult INR 1.9 this morning, down from 2.4 from yesterday. Will touch base with surgical team Dr. Berrios regarding possibility for wound debridement today. Resume Coumadin until after the planned surgery. Wound culture: Pseudomonas aeruginosa Ciprofloxacin PO Physical therapy: recs. SNF placement 2. Permanent atrial fibrillation: Pacemaker in situ Holding Warfarin, daily INR, resume Coumadin after wound debridement Metoprolol Succinate 3. Combined systolic and diastolic CHF: Metoprolol Succinate Hold Losartan due to soft BP Torsemide 4. Anemia, normocytic normochromic: cbc w/ auto diff in the morning to trend H/H 5. Chronic kidney disease III: Avoid nephotoxic agents Saline lock Hold Losartan due to soft BP Torsemide CMP in the morning to trend kidney functions 6. Hypothyroidism: Continue thyroid replacement therapy GI ppx: not currently indicated DVT ppx: Holding Coumadin, daily INR, resume after wound debridement Code status: Full Prognosis: guarded Disposition: inpatient med surg; pending SNF placement Plan of Treatment: Plan: Schedule OR surgical debridement. See Pre Op Orders. Answered all patient's Qs about surgery. Plan reviewed with Dr. Poon and nurse IC. Hold off on D/C at this time. Reassess later after debridement. Time Spent With Patient Time: Total time spent is greater than 50% in coordination of care (as documented) at patient's floor/unit and/or counseling patient: Total time spent with greater than 50% in coordination of care (as documented) at patient's floor/unit and/or counseling patient:: 35 - 50 minutes QUALITY Stroke Symptom Onset Unknown: No VTE Deep Vein Thrombosis/Pulmonary Embolism Present on Admission: No
--- NOTE | 2022-02-17 11:32 | General Surgery Progress Note ---
SUBJECTIVE Subjective Patient information: Note initiated : 02/17/22 at 11:27 am Service Date, if different from initiated Date: [] Patient: Courtney Reid 82 y/o F admitted on 02/10/22 for Lower Leg Infection. Chief Complaint: [] Additional PMFSH (Level 3 Only): 2Patietn seen with Cintia RN and Geoff Angel janitor caretaker nurses . Leg wound examined. Constitutional Vitals: Vital Signs Temp Pulse Resp BP Pulse Ox O2 Del Method 98.0 F 81 14 110/69 93 02/17/22 08:59 02/17/22 08:59 02/17/22 08:59 02/17/22 08:59 02/17/22 08:59 02/17/22 08:59 Period Temp Pulse Resp BP Sys/Landry Pulse Ox O2 Del Method O2 Flow Rate Last 24 Hr 97.0 F-98.2 F 80-86 12-18 103-127/60-76 91-96 Room Air-Room Air Intake and Output 02/16/22 02/17/22 02/17/22 21:59 05:59 13:59 Intake Total 390 Output Total 1350 550 Balance -1350 -160 Weight 182 lb Intake & Output: Intake & Output 02/16/22 02/17/22 02/17/22 21:59 05:59 13:59 Intake Total 390 Output Total 1350 550 Balance -1350 -160 Weight 182 lb Intake: Oral 390 Output: Void Amount 1350 550 Other: Meal Dinner Percent of Meal Consumed 75% Feeding Ability Independent Urine Appearance Clear Clear Urine Color Dark Yellow Yellow Urine Odor Normal # Voids 1 Exam: AVSS. No changes NIKOLAY. l/E Bilateral leg VLU sites with demarcating slough, NEEDS OR debridement with Versa Jet. INR is under 2 this morning, A/P Narrative A/P Narrative: Assessment: Today is patient's Birthday. Wished her Happy Day. Both lower legs VLU Demarcating slough Rt. >> Lt Needs OR Versa Jet Debridement. INR today is < 2.0 Plan: NPO OR today for debridement. laboratory animal facility supervisor to coordinate. Spoke with patient at length. She understands, Agrees to proceed. Plan of Treatment: Plan: Schedule OR surgical debridement. See Pre Op Orders. Answered all patient's Qs about surgery. Plan reviewed with Dr. Poon and nurse IC. Hold off on D/C at this time. Reassess later after debridement. Time Spent With Patient Time: Total time spent is greater than 50% in coordination of care (as documented) at patient's floor/unit and/or counseling patient:
[2022-02-17] MEDS: SILVER SULFADIAZINE CREAM.TOP 25GM TOPICAL SCH (12:21)
[2022-02-17] MEDS ORDERED: ceFAZolin 2 GM in DEXTROSE 5% IN WATER 50 ML IV SCH (14:45)
[2022-02-17] MEDS ORDERED: GENTAMICIN SULFATE 800 MG/20 ML VIAL IR ONE (15:00)
[2022-02-17] MEDS ORDERED: ONDANSETRON 4 MG/2 ML VIAL ONE (15:28)
[2022-02-17] MEDS ORDERED: MAGNESIUM SULFATE 2 GM/50 ML BAG IV ONE (15:28)
[2022-02-17] MEDS ORDERED: DEXAMETHASONE 10 MG/ML VIAL ONE (15:28)
[2022-02-17] MEDS ORDERED: PROPOFOL 200 MG/20 ML VIAL IV ONE (15:28)
[2022-02-17] MEDS ORDERED: LIDOCAINE HCL/PF 100 MG/5 ML SYRINGE IV ONE (15:28)
[2022-02-17] MEDS ORDERED: ePHEDrine 50 MG/5 ML SYRINGE (ANEST) IV ONE (15:28)
[2022-02-17] MEDS ORDERED: PHENYLephrine 1 MG/10 ML SYRINGE (ANEST) ONE (15:28)
[2022-02-17] MEDS ORDERED: fentaNYL 100 MCG/2 ML VIAL IV ONE (15:28)
[2022-02-17] MEDS ORDERED: KETAMINE 50 MG/ML Syringe (ANEST) IV ONE (15:28)
[2022-02-17] MEDS ORDERED: GLYCOPYRROLATE 0.2 MG/ML VIAL IV ONE (15:28)
[2022-02-17] MEDS ORDERED: LACTATED RINGERS 250 ML IV PRN (16:17)
[2022-02-17] MEDS ORDERED: HYDROmorphone 0.5 MG/0.5 ML SYRINGE IV PRN (16:17)
[2022-02-17] MEDS ORDERED: METHOCARBAMOL 1,000 MG/10 ML VIAL IV PRN (16:17)
[2022-02-17] MEDS ORDERED: ACETAMINOPHEN 1,000 MG/100 ML BAG IV ONE (16:17)
[2022-02-17] MEDS ORDERED: NALOXONE HCL 0.4 MG/ML VIAL IV PRN (16:17)
[2022-02-17] MEDS ORDERED: ONDANSETRON 4 MG/2 ML VIAL IV PRN (16:17)
[2022-02-17] MEDS ORDERED: IPRATROPIUM/ALBUTEROL 3 ML AMPUL.NEB NEB PRN (16:17)
[2022-02-17] MEDS ORDERED: LABETALOL 5 MG/ML ML IV PRN (16:17)
[2022-02-17] MEDS ORDERED: METOPROLOL TARTRATE 5 MG/5 ML VIAL IV PRN (16:17)
[2022-02-17] MEDS: fentaNYL 100 MCG/2 ML VIAL IV PRN ×3 (16:25→16:47)
[2022-02-17] MEDS ORDERED: LACTATED RINGERS 1,000 ML IV SCH (16:30)
--- NOTE | 2022-02-17 17:29 | General Surgery Procedure Note ---
Date of procedure: Note initiated : 02/17/22 at 5:24 pm Service Date, if different from initiated Date: [] Pre-op diagnosis: Chronic VLU Bilateral lower legs. Post-op diagnosis: same Procedure: Versajet debridement. Findings: Thick demarcating adherent slough, eschar covering RIGHT lower lateral and posterior leg ulcer. 8 x 5 x 1 CM. Adherent eschar LEFT lower lateral leg ulcer 5 x 3 x 0.5 CM Grafts/Implants: NONE Anesthesia: GLMA Surgeon: Norm Berrios Estimated blood loss: 10 Pathology: none sent Description of procedure: Versa Jet debridement and open packing over wound surfaces Condition: stable Disposition: PACU
[2022-02-17] MEDS: MELATONIN 3 MG TABLET PO SCH (20:23)
[2022-02-18] MEDS: HYDROmorphone 0.5 MG/0.5 ML SYRINGE IV PRN ×2 (00:10→04:53)
[2022-02-18] MEDS: ACETAMINOPHEN 325 MG TABLET PO PRN (00:42)
[2022-02-18] MEDS: HYDROcodone/APAP 5/325MG TABLET PO PRN ×4 (00:46→13:42)
[2022-02-18 06:53] LABS: Basophils # (Auto) 0.05 K/mcL (0.00-0.30); Basophils % (Auto) 0.5 % (0.0-2.0); Eosinophils # (Auto) 0.57 K/mcL (0.00-0.70); Eosinophils % (Auto) 5.8 % (0.0-7.0); Hematocrit 30.4 % (34.1-44.9); Hemoglobin 9.2 g/dL (11.2-15.7); Lymphocytes # (Auto) 0.89 K/mcL (1.50-4.80); Mean Cell Volume 99.7 fL (80.0-100.0); Mean Corpuscular HGB Conc 30.3 g/dL (31.0-36.0); Monocytes # (Auto) 1.01 K/mcL (0.10-0.90); Monocytes % (Auto) 10.2 % (1.0-12.0); Neutrophils % (Auto) 73.5 % (38.0-78.0); Platelet Count 186 K/mcL (140-440); RBC 3.05 M/mcL (3.59-5.38); Red Cell Distribution Width 16.7 % (11.5-14.5); WBC 9.9 K/mcL (4.5-11.0)
[2022-02-18 07:15] LABS: ALT/SGPT < 5 U/L (<40); AST/SGOT 15 U/L (<32); Albumin 3.1 gm/dL (3.2-5.2); Albumin/Globulin Ratio 0.8 (1.0-2.3); Alkaline Phosphatase 179 U/L (39-117); Bilirubin,Total 0.5 mg/dL (0.1-1.0); Blood Urea Nitrogen 22 mg/dL (8-23); Calcium 8.9 mg/dL (8.6-10.4); Carbon Dioxide 27 mmol/L (22-30); Chloride 100 mmol/L (96-108); Globulin 3.8 gm/dL (2.2-3.7); Glomerular Filtration Rate 35; Glucose 129 mg/dL (70-105)
--- NOTE | 2022-02-18 07:57 | Operative Note ---
DATE OF OPERATION: 02/17/2022 DATE OF PROCEDURE: 02/17/2022 PREOPERATIVE DIAGNOSES: 1. Chronic bilateral venous leg ulcers, right side more than left. 2. Dense adherent slough; could not be debrided in the clinic. 3. The patient is symptomatic with pain and low-grade infection. POSTOPERATIVE DIAGNOSES: 1. Chronic bilateral venous leg ulcers, right side more than left. 2. Dense adherent slough; could not be debrided in the clinic. 3. The patient is symptomatic with pain and low-grade infection. PROCEDURE: VersaJet debridement. FINDINGS: Thick adherent slough with eschar covering the right lower lateral and posterolateral leg 8 x 5 x 1 cm in size. Adherent eschar left lower lateral leg ulcer 5 x 3 x 0.5 cm. ANESTHESIA: General laryngeal mask airway. [employer] PRODUCT DEVELOPMENT MANAGER: Ino De Paz CRNA SURGEON: Norm Berrios M.D. ESTIMATED BLOOD LOSS: About 10 mL. INSTRUMENT COUNTS: Count of swabs, instruments, and needles was reported to be correct. She recovered from operation uneventfully and was taken to in stable condition. INDICATIONS: This is a lady with multiple comorbid medical problems and a background of chronic lymphedema of both legs and nonhealing stalled venous leg ulcers. 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 The patient was admitted to the hospital via Emergency Room when she had an integral change in her condition with inflammation and cellulitis of both legs, right more than left, treated conservatively. After stabilization of condition and preoperative MIST treatments, she is now taken to the OR for excision and debridement of the slough. PROCEDURE NOTE IN DETAIL: After obtaining informed consent, patient was taken to the operating room. She was anesthetized uneventfully in supine position. She is already on IV antibiotics. The lower extremities were cleaned, prepped, and draped in the standard fashion. We used a 15 degree VersaJet hydrodissector. First, the right lower lateral and posterior venous leg ulcer was tangentially debrided from the periphery towards the center. This was done in a stepwise fashion until all the adherent slough was debrided. Bright red oozing was noted from the wound bed and the wound edges. Hemostasis was achieved with pressure and elevation. Similar procedure was carried out on the left side. During the Versajet irrigation we used 500 mL of gentamicin mixed with 800 mL of normal saline. Dressings consisted of Adaptic, gauze reinforced with antibiotic-soaked gauze, ABD pad, Kerlix, Coban, and Stefan bandages, respectively. The patient tolerated the procedure well. She recovered from operation uneventfully and was taken to in stable condition. VD:alisha Job ID: [id number] Doc ID: [id number] Norm Berrios MD [facility]ITALMarvin
[2022-02-18] MEDS: LEVOTHYROXINE 100 MCG TABLET PO SCH (08:29)
[2022-02-18] MEDS: 0.9 % SODIUM CHLORIDE 10 ML SYRINGE IV SCH ×2 (08:33→13:44)
[2022-02-18] MEDS: SIMVASTATIN 20 MG TABLET PO SCH (09:05)
[2022-02-18] MEDS: CIPROFLOXACIN 500 MG TABLET PO SCH (09:05)
[2022-02-18] MEDS: GABAPENTIN 100 MG CAPSULE PO SCH (09:05)
[2022-02-18] MEDS: DOCUSATE SODIUM 100 MG CAPSULE PO SCH (09:05)
[2022-02-18] MEDS: LACTOBACILLUS 1 CAPSULE PO SCH (09:06)
[2022-02-18] MEDS: METOPROLOL SUCCINATE 50 MG TAB.XL.24H PO SCH (09:55)
[2022-02-18] MEDS: TORSEMIDE 10 MG TABLET PO SCH (10:00)
[2022-02-18] MEDS: ALLOPURINOL 300 MG TABLET PO SCH (10:00)
--- NOTE | 2022-02-18 12:33 | General Surgery Progress Note ---
SUBJECTIVE Subjective Patient information: Note initiated : 02/18/22 at 12:26 pm Service Date, if different from initiated Date: [] Patient: Courtney Reid 82 y/o F admitted on 02/10/22 for Lower Leg Infection. Chief Complaint: [] Additional PMFSH (Level 3 Only): 02/18/2022 Patient seen with Jessica WILLIAMSON. POD # 1. S/P Versajet debridement of VLU both lower legs. Patient had an uneventful night. Clean dressings. Has NOT had a BM for 3 days. Constitutional Vitals: Vital Signs Temp Pulse Resp BP Pulse Ox O2 Del Method O2 Flow Rate 97.8 F 78 20 99/58 94 0 02/18/22 07:12 02/17/22 20:15 02/18/22 08:35 02/18/22 07:12 02/18/22 08:35 02/18/22 08:35 02/18/22 04:00 Period Temp Pulse Resp BP Sys/Landry Pulse Ox O2 Del Method O2 Flow Rate Last 24 Hr 97.2 F-97.8 F 78-95 15-21 97-133/58-83 91-100 Room Air-Simple Mask 0-6 Intake and Output 02/17/22 02/18/22 02/18/22 21:59 05:59 13:59 Intake Total 1550 100 Output Total 525 650 275 Balance 1025 -550 -275 Weight 182 lb 14.4 oz Intake & Output: Intake & Output 02/17/22 02/18/22 02/18/22 21:59 05:59 13:59 Intake Total 1550 100 Output Total 525 650 275 Balance 1025 -550 -275 Weight 182 lb 14.4 oz Intake: IV 150 Ancef 2 gm In Dextrose 5% in 50 Water 50 ml @ 100 mls/hr IV PREOP EDIE Rx#:[id number] Oral 400 100 IV - Manual Only 1000 Output: Void Amount 525 650 275 Other: Urine Appearance Clear Clear Clear Urine Color Dark Yellow Dark Yellow Yellow Urine Odor Normal Normal # Bowel Movements 0 Exam: AVSS.Lab results reviewed. Dressings CDI Patient awaits placement in Rehab / SNF. A/P Narrative A/P Narrative: Assessment: Satisfactory post surgical progress. Plan: OK for d/c from wound care point of view. Keep dressing CDI, May change LIDYA bandage PRN FWB and ambulation per physical therapy. Discharge medications per Hospitalist . F/u at wound care clinic 1 week. Call / confirm appointment with clinic. Plan of Treatment: Plan: Schedule OR surgical debridement. See Pre Op Orders. Answered all patient's Qs about surgery. Plan reviewed with Dr. Poon and nurse IC. Hold off on D/C at this time. Reassess later after debridement. Time Spent With Patient Time: Total time spent is greater than 50% in coordination of care (as documented) at patient's floor/unit and/or counseling patient:
--- NOTE | 2022-02-18 13:04 | Discharge Summary ---
Discharge Provider Provider IMPORTANT FOLLOW-UP INFORMATION FOR PCP: Patient information: Note initiated : 02/18/22 at 1:01 pm Service Date, if different from initiated Date: [] Patient: Courtney Reid 82 y/o F admitted on 02/10/22 for Lower Leg Infection. Chief Complaint: [] Date of admission: 02/10/22 15:47 Discharge date: 02/18/22 Primary care physician: Susan Abad Attending physician on admission: Gera Poon Consults: 02/10/22 Consult to Physician [CONS] Stat Comment: Consulting Provider: Gera Poon Reason For Exam: Physician to Consult 02/10/22 16:41 Consult to Physician [CONS] Urgent Comment: Consulting Provider: Norm Berrios Reason For Exam: Physician to Consult 02/15/22 10:53 Consult to Physician [CONS] Routine Comment: snf referral Consulting Provider: [facility] Reason For Exam: Physician to Consult Attending physician on discharge: Rajesh Garcia Pui COURSE Hospital Course Hospital course: Ms. Reid is a 81 year old F With history of bilateral lower extremity wounds for several months has been following with Dr. Berrios. Sent from Dr. Berrios office due to concerns of sepsis with cellulitis of the wounds which are draining and painful and red and warm. Patient states over the past week her legs have become increasingly tender. She states are always erythematous and started felt that is different but they are definitely more painful and she is also had more swelling past couple days. She denies fevers or chills. In the ED she was evaluated she had vital stable signs and a normal temperature. Her CRP was elevated 8.5. She admits to feeling constipated from pain medications. 02/11 Patient says she is a little uncomfortable and had poor sleep. Other than that it was some reported chills she denies any other complaints. Awaiting cultures. Anemia present. Awaiting Dr. Berrios's evaluation and wound care. 02/12 Patient does not seem to be quite as uncomfortable today. She says she was constipated had a large bowel movements and feels somewhat better from that standpoint although she says she has also little residual abdominal discomfort from it. Wound culture pending. Follow-up CRP. Continue wound care. 02/13 New complaints. Superficial wound cultures grew out Pseudomonas aeruginosa. CRP now improving. BUN/creatinine slightly bumped. We will hold diuretic today and ARB. She is on metoprolol and carvedilol. We will stop carvedilol and continue Toprol for soft blood pressures. 02/14 Patient complains of leg pains. No other new complaints overnight events. Awaiting physical therapy. She will likely need fpc facility. 02/15 Patient seems a bit more comfortable today. No overnight event or new co mplaints. Awaiting placement to SNF. Creatinine improved after holding the diuretics for a day. Restart the diuretics likely tomorrow. 02/16: Afebrile overnight. On room air. INR 2.4 this morning. Bilateral leg wounds debridement got cancelled by surgery team due to INR level, rescheduled to tomorrow. Hold Warfarin, repeat INR tomorrow. Continue PO Ciprofloxacin for now for the bilateral leg cellulitis. Pending SNF placement. Patient is c/o severe bilateral legs burning pain. Denies fever or chills or sweating. 02/17: Afebrile overnight. INR 1.9 this morning, down from 2.4 from yesterday. Will touch base with surgical team Dr. Berrios regarding possibility for wound debridement today. Keep holding Coumadin until after surgery. Continue PO Ciprofloxacin for now for the bilateral leg cellulitis. Pending SNF placement. Patient denies any legs pain at the moment. Denies fever or chills or sweating. 02/18: Discharged with home health physical therapy. 1 week follow up with Dr. López baez. Rx of Ciprofloxacin sent to pharmacy. All questions were answered prior to patient being physically discharged. Discharge diagnosis: Bilateral legs cellulitis Time Spent with Patient Time attestation: Total time spent providing and/or coordinating discharge services: Time spent: Greater than 30 minutes EXAM Constitutional Vitals: Temp Pulse Resp BP Pulse Ox O2 Del Method O2 Flow Rate 36.6 C 78 20 108/63 95 0 02/18/22 12:00 02/17/22 20:15 02/18/22 12:00 02/18/22 12:00 02/18/22 12:00 02/18/22 12:00 02/18/22 04:00 General appearance: cooperative and no acute distress Head Head exam: Present atraumatic and normocephalic Eye Eye exam: Present EOMI and PERRL ENT ENT exam: Present mucous membranes moist, normal exam and normal external ear exam Neck Neck exam: Present normal inspection; Absent lymphadenopathy, tenderness or thyromegaly Respiratory Respiratory exam: Absent accessory muscle use, respiratory distress or wheezes Cardiovascular Cardiovascular exam: Present irregular rhythm; Absent JVD GI/Abdominal GI/Abdominal exam: Present normal bowel sounds and soft; Absent organomegaly or tenderness Extremities Exam Extremities exam: Present full ROM and normal capillary refill; Absent normal inspection or tenderness Additional comments: Bilateral lower legs covered by wound dressings Neurological Exam Neurological exam: Present alert, CN II-XII intact and oriented X3; Absent motor sensory deficit Psychiatric Psychiatric exam: Present normal affect and normal mood; Absent anxious or depressed Skin Skin exam: Present dry; Absent intact Additional comments: Bilateral lower legs covered by wound dressings Discharge Data Data Completed and Pending Labs on day of discharge: Labs from last 24 hours 02/18/22 02/18/22 02/18/22 07:40 05:19 05:19 WBC 9.9 RBC 3.05 L Hgb 9.2 L Hct 30.4 L MCV 99.7 MCH 30.2 MCHC 30.3 L RDW 16.7 H Plt Count 186 MPV 10.0 Immature Gran % (Auto) 1.0 H Neut % (Auto) 73.5 Lymph % (Auto) 9.0 L Hickman % (Auto) 10.2 Eos % (Auto) 5.8 Baso % (Auto) 0.5 Lymph # (Auto) 0.89 L Hickman # (Auto) 1.01 H Eos # (Auto) 0.57 Baso # (Auto) 0.05 Immature Gran # 0.10 H Absolute Neutrophils 7.29 PT 23.0 H INR 2.0 H Sodium 138 Potassium 4.0 Chloride 100 Carbon Dioxide 27 Anion Gap 11.0 BUN 22 Creatinine 1.4 H GFR Calculation 35 Glucose 129 H Calcium 8.9 Total Bilirubin 0.5 AST 15 ALT < 5 Alkaline Phosphatase 179 H Total Protein 6.9 Albumin 3.1 L Globulin 3.8 H Albumin/Globulin Ratio 0.8 L Discharge Plan Patient/Caregiver Discharge Instructions Activity: increase activity as tolerated Diet: Regular Diet Activity Restrictions/Additional Instructions: Monitor blood pressure twice daily, keep log and bring to PCP and gas appliance installer. Prescriptions: New ciprofloxacin HCl [Cipro] 500 mg tablet 500 mg PO BID Qty: 10 0RF Continued torsemide 20 mg tablet 20 mg PO BID Qty: 180 3RF Rx Instructions: New dose pravastatin 40 mg tablet 40 mg PO QDAY allopurinol 300 mg tablet 300 mg PO QDAY albuterol sulfate 90 mcg/actuation HFA aerosol inhaler 2 puff INHALATION Q4H PRN (Reason: sob) Rx Instructions: administer with spacer calcium carbonate [Antacid (calcium carbonate)] 1 tab PO QDAY PRN (Reason: Acid Reflux) Lactobacillus acidophilus [Probiotic Acidophilus] 1 tab PO QDAY potassium chloride 20 mEq tablet,ER particles/crystals 20 meq PO QDAY 90 Days Qty: 90 levothyroxine 100 mcg tablet 100 mcg PO .COMPLEX 30 Days Rx Instructions: 100 mcg PO Every other day with 75mg on other days; losartan 25 mg tablet 12.5 mg PO DAILY Label Comments: take 1/2 tablet by mouth twice a day isosorbide mononitrate 60 mg tablet extended release 24 hr 60 mg PO QDAY Label Comments: take 1 tablet by mouth every morning warfarin 2.5 mg tablet 2.5 mg PO DAILY Label Comments: take 2 tablets by mouth once daily EXCEPT 1 TABLET ON MON, MON, AND metoprolol succinate 50 mg tablet extended release 24 hr 50 mg PO QDAY Label Comments: take 1 tablet by mouth twice a day acetaminophen-codeine 300-30 mg tablet 1 tab PO Q6H PRN (Reason: pain) gabapentin 100 mg capsule 200 mg PO BID Discontinued carvedilol 25 mg tablet 12.5 mg PO BID Rx Instructions: administer with food Follow Up Plan Follow up with: Norm Berrios MD [Physician] - (If patient discharges prior to next week she needs to follow up in [facility] on 02/21 or 02/22.) Cristopher Daniels DO [Physician] - Susan Abad ARNP [Primary Care Provider] - Patient Disposition: Home Health Service Plan of Treatment: Plan: Schedule OR surgical debridement. See Pre Op Orders. Answered all patient's Qs about surgery. Plan reviewed with Dr. Poon and nurse CARY. Hold off on D/C at this time. Reassess later after debridement. Prognosis: Fair Rehab Potential: Fair I certify that the patient requires SNF services: No Overall status at discharge: patient is progressing back to baseline Discharge Orders: Discharge Order (Routine); Ordered 02/18/22 Ordered By: Rajesh WINTERS VTE Deep Vein Thrombosis/Pulmonary Embolism Present on Admission: No
[2022-02-18] MEDS ORDERED: WARFARIN 2.5 MG TABLET PO ONE (14:00)
== END 2022-02-18 14:10 | disposition home health service (06) | DRG 603 ==
LOC: ED 09:44 → MEDSUR 15:47
PROVIDERS: ADMIT Internal Medicine; ATTEND Internal Medicine

== ENCOUNTER 2023-03-09 14:52 | Inpatient (IN) ==
[2023-03-09] MEDS ORDERED: PIPERACILLIN SODIUM/TAZOBACTAM 3.375 GM in DEXTROSE 5% IN WATER 50 ML IV ONE (15:06)
[2023-03-09] MEDS ORDERED: morphine 2 MG/ML VIAL IV ONE (16:34)
[2023-03-09 16:35] LABS: Basophils # (Auto) 0.05 K/mcL (0.00-0.30); Basophils % (Auto) 0.5 % (0.0-2.0); Eosinophils # (Auto) 0.67 K/mcL (0.00-0.70); Eosinophils % (Auto) 6.3 % (0.0-7.0); Hematocrit 31.8 % (34.1-44.9); Hemoglobin 9.9 g/dL (11.2-15.7); Lymphocytes # (Auto) 0.55 K/mcL (1.50-4.80); Lymphocytes % (Auto) 5.2 % (15.5-49.0); Mean Cell Volume 103.2 fL (80.0-100.0); Mean Corpuscular HGB Conc 31.1 g/dL (31.0-36.0); Monocytes # (Auto) 1.06 K/mcL (0.10-0.90); Neutrophils % (Auto) 77.2 % (38.0-78.0); Platelet Count 152 K/mcL (140-440); RBC 3.08 M/mcL (3.59-5.38); Red Cell Distribution Width 15.9 % (11.5-14.5); WBC 10.6 K/mcL (4.5-11.0)
[2023-03-09] MEDS ORDERED: morphine 4 MG/ML VIAL IV ONE ×2 (16:55→19:58)
[2023-03-09] MEDS ORDERED: HYDROcodone/APAP 10/325MG TABLET PO ONE (17:01)
[2023-03-09] MEDS: ACETAMINOPHEN 650 MG/65 ML BAG IV PRN (17:01)
[2023-03-09 17:19] LABS: ALT/SGPT < 5 U/L (<40); AST/SGOT 22 U/L (<32); Albumin 3.4 gm/dL (3.2-5.2); Albumin/Globulin Ratio 0.9 (1.0-2.3); Alkaline Phosphatase 145 U/L (39-117); Bilirubin,Total 1.2 mg/dL (0.1-1.0); Blood Urea Nitrogen 155 mg/dL (8-23); Calcium 8.5 mg/dL (8.6-10.4); Carbon Dioxide 27 mmol/L (22-30); Chloride 89 mmol/L (96-108); Globulin 3.7 gm/dL (2.2-3.7); Glomerular Filtration Rate 19; Glucose 116 mg/dL (70-105)
[2023-03-09] MEDS ORDERED: HYDROcodone/APAP 5/325MG TABLET PO ONE (17:21)
[2023-03-09 20:11] LABS: Appearance,Urine HAZY (Clear); Bacteria,Urine FEW /hpf (0); Bilirubin,Urine Negative (Negative); Color,Urine YELLOW; Culture Indicated,Urine Yes; Glucose,Urine (UA) Negative (Negative); Ketones,Urine Negative (Negative); Leukocyte Esterase,Urine Negative /uL (Negative); Mucus,Urine FEW /hpf; Nitrate,Urine Negative (Negative); Protein,Urine Negative (Negative); Specific Gravity,Urine 1.013 (1.000-1.035); Urine Blood Negative (Negative); Urine Hyaline Cast 3 /lph (0-2); Urine RBC 2 /hpf (0-3); Urine Squamous Epithelial Cell 3 /hpf (0-4); Urine WBC 3 /hpf (0-4); Urobilinogen,Urine Negative
[2023-03-09] MEDS ORDERED: VANCOMYCIN 1,000 MG in 0.9 % SODIUM CHLORIDE 250 ML IV ONE (20:46)
[2023-03-09] MEDS ORDERED: HYDROmorphone 0.5 MG/0.5 ML SYRINGE IV ONE (20:46)
[2023-03-10] MEDS ORDERED: morphine 2 MG/ML VIAL IV ONE (06:38)
[2023-03-10 06:51] LABS: POC Blood Urea Nitrogen > 140 (6-20); POC Calcium, Ionized 0.96 (1.16-1.32); POC Chloride 94 (96-108); POC Creatinine 2.3 (0.6-1.2); POC Glucose, Random 116 (70-105); POC Potassium 3.5 (3.3-5.1); POC Sodium 137 (133-145)
[2023-03-10] MEDS: ACETAMINOPHEN 650 MG/65 ML BAG IV PRN ×3 (06:51→20:26)
[2023-03-10] MEDS ORDERED: fentaNYL 100 MCG/2 ML VIAL IV ONE (08:09)
[2023-03-10] MEDS ORDERED: POLYETHYLENE GLYCOL 3350 17 GM PACKET PO ONE (08:12)
[2023-03-10] MEDS ORDERED: MINERAL OIL 1 DOSE ENEMA PR ONE (08:12)
[2023-03-10] MEDS ORDERED: MAGNESIUM CITRATE 300 ML ORAL.SOL PO ONE (08:13)
[2023-03-10] MEDS ORDERED: FLEETS ADULT ENEMA PR ONE (08:22)
[2023-03-10] MEDS ORDERED: IPRATROPIUM/ALBUTEROL 3 ML AMPUL.NEB NEB PRN (11:28)
[2023-03-10] MEDS ORDERED: VANCOMYCIN PER PHARMACY IV SCH (11:28)
[2023-03-10] MEDS ORDERED: ACETAMINOPHEN 325 MG TABLET PO PRN (11:28)
[2023-03-10] MEDS ORDERED: ONDANSETRON 4 MG/2 ML VIAL IV PRN (11:28)
[2023-03-10] MEDS ORDERED: PIPERACILLIN SODIUM/TAZOBACTAM 3.375 GM in DEXTROSE 5% IN WATER 50 ML IV ONE (12:00)
[2023-03-10] MEDS: morphine 4 MG/ML VIAL IV PRN ×3 (12:16→21:44)
[2023-03-10 13:22] LABS: Vancomycin,Random 19.5 ug/mL
[2023-03-10] MEDS: oxyCODONE IR 5 MG TABLET PO PRN ×3 (13:50→23:00)
[2023-03-10] MEDS: 0.9 % SODIUM CHLORIDE 10 ML SYRINGE IV SCH ×2 (14:33→21:44)
[2023-03-10] MEDS: SENNOSIDES 1 TABLET PO SCH (20:30)
[2023-03-10] MEDS: DOCUSATE SODIUM 100 MG CAPSULE PO SCH (20:30)
[2023-03-10] MEDS: CALCIUM CARBONATE 500 MG TAB.CHEW PO SCH (20:31)
[2023-03-10] MEDS: PIPERACILLIN SODIUM/TAZOBACTAM 3.375 GM in DEXTROSE 5% IN WATER 100 ML IV SCH (21:44)
[2023-03-10] MEDS: traZODone HCL 50 MG TABLET PO PRN (23:00)
[2023-03-11] MEDS: 0.9 % SODIUM CHLORIDE 10 ML SYRINGE IV SCH ×4 (05:08→21:55)
[2023-03-11] MEDS: morphine 4 MG/ML VIAL IV PRN ×4 (05:08→23:45)
[2023-03-11] MEDS: PIPERACILLIN SODIUM/TAZOBACTAM 3.375 GM in DEXTROSE 5% IN WATER 100 ML IV SCH (05:15)
[2023-03-11 06:42] LABS: Basophils # (Auto) 0.06 K/mcL (0.00-0.30); Basophils % (Auto) 0.5 % (0.0-2.0); Eosinophils # (Auto) 0.52 K/mcL (0.00-0.70); Eosinophils % (Auto) 4.8 % (0.0-7.0); Hematocrit 30.9 % (34.1-44.9); Hemoglobin 9.7 g/dL (11.2-15.7); Lymphocytes # (Auto) 0.54 K/mcL (1.50-4.80); Lymphocytes % (Auto) 4.9 % (15.5-49.0); Mean Corpuscular HGB Conc 31.4 g/dL (31.0-36.0); Mean Platelet Volume 11.6 fL (8.8-12.5); Monocytes # (Auto) 1.06 K/mcL (0.10-0.90); Monocytes % (Auto) 9.7 % (1.0-12.0); Neutrophils % (Auto) 79.5 % (38.0-78.0); Platelet Count 125 K/mcL (140-440); Red Cell Distribution Width 15.9 % (11.5-14.5); WBC 10.9 K/mcL (4.5-11.0)
[2023-03-11 06:59] LABS: Vancomycin,Random 17.7 ug/mL
[2023-03-11 08:12] LABS: ALT/SGPT < 5 U/L (<40); AST/SGOT 16 U/L (<32); Albumin 2.8 gm/dL (3.2-5.2); Albumin/Globulin Ratio 0.8 (1.0-2.3); Alkaline Phosphatase 106 U/L (39-117); Bilirubin,Direct 0.8 mg/dL (<0.3); Blood Urea Nitrogen 130 mg/dL (8-23); Calcium 7.9 mg/dL (8.6-10.4); Carbon Dioxide 26 mmol/L (22-30); Chloride 94 mmol/L (96-108); Globulin 3.4 gm/dL (2.2-3.7); Glomerular Filtration Rate 24; Glucose 105 mg/dL (70-105); Lactate Dehydrogenase 172 U/L (135-225); Phosphorous 4.1 mg/dL (2.5-4.5); Triglycerides 73 mg/dL (<150); Uric Acid 8.3 mg/dL (2.5-8.0)
[2023-03-11] MEDS ORDERED: MAGNESIUM SULFATE 2 GM/50 ML BAG IV SCH (08:14)
[2023-03-11] MEDS: DOCUSATE SODIUM 100 MG CAPSULE PO SCH ×2 (08:32→21:55)
[2023-03-11] MEDS: CALCIUM CARBONATE 500 MG TAB.CHEW PO SCH ×2 (08:32→21:53)
[2023-03-11] MEDS ORDERED: POTASSIUM CHLORIDE 20 MEQ TABLET PO SCH (08:39)
[2023-03-11] MEDS ORDERED: METOLAZONE 2.5 MG TABLET PO SCH (09:00)
[2023-03-11] MEDS ORDERED: CHLORHEXIDINE GLUCONATE 0.12% TOPICAL SCH (09:00)
[2023-03-11] MEDS ORDERED: CHLORHEXIDINE 4% PO SCH (09:00)
[2023-03-11] MEDS: LEVOTHYROXINE 75 MCG TABLET PO SCH (09:46)
[2023-03-11] MEDS: NORTRIPTYLINE 10 MG CAPSULE PO SCH (09:47)
[2023-03-11] MEDS: ALLOPURINOL 300 MG TABLET PO SCH (09:47)
[2023-03-11] MEDS: MUPIROCIN OINT 2% 22GM NARES SCH ×2 (09:47→21:55)
[2023-03-11] MEDS: CLOPIDOGREL 75 MG TABLET PO SCH (09:47)
[2023-03-11] MEDS: ISOSORBIDE MONONITRATE 60 MG TAB.XL.24H PO SCH (09:51)
[2023-03-11] MEDS: TORSEMIDE 20 MG TABLET PO SCH ×2 (10:05→10:14)
[2023-03-11] MEDS: oxyCODONE IR 5 MG TABLET PO PRN ×3 (10:41→21:54)
[2023-03-11] MEDS ORDERED: MAGNESIUM SULFATE 2 GM/50 ML BAG IV PRN (10:42)
[2023-03-11] MEDS ORDERED: POTASSIUM CHLORIDE 40 MEQ in DEXTROSE 5% IN WATER 500 ML IV PRN (10:42)
[2023-03-11] MEDS ORDERED: POTASSIUM CHLORIDE 20 MEQ TABLET PO PRN ×2 (10:42)
[2023-03-11 10:43] LABS: Anisocytosis 1+ (None Seen); Eosinophils % (Manual) 4 % (0-7); Lymphocytes % 6 % (15-49); Macrocytosis 1+ (None Seen); Monocytes % (Manual) 3 % (1-12); Ovalocytes FEW (None Seen); Platelet Estimate DECREASED (Normal); Poikilocytosis 1+ (None Seen); Polychromasia FEW (None Seen); RBC Morphology ABNORMAL (Normal); Segmented Neutrophils % 87 % (38-78); Tear Drop Cells FEW (None Seen)
[2023-03-11] MEDS: HYDROCODONE/APAP 7.5/325MG TABLET PO PRN ×2 (12:48→19:15)
[2023-03-11] MEDS: PIPERACILLIN SODIUM/TAZOBACTAM 3.375 GM in 0.9 % SODIUM CHLORIDE 100 ML IV SCH ×2 (14:25→21:53)
[2023-03-11 18:47] LABS: Blood Urea Nitrogen 129 mg/dL (8-23); Calcium 8.3 mg/dL (8.6-10.4); Carbon Dioxide 26 mmol/L (22-30); Chloride 93 mmol/L (96-108); Glomerular Filtration Rate 24; Glucose 151 mg/dL (70-105)
[2023-03-11] MEDS: SENNOSIDES 1 TABLET PO SCH (21:53)
[2023-03-11] MEDS: GABAPENTIN 100 MG CAPSULE PO SCH (21:53)
[2023-03-11] MEDS: HEPARIN 5,000 UNIT/ML VIAL SQ SCH (21:54)
[2023-03-11] MEDS: traZODone HCL 50 MG TABLET PO PRN (21:54)
[2023-03-11] MEDS: ATORVASTATIN 10 MG TABLET PO SCH (21:55)
[2023-03-12] MEDS: 0.9 % SODIUM CHLORIDE 10 ML SYRINGE IV SCH ×3 (05:09→20:52)
[2023-03-12] MEDS ORDERED: PIPERACILLIN SODIUM/TAZOBACTAM 3.375 GM in DEXTROSE 5% IN WATER 100 ML IV SCH (06:00)
[2023-03-12 07:00] LABS: Vancomycin,Random 15.4 ug/mL
[2023-03-12] MEDS: LEVOTHYROXINE 100 MCG TABLET PO SCH (07:50)
[2023-03-12 08:28] LABS: ALT/SGPT < 5 U/L (<40); AST/SGOT 15 U/L (<32); Albumin 2.5 gm/dL (3.2-5.2); Albumin/Globulin Ratio 0.7 (1.0-2.3); Alkaline Phosphatase 106 U/L (39-117); Bilirubin,Direct 0.8 mg/dL (<0.3); Blood Urea Nitrogen 123 mg/dL (8-23); Calcium 8.5 mg/dL (8.6-10.4); Carbon Dioxide 21 mmol/L (22-30); Chloride 96 mmol/L (96-108); Globulin 3.6 gm/dL (2.2-3.7); Glomerular Filtration Rate 24; Glucose 98 mg/dL (70-105); Lactate Dehydrogenase 169 U/L (135-225); Phosphorous 4.7 mg/dL (2.5-4.5); Triglycerides 83 mg/dL (<150); Uric Acid 7.5 mg/dL (2.5-8.0)
[2023-03-12] MEDS: morphine 4 MG/ML VIAL IV PRN ×2 (08:45→15:32)
[2023-03-12] MEDS ORDERED: cefTRIAXone 1 GM VIAL IV SCH (09:00)
[2023-03-12] MEDS ORDERED: VANCOMYCIN 1,000 MG in 0.9 % SODIUM CHLORIDE 250 ML IV SCH (10:00)
[2023-03-12] MEDS: DOCUSATE SODIUM 100 MG CAPSULE PO SCH ×2 (10:14→20:52)
[2023-03-12] MEDS: CLOPIDOGREL 75 MG TABLET PO SCH (10:14)
[2023-03-12] MEDS: VANCOMYCIN 125 MG CAPSULE PO SCH (10:14)
[2023-03-12] MEDS: NORTRIPTYLINE 10 MG CAPSULE PO SCH (10:14)
[2023-03-12] MEDS: CEFEPIME 1 GM VIAL IV SCH (10:14)
[2023-03-12] MEDS: HYDROCODONE/APAP 7.5/325MG TABLET PO PRN ×2 (10:16→18:03)
[2023-03-12] MEDS: CALCIUM CARBONATE 500 MG TAB.CHEW PO SCH ×2 (10:16→20:52)
[2023-03-12] MEDS: ALLOPURINOL 300 MG TABLET PO SCH (10:17)
[2023-03-12] MEDS: ISOSORBIDE MONONITRATE 60 MG TAB.XL.24H PO SCH (10:18)
[2023-03-12] MEDS: CHLORHEXIDINE 4% PO SCH (10:19)
[2023-03-12] MEDS: HEPARIN 5,000 UNIT/ML VIAL SQ SCH ×2 (10:21→20:51)
[2023-03-12] MEDS: MUPIROCIN OINT 2% 22GM NARES SCH ×2 (10:29→20:52)
[2023-03-12] MEDS: GABAPENTIN 100 MG CAPSULE PO SCH (20:51)
[2023-03-12] MEDS: SENNOSIDES 1 TABLET PO SCH (20:51)
[2023-03-12] MEDS: ATORVASTATIN 10 MG TABLET PO SCH (20:52)
[2023-03-13] MEDS: HYDROCODONE/APAP 7.5/325MG TABLET PO PRN ×3 (04:25→17:51)
[2023-03-13] MEDS: 0.9 % SODIUM CHLORIDE 10 ML SYRINGE IV SCH ×3 (05:21→22:01)
[2023-03-13 06:47] LABS: ALT/SGPT < 5 U/L (<40); AST/SGOT 13 U/L (<32); Albumin 2.7 gm/dL (3.2-5.2); Albumin/Globulin Ratio 0.8 (1.0-2.3); Alkaline Phosphatase 112 U/L (39-117); Bilirubin,Direct 0.7 mg/dL (<0.3); Blood Urea Nitrogen 118 mg/dL (8-23); Calcium 8.7 mg/dL (8.6-10.4); Carbon Dioxide 24 mmol/L (22-30); Chloride 95 mmol/L (96-108); Globulin 3.4 gm/dL (2.2-3.7); Glomerular Filtration Rate 22; Glucose 93 mg/dL (70-105); Lactate Dehydrogenase 160 U/L (135-225); Phosphorous 4.8 mg/dL (2.5-4.5); Triglycerides 79 mg/dL (<150); Uric Acid 6.6 mg/dL (2.5-8.0)
[2023-03-13] MEDS: LEVOTHYROXINE 75 MCG TABLET PO SCH (07:41)
[2023-03-13] MEDS: OMEPRAZOLE 20 MG CAPSULE PO SCH (07:41)
[2023-03-13] MEDS ORDERED: TORSEMIDE 20 MG TABLET PO SCH (09:00)
[2023-03-13] MEDS ORDERED: METOLAZONE 2.5 MG TABLET PO SCH (09:00)
[2023-03-13] MEDS: ISOSORBIDE MONONITRATE 60 MG TAB.XL.24H PO SCH (09:26)
[2023-03-13] MEDS: MUPIROCIN OINT 2% 22GM NARES SCH ×2 (09:27→21:49)
[2023-03-13] MEDS: LACTOBACILLUS 1 CAPSULE PO SCH (09:27)
[2023-03-13] MEDS: CLOPIDOGREL 75 MG TABLET PO SCH (09:27)
[2023-03-13] MEDS: CALCIUM CARBONATE 500 MG TAB.CHEW PO SCH ×2 (09:27→22:02)
[2023-03-13] MEDS: ALLOPURINOL 300 MG TABLET PO SCH (09:27)
[2023-03-13] MEDS: CEFEPIME 1 GM VIAL IV SCH (09:27)
[2023-03-13] MEDS: DOCUSATE SODIUM 100 MG CAPSULE PO SCH ×2 (09:27→21:49)
[2023-03-13] MEDS: HEPARIN 5,000 UNIT/ML VIAL SQ SCH ×2 (09:27→21:49)
[2023-03-13] MEDS: NORTRIPTYLINE 10 MG CAPSULE PO SCH (09:27)
[2023-03-13] MEDS: CHLORHEXIDINE 4% PO SCH (09:58)
[2023-03-13] MEDS: VANCOMYCIN 125 MG CAPSULE PO SCH (10:25)
[2023-03-13] MEDS: SENNOSIDES 1 TABLET PO SCH (21:48)
[2023-03-13] MEDS: GABAPENTIN 100 MG CAPSULE PO SCH (21:48)
[2023-03-13] MEDS: oxyCODONE IR 5 MG TABLET PO PRN (21:48)
[2023-03-13] MEDS: ATORVASTATIN 10 MG TABLET PO SCH (21:48)
[2023-03-14] MEDS: 0.9 % SODIUM CHLORIDE 10 ML SYRINGE IV SCH (05:08)
[2023-03-14 06:36] LABS: Vancomycin,Random 24.9 ug/mL
[2023-03-14 06:46] LABS: Blood Urea Nitrogen 119 mg/dL (8-23); Carbon Dioxide 26 mmol/L (22-30); Chloride 94 mmol/L (96-108); Glomerular Filtration Rate 16; Glucose 95 mg/dL (70-105)
[2023-03-14] MEDS: OMEPRAZOLE 20 MG CAPSULE PO SCH (07:38)
[2023-03-14] MEDS: oxyCODONE IR 5 MG TABLET PO PRN (07:38)
[2023-03-14] MEDS: LEVOTHYROXINE 100 MCG TABLET PO SCH (07:39)
[2023-03-14] MEDS: ALLOPURINOL 300 MG TABLET PO SCH (09:20)
[2023-03-14] MEDS: DOCUSATE SODIUM 100 MG CAPSULE PO SCH (09:20)
[2023-03-14] MEDS: CLOPIDOGREL 75 MG TABLET PO SCH (09:20)
[2023-03-14] MEDS: VANCOMYCIN 125 MG CAPSULE PO SCH (09:20)
[2023-03-14] MEDS: LACTOBACILLUS 1 CAPSULE PO SCH (09:20)
[2023-03-14] MEDS: CALCIUM CARBONATE 500 MG TAB.CHEW PO SCH (09:20)
[2023-03-14] MEDS: CEFEPIME 1 GM VIAL IV SCH (09:21)
[2023-03-14] MEDS: MUPIROCIN OINT 2% 22GM NARES SCH (09:21)
[2023-03-14] MEDS: HEPARIN 5,000 UNIT/ML VIAL SQ SCH (09:21)
[2023-03-14] MEDS: NORTRIPTYLINE 10 MG CAPSULE PO SCH (09:55)
[2023-03-14] MEDS: CHLORHEXIDINE 4% PO SCH (09:55)
== END 2023-03-14 12:40 | DRG 593 ==
LOC: ED 14:52 → MEDSUR 03-10 11:18
PROVIDERS: ADMIT Internal Medicine; ATTEND Internal Medicine